=== PATIENT | male | born 1945 | race Caucasian/White ===

== ENCOUNTER → 2017-01-09 | Outpatient (CLI) | payer MEDICARE, BC | LOC: MW.CHFP 08:52 | PROVIDERS: ATTEND Emergency Medicine | DX: J44.9 Chronic obstructive pulmonary disease, unspecified (principal); I10 Essential (primary) hypertension; E83.42 Hypomagnesemia; N18.3 Chronic kidney disease, stage 3 (moderate); E11.9 Type 2 diabetes mellitus without complications; Z79.4 Long term (current) use of insulin | CPT/HCPCS: 36415; 80048; 82310; 83036; 83735; 83970; 85027; G0463 ==

== ENCOUNTER → 2017-01-26 | Outpatient (CLI) | payer MEDICARE, BC | LOC: MW.CHFP 08:00 | PROVIDERS: ATTEND Student in an Organized Health Care Education/Training Program | DX: Z51.81 Encounter for therapeutic drug level monitoring (principal); Z79.01 Long term (current) use of anticoagulants; I82.409 Acute embolism and thrombosis of unspecified deep veins of unspecified lower extremity | CPT/HCPCS: 85610; 99211 ==

== ENCOUNTER → 2017-02-26 | Outpatient (CLI) | payer MEDICARE, BC | LOC: MW.CHFP 08:00 | PROVIDERS: ATTEND Student in an Organized Health Care Education/Training Program | DX: Z51.81 Encounter for therapeutic drug level monitoring (principal); Z79.01 Long term (current) use of anticoagulants; I82.409 Acute embolism and thrombosis of unspecified deep veins of unspecified lower extremity | CPT/HCPCS: 85610; 99211 ==

== ENCOUNTER → 2017-03-30 | Outpatient (CLI) | payer MEDICARE, BC | LOC: MW.CHFP 08:00 | PROVIDERS: ATTEND Student in an Organized Health Care Education/Training Program | DX: Z51.81 Encounter for therapeutic drug level monitoring (principal); Z79.01 Long term (current) use of anticoagulants; I82.409 Acute embolism and thrombosis of unspecified deep veins of unspecified lower extremity | CPT/HCPCS: 85610; 99211 ==

== ENCOUNTER 2017-09-07 08:01 | Inpatient (IN) | payer MEDICARE, BC, OTHER ==
[2017-09-07] MEDS ORDERED: Sodium Chloride 0.9% 10 ML Syringe FLUSH PRN (08:15)
[2017-09-07] MEDS ORDERED: Sodium Chloride 0.9% 2.5 ML Syringe FLUSH PRN (08:15)
--- NOTE | 2017-09-07 08:15 | EDM.PDOC ---
ED HPI GENERAL MEDICAL PROBLEM - General Chief Complaint: Abdominal Pain Stated Complaint: LOWER LEFT BACK PAIN Time Seen by Provider: 09/07/17 08:02 - History of Present Illness INITIAL COMMENTS - FREE TEXT/NARRATIVE: HISTORY AND PHYSICAL: History of present illness: Patient is 72-year-old white male with multiple medical problems including diabetes renal insufficiency and hypertension presents with a concern of acute left flank pain it started last night states he has had cloudy urine for the last several days and decreased urine output denies fever chills nausea vomiting or other complaints no chest pain or shortness of breath Review of systems: As per history of present illness and below otherwise all systems reviewed and negative. Past medical history: As per history of present illness and as reviewed below otherwise noncontributory. Surgical history: As per history of present illness and as reviewed below otherwise noncontributory. Social history: No reported history of drug or alcohol abuse. Family history: As per history of present illness and as reviewed below otherwise noncontributory. Physical exam: HEENT: Atraumatic, normocephalic, pupils reactive, negative for conjunctival pallor or scleral icterus, mucous membranes moist, throat clear, neck supple, nontender, trachea midline. Lungs: Clear to auscultation, breath sounds equal bilaterally, chest nontender. Heart: S1S2, regular, negative for clicks, rubs, or JVD. Abdomen: Soft, nondistended, nontender. Negative for masses or hepatosplenomegaly. Left-sided costovertebral tenderness. Pelvis: Stable nontender. Genitourinary: Deferred. Rectal: Deferred. Extremities: Atraumatic, negative for cords or calf pain. Neurovascular unremarkable. Neuro: Awake, alert, oriented. Cranial nerves II through XII unremarkable. Cerebellum unremarkable. Motor and sensory unremarkable throughout. Exam nonfocal. Diagnostics: CBC CMP EKG chest x-ray CT abdomen and pelvis UA urine culture Therapeutics: IV O2 monitor Impression: #1 acute left flank pain #2 history of hypertension #3 history renal insufficiency #4 history diabetes Definitive disposition and diagnosis as appropriate pending reevaluation and review of above. Left Flank Pain Score (Numeric/FACES): 8 - Related Data Allergies Allergy/AdvReac Type Severity Reaction Status Date / Time metformin Allergy Body Aches Verified 10/13/16 11:08 simvastatin [From Zocor] Allergy Body Aches Verified 10/13/16 11:08 anesthesia Allergy Vomiting Uncoded 10/13/16 11:08 Home Meds: Home Meds Acetaminophen [Tylenol] 2 tab PO Q6H PRN 02/08/16 [History] Zolpidem Tartrate 5 mg PO BEDTIME PRN 02/08/16 [History] amLODIPine [Norvasc] 5 mg PO BEDTIME 02/08/16 [History] Albuterol [Proventil HFA] 6.7 gm INH Q6H PRN 10/13/16 [History] Doxazosin Mesylate [Cardura] 8 mg PO BEDTIME 10/13/16 [History] Ferrous Sulfate [Ferosul] 325 mg PO DAILY 10/13/16 [History] Finasteride 5 mg PO DAILY 10/13/16 [History] Fluticasone Propionate [Flonase] 1 spray NASBOTH BID 10/13/16 [History] Gabapentin [Neurontin] 100 mg PO BEDTIME 10/13/16 [History] Ipratropium [Atrovent] 0.5 mg NEB Q6HRRT 10/13/16 [History] Montelukast [Singulair] 10 mg PO DAILY 10/13/16 [History] Omeprazole 20 mg PO ASDIRECTED 10/13/16 [History] Rosuvastatin [Crestor] 10 mg PO BEDTIME 10/13/16 [History] Sertraline HCl 50 mg PO DAILY 10/13/16 [History] Tamsulosin [Flomax] 0.4 mg PO QPM 10/13/16 [History] Tiotropium [Spiriva HandiHaler] 18 mcg INH DAILY 10/13/16 [History] buPROPion HCl [Wellbutrin SR] 150 mg PO BEDTIME 10/13/16 [History] buPROPion HCl [Wellbutrin SR] 300 mg PO DAILY 10/13/16 [History] rOPINIRole HCl [Requip] 1 mg PO TID PRN 10/13/16 [History] Budesonide/Formoterol Fumarate [Symbicort 80-4.5 Mcg Inhaler] 2 inh IH BID 10/14 [History] Insulin NPH Human Isophane [Humulin N] 1 units SUBCUT BID 10/14/16 [History] Metoprolol Succinate [Toprol XL] 200 mg PO DAILY 10/14/16 [History] Past Medical History HEENT History: Reports: Cataract, Hard of Hearing Other HEENT History: has top denture, [place] hearing aids Cardiovascular History: Reports: Aneurysm, CAD, Heart Failure, Hypertension Respiratory History: Reports: COPD Gastrointestinal History: Reports: GERD Genitourinary History: Reports: BPH Musculoskeletal History: Reports: Arthritis, Fracture Psychiatric History: Reports: Anxiety, Depression Endocrine/Metabolic History: Reports: Diabetes, Type II, Obesity/BMI 30+ Hematologic History: Reports: B12 Deficiency, Blood Transfusion(s) Immunologic History: Reports: None Oncologic (Cancer) History: Reports: None Dermatologic History: Reports: None - Past Surgical History Cardiovascular Surgical History: Reports: AAA Repair Social & Family History - Family History Family Medical History: Noncontributory - Tobacco Use Smoking Status *Q: Former Smoker Years of Tobacco use: 40 Used Tobacco, but Quit: Yes Month Tobacco Last Used: 2001 - Caffeine Use Caffeine Use: Reports: Coffee - Alcohol Use Days Per Week of Alcohol Use: 0 - Recreational Drug Use Recreational Drug Use: No ED ROS GENERAL - Review of Systems Review Of Systems: ROS reveals no pertinent complaints other than HPI. ED EXAM, GENERAL - Physical Exam Exam: See Below Course - Vital Signs Last Recorded V/S: Last Vital Signs Temp 37.4 C 09/08/17 04:00 Pulse 80 09/07/17 20:45 Resp 15 09/08/17 06:00 BP 115/44 L 09/08/17 06:00 Pulse Ox 94 L 09/08/17 06:00 - Orders/Labs/Meds Orders: Active Orders 24 hr Category Date Time Status Patient Status [ADT] Stat ADT 09/07/17 10:15 Active Cardiac Monitoring [RC] Q8H Care 09/07/17 08:15 Active EKG 12 Lead [EKG Documentation Completion] [RC] STAT Care 09/07/17 09:04 Inactive Pulse Oximetry [RC] ASDIRECTED Care 09/07/17 08:15 Active CULTURE BLOOD [BC] Stat Lab 09/07/17 08:50 Results CULTURE BLOOD [BC] Stat Lab 09/07/17 09:00 Results CULTURE URINE [RM] Stat Lab 09/07/17 08:45 Received Sodium Chloride 0.9% [Saline Flush] Med 09/07/17 08:15 Active 10 ml FLUSH ASDIRECTED PRN Sodium Chloride 0.9% [Saline Flush] Med 09/07/17 08:15 Active 2.5 ml FLUSH ASDIRECTED PRN Blood Culture x2 Reflex Set [OM.PC] Stat Oth 09/07/17 08:15 Ordered Saline Lock Insert [OM.PC] Stat Oth 09/07/17 08:15 Ordered Medication Orders Albuterol/Ipratropium (Duoneb 3.0-0.5 Mg/3 Ml) 3 ml NEB Q4HRRT PRN PRN Reason: Wheezing Last Admin: 09/08/17 02:44 Dose: 3 ml Admin: 09/07/17 22:01 Dose: 3 ml Heparin Sodium (Porcine) (Heparin Sodium) 5,000 units SUBCUT Q8H SAUNDRA Last Admin: 09/08/17 05:56 Dose: 5,000 units Admin: 09/07/17 23:25 Dose: 5,000 units Hydromorphone HCl (Dilaudid) 1 mg IVPUSH Q4H PRN PRN Reason: Pain (severe 7-10) Last Admin: 09/08/17 04:43 Dose: 1 mg Admin: 09/07/17 21:37 Dose: 1 mg Sodium Chloride (Normal Saline) 500 mls @ 999 mls/hr IV STAT SAUNDRA Cefepime HCl 2 gm/ Premix 50 mls @ 100 mls/hr IV Q12HR SAUNDRA Last Admin: 09/07/17 20:09 Dose: 100 mls/hr Norepinephrine Bitartrate (Norepinephr-0.9% Nacl 4 Mg/250) 250 mls @ 7.5 mls/ hr IV TITRATE SAUNDRA; 2 MCG/MIN PRN Reason: Protocol Last Titration: 09/08/17 00:26 Dose: 10 mcg/min, 37.5 mls/hr Titration: 09/07/17 23:41 Dose: 8 mcg/min, 30 mls/hr Titration: 09/07/17 23:05 Dose: 10 mcg/min, 37.5 mls/hr Titration: 09/07/17 23:00 Dose: 9 mcg/min, 33.75 mls/hr Titration: 09/07/17 22:56 Dose: 8 mcg/min, 30 mls/hr Titration: 09/07/17 22:51 Dose: 7 mcg/min, 26.25 mls/hr Titration: 09/07/17 22:51 Dose: 6 mcg/min, 22.5 mls/hr Titration: 09/07/17 22:40 Dose: 5 mcg/min, 18.75 mls/hr Titration: 09/07/17 22:35 Dose: 4 mcg/min, 15 mls/hr Admin: 09/07/17 22:28 Dose: 2 mcg/min, 7.5 mls/hr Pantoprazole Sodium 40 mg/ (Sodium Chloride) 10 mls @ 300 mls/hr IVPUSH DAILY SAUNDRA Sodium Chloride (Sodium Chloride 0.45%) 1,000 mls @ 125 mls/hr IV ASDIRECTED SAUNDRA Last Admin: 09/07/17 23:26 Dose: 125 mls/hr Sodium Chloride (Normal Saline) 250 mls @ 500 mls/hr IV ASDIRECTED SAUNDRA Last Admin: 09/08/17 01:50 Dose: 500 mls/hr Tobramycin 120 mg/ Sodium (Chloride) 103 mls @ 103 mls/hr IV Q24H SAUNDRA Insulin Aspart (Novolog) 0 unit SUBCUT Q4H SAUNDRA PRN Reason: Protocol Last Admin: 09/08/17 05:55 Dose: Not Given Admin: 09/08/17 02:47 Dose: 2 units Ondansetron HCl (Zofran) 4 mg IVPUSH Q3H PRN PRN Reason: Nausea Last Admin: 09/07/17 13:34 Dose: 4 mg Sodium Chloride (Saline Flush) 10 ml FLUSH ASDIRECTED PRN PRN Reason: Keep Vein Open Sodium Chloride (Saline Flush) 2.5 ml FLUSH ASDIRECTED PRN PRN Reason: Keep Vein Open Labs: Laboratory Tests 09/07/17 09/07/17 09/07/17 Range/Units 08:34 08:34 08:34 WBC 16.43 H (4.0-11.0) K/uL RBC 4.04 L (4.50-5.90) M/uL Hgb 12.3 L (13.0-17.0) g/dL Hct 37.8 L (38.0-50.0) % MCV 93.6 (80.0-98.0) fL MCH 30.4 (27.0-32.0) pg MCHC 32.5 (31.0-37.0) g/dL RDW Std Deviation 47.5 (28.0-62.0) fl RDW Coeff of Jaleesa 14 (11.0-15.0) % Plt Count 301 (150-400) K/uL MPV 9.80 (7.40-12.00) fL Neut % (Auto) 83.4 H (48.0-80.0) % Lymph % (Auto) 8.1 L (16.0-40.0) % Isabella % (Auto) 7.3 (0.0-15.0) % Eos % (Auto) 1.1 (0.0-7.0) % Baso % (Auto) 0.1 (0.0-1.5) % Neut # (Auto) 13.7 H (1.4-5.7) K/uL Lymph # (Auto) 1.3 (0.6-2.4) K/uL Isabella # (Auto) 1.2 H (0.0-0.8) K/uL Eos # (Auto) 0.2 (0.0-0.7) K/uL Baso # (Auto) 0.0 (0.0-0.1) K/uL Nucleated RBC % 0.0 /100WBC Nucleated RBCs # 0 K/uL INR 0.98 (0.86-1.11) Lactate 1.6 (0.20-2.00) mmol/L Sodium (136-146) mmol/L Potassium (3.5-5.1) mmol/L Chloride (98-110) mmol/L Carbon Dioxide (21-31) mmol/L BUN (6.0-23.0) mg/dL Creatinine (0.6-1.5) mg/dL Est Cr Clr Drug Dosing Estimated GFR (MDRD) ml/min Glucose (60-110) mg/dL Calcium (8.8-10.8) mg/dL Total Bilirubin (0.1-1.5) mg/dL AST (5-40) IU/L ALT (8-54) IU/L Alkaline Phosphatase (40-150) Total Protein (6.0-8.0) g/dL Albumin (3.4-4.8) g/dL Globulin (2.0-3.5) g/dL Albumin/Globulin Ratio (1.3-2.8) Urine Color Urine Appearance Urine pH (5.0-8.0) Ur Specific [place] (1.001-1.035) Urine Protein (NEGATIVE) mg/dL Urine Glucose (UA) (NEGATIVE) mg/dL Urine Ketones (NEGATIVE) mg/dL Urine Occult Blood (NEGATIVE) Urine Nitrite (NEGATIVE) Urine Bilirubin (NEGATIVE) Urine Urobilinogen (<2.0) EU/dL Ur Leukocyte Esterase (NEGATIVE) Urine RBC (0-2/HPF) Urine WBC (0-5/HPF) Ur Epithelial Cells (NONE-FEW) Urine Bacteria (NEGATIVE) 09/07/17 09/07/17 Range/Units 08:34 08:45 WBC (4.0-11.0) K/uL RBC (4.50-5.90) M/uL Hgb (13.0-17.0) g/dL Hct (38.0-50.0) % MCV (80.0-98.0) fL MCH (27.0-32.0) pg MCHC (31.0-37.0) g/dL RDW Std Deviation (28.0-62.0) fl RDW Coeff of Jaleesa (11.0-15.0) % Plt Count (150-400) K/uL MPV (7.40-12.00) fL Neut % (Auto) (48.0-80.0) % Lymph % (Auto) (16.0-40.0) % Isabella % (Auto) (0.0-15.0) % Eos % (Auto) (0.0-7.0) % Baso % (Auto) (0.0-1.5) % Neut # (Auto) (1.4-5.7) K/uL Lymph # (Auto) (0.6-2.4) K/uL Isabella # (Auto) (0.0-0.8) K/uL Eos # (Auto) (0.0-0.7) K/uL Baso # (Auto) (0.0-0.1) K/uL Nucleated RBC % /100WBC Nucleated RBCs # K/uL INR (0.86-1.11) Lactate (0.20-2.00) mmol/L Sodium 139 (136-146) mmol/L Potassium 5.1 (3.5-5.1) mmol/L Chloride 113 H (98-110) mmol/L Carbon Dioxide 17 L (21-31) mmol/L BUN 35 H (6.0-23.0) mg/dL Creatinine 1.9 H (0.6-1.5) mg/dL Est Cr Clr Drug Dosing TNP Estimated GFR (MDRD) 35.1 ml/min Glucose 202 H (60-110) mg/dL Calcium 9.1 (8.8-10.8) mg/dL Total Bilirubin 0.7 (0.1-1.5) mg/dL AST 17 (5-40) IU/L ALT 22 (8-54) IU/L Alkaline Phosphatase 76 (40-150) Total Protein 7.1 (6.0-8.0) g/dL Albumin 3.8 (3.4-4.8) g/dL Globulin 3.3 (2.0-3.5) g/dL Albumin/Globulin Ratio 1.2 L (1.3-2.8) Urine Color YELLOW Urine Appearance CLOUDY Urine pH 5.5 (5.0-8.0) Ur Specific [place] >= 1.030 (1.001-1.035) Urine Protein 100 (NEGATIVE) mg/dL Urine Glucose (UA) NEGATIVE (NEGATIVE) mg/dL Urine Ketones NEGATIVE (NEGATIVE) mg/dL Urine Occult Blood LARGE H (NEGATIVE) Urine Nitrite POSITIVE H (NEGATIVE) Urine Bilirubin NEGATIVE (NEGATIVE) Urine Urobilinogen 0.2 (<2.0) EU/dL Ur Leukocyte Esterase SMALL (NEGATIVE) Urine RBC 75-80 (0-2/HPF) Urine WBC TO NUMEROUS TO COUNT H (0-5/HPF) Ur Epithelial Cells RARE (NONE-FEW) Urine Bacteria 2+ H (NEGATIVE) Meds: Medications Generic Name Dose Route Start Last Admin Trade Name Freq PRN Reason Stop Dose Admin Albuterol/Ipratropium 3 ml 09/07/17 20:43 09/08/17 02:44 Duoneb 3.0-0.5 Mg/3 Ml NEB 3 ml Q4HRRT PRN Administration Wheezing Heparin Sodium (Porcine) 5,000 units 09/07/17 22:45 09/08/17 05:56 Heparin Sodium SUBCUT 5,000 units Q8H SAUNDRA Administration Hydromorphone HCl 1 mg 09/07/17 21:27 09/08/17 04:43 Dilaudid IVPUSH 1 mg Q4H PRN Administration Pain (severe 7-10) Sodium Chloride 500 mls @ 999 mls/hr 09/07/17 16:19 Normal Saline IV STAT SAUNDRA Cefepime HCl 2 gm/ Premix 50 mls @ 100 mls/hr 09/07/17 21:00 09/07/17 20:09 IV 100 mls/hr Q12HR SAUNDRA Administration Norepinephrine Bitartrate 250 mls @ 7.5 mls/hr 09/07/17 22:13 09/08/17 00:26 Norepinephr-0.9% Nacl 4 Mg/250 IV 10 mcg/min TITRATE SAUNDRA 37.5 mls/hr Protocol Titration 2 MCG/MIN Pantoprazole Sodium 40 mg/ 10 mls @ 300 mls/hr 09/08/17 09:00 Sodium Chloride IVPUSH DAILY SAUNDRA Sodium Chloride 1,000 mls @ 125 mls/hr 09/07/17 23:00 09/07/17 23:26 Sodium Chloride 0.45% IV 125 mls/hr ASDIRECTED SAUNDRA Administration Sodium Chloride 250 mls @ 500 mls/hr 09/08/17 01:45 09/08/17 01:50 Normal Saline IV 500 mls/hr ASDIRECTED SAUNDRA Administration Tobramycin 120 mg/ Sodium 103 mls @ 103 mls/hr 09/08/17 18:00 Chloride IV Q24H [facility] Insulin Aspart 0 unit 09/08/17 02:00 09/08/17 05:55 Novolog SUBCUT Not Given Q4H [facility] Protocol Ondansetron HCl 4 mg 09/07/17 13:14 09/07/17 13:34 Zofran IVPUSH 4 mg Q3H PRN Administration Nausea Sodium Chloride 10 ml 09/07/17 08:15 Saline Flush FLUSH ASDIRECTED PRN Keep Vein Open Sodium Chloride 2.5 ml 09/07/17 08:15 Saline Flush FLUSH ASDIRECTED PRN Keep Vein Open Discontinued Medications Generic Name Dose Route Start Last Admin Trade Name Freq PRN Reason Stop Dose Admin Dopamine HCl 400 mg 09/07/17 16:40 Dopamine .ROUTE 09/07/17 16:41 .STK-MED ONE Ephedrine Sulfate Confirm 09/07/17 16:39 Ephedrine Sulfate Administered 09/07/17 16:40 Dose 50 mg .ROUTE .STK-MED ONE Ephedrine Sulfate Confirm 09/07/17 17:12 Ephedrine Sulfate Administered 09/07/17 17:13 Dose 50 mg .ROUTE .STK-MED ONE Etomidate Confirm 09/07/17 16:37 Amidate Administered 09/07/17 16:38 Dose 40 mg IVPUSH .STK-MED ONE Fentanyl Confirm 09/07/17 17:25 Sublimaze Administered 09/07/17 17:26 Dose 100 mcg .ROUTE .STK-MED ONE Hydromorphone HCl 2 mg 09/07/17 13:12 09/07/17 13:35 Dilaudid IVPUSH 2 mg Q4H PRN Administration Pain Ceftriaxone Sodium/Dextrose 1 50 mls @ 100 mls/hr 09/07/17 09:19 09/07/17 09: 25 gm/ Premix IV 09/07/17 09:48 100 mls/hr ONETIME ONE Administration Sodium Chloride 1,000 mls @ 125 mls/hr 09/07/17 10:15 09/07/17 11:40 Normal Saline IV 125 mls/hr STAT SAUNDRA Administration Ciprofloxacin/Dextrose 400 mg/ 200 mls @ 200 mls/hr 09/07/17 13:30 09/07/17 13:34 Premix IV 200 mls/hr Q12H SAUNDRA Administration Sodium Chloride Confirm 09/07/17 16:39 Normal Saline Administered 09/07/17 16:40 Dose 20 mls @ as directed .ROUTE .STK-MED ONE Tobramycin 120 mg/ Sodium 103 mls @ 206 mls/hr 09/07/17 17:30 09/07/17 17:30 Chloride IV 09/07/17 17:59 206 mls/hr ONETIME ONE Administration Ampicillin Sodium 2 gm/ Sodium 100 mls @ 200 mls/hr 09/07/17 19:00 09/07/17 20:14 Chloride IV Not Given Q6H SAUNDRA Lactated Ringer's 1,000 mls @ 200 mls/hr 09/07/17 18:30 09/07/17 20:00 Ringers, Lactated IV 200 mls/hr ASDIRECTED SAUNDRA Administration Tobramycin 120 mg/ Sodium 103 mls @ 103 mls/hr 09/08/17 06:00 Chloride IV Q12H SAUNDRA Norepinephrine Bitartrate 4 mg 250 mls @ 7.5 mls/hr 09/07/17 21:30 / Dextrose/Water IV TITRATE SAUNDRA Protocol 2 MCG/MIN Lactated Ringer's 1,000 mls @ 100 mls/hr 09/07/17 21:30 09/07/17 22:31 Ringers, Lactated IV 100 mls/hr ASDIRECTED SAUNDRA Administration Insulin Aspart 0 unit 09/07/17 20:00 09/07/17 21:53 Novolog SUBCUT 2 units Q6H SAUNDRA Administration Protocol Insulin Aspart 2 unit 09/07/17 23:00 09/07/17 23:18 Novolog SUBCUT 09/07/17 23:01 2 units ONETIME ONE Administration Iopamidol Confirm 09/07/17 15:02 Isovue-200 (41%) Administered 09/07/17 15:03 Dose 50 ml .ROUTE .STK-MED ONE Lidocaine Confirm 09/07/17 16:37 Xylocaine-Mpf 2% Administered 09/07/17 16:38 Dose 5 ml .ROUTE .STK-MED ONE Midazolam HCl Confirm 09/07/17 16:38 Versed 1 Mg/Ml Administered 09/07/17 16:39 Dose 2 mg .ROUTE .STK-MED ONE Norepinephrine Bitartrate 4 mg 09/07/17 16:40 Levophed .ROUTE 09/07/17 16:41 .STK-MED ONE Phenylephrine HCl Confirm 09/07/17 16:37 Phenylephrine In Ns 100 Mcg/Ml Administered 09/07/17 16:38 Dose 1 mg .ROUTE .STK-MED ONE Phenylephrine HCl Confirm 09/07/17 17:12 Phenylephrine In Ns 100 Mcg/Ml Administered 09/07/17 17:13 Dose 1 mg .ROUTE .STK-MED ONE Sodium Bicarbonate 50 meq 09/07/17 22:55 09/07/17 23:25 Sodium Bicarbonate 8.4% IVPUSH 09/07/17 22:56 50 meq ONETIME ONE Administration Departure - Departure Time of Disposition: 09:00 Disposition: Admitted As Inpatient 67 Condition: Good Clinical Impression: Obstructive uropathy, UTI (urinary tract infection) - Discharge Information - My Orders Last 24 Hours: My Active Orders 09/07/17 08:15 Cardiac Monitoring [RC] Q8H Pulse Oximetry [RC] ASDIRECTED Sodium Chloride 0.9% [Saline Flush] 10 ml FLUSH ASDIRECTED PRN Sodium Chloride 0.9% [Saline Flush] 2.5 ml FLUSH ASDIRECTED PRN Blood Culture x2 Reflex Set [OM.PC] Stat Saline Lock Insert [OM.PC] Stat 09/07/17 08:45 CULTURE URINE [RM] Stat 09/07/17 08:50 CULTURE BLOOD [BC] Stat 09/07/17 09:00 CULTURE BLOOD [BC] Stat 09/07/17 09:04 EKG 12 Lead [EKG Documentation Completion] [RC] STAT 09/07/17 10:15 Patient Status [ADT] Stat - Assessment/Plan Last 24 Hours: My Active Orders 09/07/17 08:15 Cardiac Monitoring [RC] Q8H Pulse Oximetry [RC] ASDIRECTED Sodium Chloride 0.9% [Saline Flush] 10 ml FLUSH ASDIRECTED PRN Sodium Chloride 0.9% [Saline Flush] 2.5 ml FLUSH ASDIRECTED PRN Blood Culture x2 Reflex Set [OM.PC] Stat Saline Lock Insert [OM.PC] Stat 09/07/17 08:45 CULTURE URINE [RM] Stat 09/07/17 08:50 CULTURE BLOOD [BC] Stat 09/07/17 09:00 CULTURE BLOOD [BC] Stat 09/07/17 09:04 EKG 12 Lead [EKG Documentation Completion] [RC] STAT 09/07/17 10:15 Patient Status [ADT] Stat
[2017-09-07 09:11] LABS: CHLORIDE,CL 113 mmol/L (98-110); SODIUM,NA 139 mmol/L (136-146)
[2017-09-07] MEDS ORDERED: cefTRIAXone 1,000 MG in Sodium Chloride 0.9% 50 ML IV ONE (09:15)
[2017-09-07] MEDS ORDERED: cefTRIAXone 1 GM in Premix Bag 1 BAG IV ONE (09:19)
--- NOTE | 2017-09-07 09:35 | CT ---
CT of the abdomen and pelvis without contrast. HISTORY: Pain TECHNIQUE: Axial CT images were obtained of the abdomen and pelvis without contrast. Coronal and sagi ttal reconstructions obtained. FINDINGS: The lung bases are clear, no pleural effusion. There is a small hiatal hernia with postsurgical stephens es noted near the gastroesophageal junction. The liver, spleen, adrenal glands, and pancreas appear unremarkable for noncontrast examination. Chol ecystectomy. There is no bulky retroperitoneal lymphadenopathy. No abdominal ascites. There is a 5 mm obstructing stone within the proximal left ureter with moderate proximal hydronephros is and perinephric stranding. Nonobstructing nephrolithiasis also noted bilaterally. Small renal rina ical cysts noted. The large and small bowel are normal in caliber without evidence of obstruction. Appendectomy. There is no bulky pelvic lymphadenopathy. No free fluid. No free air. There is a right inguinal hernia cont aining a small portion of bladder. There is a bifurcating aortico biiliac stent. The visualized osseous structures appear normal. IMPRESSION: 1. There is a 5 mm obstructing stone within the proximal left ureter with proximal hydronephrosis. 2. Nonobstructing nephrolithiasis bilaterally. 3. Small right inguinal hernia containing a portion of the bladder.
--- NOTE | 2017-09-07 09:36 | CR ---
EXAMINATION: Two-view chest (PA and Lateral views). HISTORY: Shortness of breath. FINDINGS: The trachea is midline. The cardiomediastinal silhouette is within normal limits. No pulmonary infilt rates, effusions or pneumothorax. Osseous structures appear unremarkable. Postsurgical changes noted within the right shoulder. IMPRESSION: No acute cardiopulmonary process.
[2017-09-07] MEDS ORDERED: Sodium Chloride 0.9% 1,000 ML IV SCH (10:15)
[2017-09-07] MEDS ORDERED: HYDROmorphone 2 MG/ML Syringe IVPUSH PRN (13:12)
[2017-09-07] MEDS ORDERED: Ciprofloxacin in D5W 400 MG in Premix Bag 1 BAG IV SCH ×2 (13:30)
[2017-09-07] MEDS: Ondansetron 4 MG/2 ML SDV IVPUSH PRN (13:34)
--- NOTE | 2017-09-07 13:49 | PCM.PREANE ---
Preanesthetic Assessment - Anesthesia/Transfusion/Family Hx Anesthesia History: Prior Anesthesia Reaction Type of Anesthesia Reaction: Excessive Nausea/Vomiting Family History of Anesthesia Reaction: No Transfusion History: Prior Transfusion Without Reaction - Review of Systems General: Weakness, Fatigue Cardiovascular: Dyspnea on Exertion Gastrointestinal: Abdominal Pain Other: Reports: Easy Bleeding - Physical Assessment NPO Status Date: 09/06/17 (npo mn for solids, clear liqs till 1300) O2 Sat by Pulse Oximetry: 96 Respiratory Rate: 18 Vital Signs: Last Vital Signs Temp 37.6 C 09/07/17 11:18 Pulse 82 09/07/17 11:18 Resp 18 09/07/17 11:18 BP 170/90 H 09/07/17 11:18 Pulse Ox 96 09/07/17 11:18 Height: 1.7 m Weight: 103.2 kg ASA Class: 3E Mental Status: Alert & Oriented x3 Airway Class: Mallampati = 2 Dentition: Reports: Dentures (upper plate) ROM/Head Extension: Full Lungs: Clear to Auscultation, Normal Respiratory Effort Cardiovascular: Regular Rate - Lab Values: Laboratory Last Values WBC 16.43 K/uL (4.0-11.0) H 09/07/17 08:34 RBC 4.04 M/uL (4.50-5.90) L 09/07/17 08:34 Hgb 12.3 g/dL (13.0-17.0) L 09/07/17 08:34 Hct 37.8 % (38.0-50.0) L 09/07/17 08:34 MCV 93.6 fL (80.0-98.0) 09/07/17 08:34 MCH 30.4 pg (27.0-32.0) 09/07/17 08:34 MCHC 32.5 g/dL (31.0-37.0) 09/07/17 08:34 RDW Std Deviation 47.5 fl (28.0-62.0) 09/07/17 08:34 RDW Coeff of Jaleesa 14 % (11.0-15.0) 09/07/17 08:34 Plt Count 301 K/uL (150-400) 09/07/17 08:34 MPV 9.80 fL (7.40-12.00) 09/07/17 08:34 Neut % (Auto) 83.4 % (48.0-80.0) H 09/07/17 08:34 Lymph % (Auto) 8.1 % (16.0-40.0) L 09/07/17 08:34 Fisher % (Auto) 7.3 % (0.0-15.0) 09/07/17 08:34 Eos % (Auto) 1.1 % (0.0-7.0) 09/07/17 08:34 Baso % (Auto) 0.1 % (0.0-1.5) 09/07/17 08:34 Neut # (Auto) 13.7 K/uL (1.4-5.7) H 09/07/17 08:34 Lymph # (Auto) 1.3 K/uL (0.6-2.4) 09/07/17 08:34 Fisher # (Auto) 1.2 K/uL (0.0-0.8) H 09/07/17 08:34 Eos # (Auto) 0.2 K/uL (0.0-0.7) 09/07/17 08:34 Baso # (Auto) 0.0 K/uL (0.0-0.1) 09/07/17 08:34 Nucleated RBC % 0.0 /100WBC 09/07/17 08:34 Nucleated RBCs # 0 K/uL 09/07/17 08:34 INR 0.98 (0.86-1.11) 09/07/17 08:34 Lactate 1.6 mmol/L (0.20-2.00) 09/07/17 08:34 Sodium 139 mmol/L (136-146) 09/07/17 08:34 Potassium 5.1 mmol/L (3.5-5.1) 09/07/17 08:34 Chloride 113 mmol/L (98-110) H 09/07/17 08:34 Carbon Dioxide 17 mmol/L (21-31) L 09/07/17 08:34 BUN 35 mg/dL (6.0-23.0) H 09/07/17 08:34 Creatinine 1.9 mg/dL (0.6-1.5) H 09/07/17 08:34 Est Cr Clr Drug Dosing TNP 09/07/17 08:34 Estimated GFR (MDRD) 35.1 ml/min 09/07/17 08:34 Glucose 202 mg/dL (60-110) H 09/07/17 08:34 Calcium 9.1 mg/dL (8.8-10.8) 09/07/17 08:34 Total Bilirubin 0.7 mg/dL (0.1-1.5) 09/07/17 08:34 AST 17 IU/L (5-40) 09/07/17 08:34 ALT 22 IU/L (8-54) 09/07/17 08:34 Alkaline Phosphatase 76 (40-150) 09/07/17 08:34 Total Protein 7.1 g/dL (6.0-8.0) 09/07/17 08:34 Albumin 3.8 g/dL (3.4-4.8) 09/07/17 08:34 Globulin 3.3 g/dL (2.0-3.5) 09/07/17 08:34 Albumin/Globulin Ratio 1.2 (1.3-2.8) L 09/07/17 08:34 Urine Color YELLOW 09/07/17 08:45 Urine Appearance CLOUDY 09/07/17 08:45 Urine pH 5.5 (5.0-8.0) 09/07/17 08:45 Ur Specific [place] >= 1.030 (1.001-1.035) 09/07/17 08:45 Urine Protein 100 mg/dL (NEGATIVE) 09/07/17 08:45 Urine Glucose (UA) NEGATIVE mg/dL (NEGATIVE) 09/07/17 08:45 Urine Ketones NEGATIVE mg/dL (NEGATIVE) 09/07/17 08:45 Urine Occult Blood LARGE (NEGATIVE) H 09/07/17 08:45 Urine Nitrite POSITIVE (NEGATIVE) H 09/07/17 08:45 Urine Bilirubin NEGATIVE (NEGATIVE) 09/07/17 08:45 Urine Urobilinogen 0.2 EU/dL (<2.0) 09/07/17 08:45 Ur Leukocyte Esterase SMALL (NEGATIVE) 09/07/17 08:45 Urine RBC 75-80 (0-2/HPF) 09/07/17 08:45 Urine WBC TO NUMEROUS TO COUNT (0-5/HPF) H 09/07/17 08:45 Ur Epithelial Cells RARE (NONE-FEW) 09/07/17 08:45 Urine Bacteria 2+ (NEGATIVE) H 09/07/17 08:45 - Allergies Allergies/Adverse Reactions: Allergies Allergy/AdvReac Type Severity Reaction Status Date / Time metformin Allergy Body Aches Verified 10/13/16 11:08 simvastatin [From Zocor] Allergy Body Aches Verified 10/13/16 11:08 anesthesia Allergy Vomiting Uncoded 10/13/16 11:08 - Anesthesia Plan Beta Valente: Metoprolol - Acknowledgements Anesthesia Type Planned: General Anesthesia Pt an Appropriate Candidate for the Planned Anesthesia: Yes Alternatives and Risks of Anesthesia Discussed w Pt/Guardian: Yes Pt/Guardian Understands and Agrees with Anesthesia Plan: Yes Additional Comments: Chief complaint: obstructive uropathy secondary to renal stone Scheduled procedure: stent placement PMH: NOATAK, HTN, HLD, CKD3 (Cr=1.9 today, K=5.1), hx of acute renal failure (ATN of unknown cause) in 2016 - on dialysis for a short time (intubated for transfer to [place] for the ATN in 2016 but it appears that the intubation was for transport, not for acute respiratory failure), COPD (unknown severity and reserve), BPH, GERD, CHF (by history but no description of severity and no Echo in chart, no failure on CXR today), "atherosclerotic heart disease" in history with s/p AAA repair, (but no description of CAD, and no cath report), Hx of DVT in 2016 (hx of coumadin use, but INR=.98 today), VANI (hx of CPAP use), DM2 on insulin. Allergies: metformin and Zocor Plan: continue NPO status until time of surgery at 6 pm tonight. IV narcotics for pain management before surgery. Check blood sugar before surgery tonight ( glucose was 202 at -830 today), Anticipate GET with LMA, avoid unnecessary fluid administration because status of cardiac contractility and diastolic function/dysfunction are unknown. Will need aggressive post-op management of blood sugars, COPD, VANI, fluid management, and renal function. Consideration should be given to possible ICU placement and co-management with hospitalist. PreAnesthesia Questionnaire HEENT History: Reports: Cataract, Hard of Hearing Other HEENT History: has top denture, al[employer] ro[employer] hearing aids Cardiovascular History: Reports: Aneurysm, Blood Clots/VTE/DVT, CAD, Heart Failure, Hypertension Respiratory History: Reports: Asthma, COPD Gastrointestinal History: Reports: GERD Genitourinary History: Reports: Acute Renal Failure, BPH Other Genitourinary History: ARF X 1 year ago Musculoskeletal History: Reports: Arthritis, Fracture Psychiatric History: Reports: Anxiety, Depression Endocrine/Metabolic History: Reports: Diabetes, Type II, Obesity/BMI 30+ Hematologic History: Reports: B12 Deficiency, Blood Transfusion(s) Immunologic History: Reports: None Oncologic (Cancer) History: Reports: None Dermatologic History: Reports: None - Past Surgical History Cardiovascular Surgical History: Reports: AAA Repair Other Cardiovascular Surgeries/Procedures: Stent placed GI Surgical History: Reports: Other (See Below) Other GI Surgeries/Procedures: Gastric bypass X 10 years ago Neurological Surgical History: Reports: Lumbar Spine Other Neurological Surgeries/Procedures: 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 - SUBSTANCE USE Smoking Status *Q: Former Smoker Tobacco Use Within Last Twelve Months: No Days Per Week of Alcohol Use: 0 Recreational Drug Use History: No - HOME MEDS Home Medications: Home Meds Acetaminophen [Tylenol] 2 tab PO Q6H PRN 02/08/16 [History] Zolpidem Tartrate 5 mg PO BEDTIME PRN 02/08/16 [History] amLODIPine [Norvasc] 5 mg PO BEDTIME 02/08/16 [History] Albuterol [Proventil HFA] 6.7 gm INH Q6H PRN 10/13/16 [History] Doxazosin Mesylate [Cardura] 8 mg PO BEDTIME 10/13/16 [History] Ferrous Sulfate [Ferosul] 325 mg PO DAILY 10/13/16 [History] Finasteride 5 mg PO DAILY 10/13/16 [History] Fluticasone Propionate [Flonase] 1 spray NASBOTH BID 10/13/16 [History] Gabapentin [Neurontin] 100 mg PO BEDTIME 10/13/16 [History] Ipratropium [Atrovent] 0.5 mg NEB Q6HRRT 10/13/16 [History] Montelukast [Singulair] 10 mg PO DAILY 10/13/16 [History] Omeprazole 20 mg PO ASDIRECTED 10/13/16 [History] Rosuvastatin [Crestor] 10 mg PO BEDTIME 10/13/16 [History] Sertraline HCl 50 mg PO DAILY 10/13/16 [History] Tamsulosin [Flomax] 0.4 mg PO QPM 10/13/16 [History] Tiotropium [Spiriva HandiHaler] 18 mcg INH DAILY 10/13/16 [History] buPROPion HCl [Wellbutrin SR] 150 mg PO BEDTIME 10/13/16 [History] buPROPion HCl [Wellbutrin SR] 300 mg PO DAILY 10/13/16 [History] rOPINIRole HCl [Requip] 1 mg PO TID PRN 10/13/16 [History] Budesonide/Formoterol Fumarate [Symbicort 80-4.5 Mcg Inhaler] 2 inh IH BID 10/14 [History] Insulin NPH Human Isophane [Humulin N] 1 units SUBCUT BID 10/14/16 [History] Metoprolol Succinate [Toprol XL] 200 mg PO DAILY 10/14/16 [History] - CURRENT (IN HOUSE) MEDS Current Meds: Current Medications Hydromorphone HCl (Dilaudid) 2 mg IVPUSH Q4H PRN PRN Reason: Pain Last Admin: 09/07/17 13:35 Dose: 2 mg Sodium Chloride (Normal Saline) 1,000 mls @ 125 mls/hr IV STAT SAUNDRA Last Admin: 09/07/17 11:40 Dose: 125 mls/hr Ciprofloxacin/Dextrose 400 mg/ (Premix) 200 mls @ 200 mls/hr IV Q12H SAUNDRA Last Admin: 09/07/17 13:34 Dose: 200 mls/hr Ondansetron HCl (Zofran) 4 mg IVPUSH Q3H PRN PRN Reason: Nausea Last Admin: 09/07/17 13:34 Dose: 4 mg Sodium Chloride (Saline Flush) 10 ml FLUSH ASDIRECTED PRN PRN Reason: Keep Vein Open Sodium Chloride (Saline Flush) 2.5 ml FLUSH ASDIRECTED PRN PRN Reason: Keep Vein Open Discontinued Medications Ceftriaxone Sodium/Dextrose 1 (gm/ Premix) 50 mls @ 100 mls/hr IV ONETIME ONE Stop: 09/07/17 09:48 Last Admin: 09/07/17 09:25 Dose: 100 mls/hr
[2017-09-07] MEDS ORDERED: Iopamidol 408 MG/ML 50 ML SDV ONE (15:02)
[2017-09-07] MEDS ORDERED: Sodium Chloride 0.9% 500 ML IV SCH (16:19)
[2017-09-07] MEDS ORDERED: Phenylephrine/Normal Saline 100 MCG/ML 10 ML Syringe ONE ×2 (16:37→17:12)
[2017-09-07] MEDS ORDERED: Etomidate 2 MG/ML 20 ML SDV IVPUSH ONE (16:37)
[2017-09-07] MEDS ORDERED: Lidocaine 2% 5 ML SDV ONE (16:37)
[2017-09-07] MEDS ORDERED: Midazolam 1 MG/ML 2 ML SDV ONE (16:38)
[2017-09-07] MEDS ORDERED: ePHEDrine 50 MG/ML SDV ONE ×2 (16:39→17:12)
[2017-09-07] MEDS ORDERED: Sodium Chloride 0.9% 20 ML ONE (16:39)
[2017-09-07] MEDS ORDERED: Norepinephrine 4 MG/4 ML SDV ONE (16:40)
[2017-09-07] MEDS ORDERED: DOPAMINE 400 MG/10 ML ONE (16:40)
[2017-09-07] MEDS ORDERED: fentaNYL 100 MCG/2 ML SDV ONE (17:25)
--- NOTE | 2017-09-07 17:25 | PCM.SN ---
- Free Text/Narrative Note: Called at 1630 for pt being hypotensive on the floor, still prior to scheduled surgery at 1800. Presumed sepsis/septicemia. BP 75 systolic. Pt alert and cooperative. A second IV line had been started prior to my arrival in the patients room. Both IV bags put to pressure bag infusors. Neosynephrine bolus of 200 mcg given iv. BP raised to 95 systolic. Levophed drip started. Total pre-op fluid bolus was approx 1000 ml. Pt stabelized after fluid bolus and pressor infusions. Transported to OR #4. Smooth iv induction without complication. See anesthesia record for intraoperative management.
[2017-09-07] MEDS ORDERED: Lactated Ringers 1,000 ML IV SCH ×2 (18:30→21:30)
[2017-09-07 18:39] LABS: CHLORIDE,CL 117 mmol/L (98-110); SODIUM,NA 140 mmol/L (136-146)
[2017-09-07] MEDS ORDERED: Ampicillin 2 GM in Sodium Chloride 0.9% 100 ML IV SCH (19:00)
--- NOTE | 2017-09-07 19:59 | PCM.HP ---
H&P History of Present Illness - History of Present Illness Initial Comments - Free Text/Narative: 72 yo male with pmh of chronic kidney disease, COPD, VANI, DM on insulin, who presented with two day history of back pain. He was discovered to have 5mm obstructing stone in the proximal left ureter with proximal left hydronephrosis. He was admitted by Dr. Ramires for stent placement and treatment of pyelonephritis. Patient did become hypotensive and was placed on dopamine drip. He was given one liter of fluid preop and one liter of fluid in the OR. He had [address]. He was given Rocephin, tobramycin and ciprofloxacin. Left Flank Pain Score (Numeric/FACES): 8 - Related Data Allergies/Adverse Reactions: Allergies Allergy/AdvReac Type Severity Reaction Status Date / Time metformin Allergy Body Aches Verified 10/13/16 11:08 simvastatin [From Zocor] Allergy Body Aches Verified 10/13/16 11:08 anesthesia Allergy Vomiting Uncoded 10/13/16 11:08 Home Medications: Home Meds Acetaminophen [Tylenol] 2 tab PO Q6H PRN 02/08/16 [History] Zolpidem Tartrate 5 mg PO BEDTIME PRN 02/08/16 [History] amLODIPine [Norvasc] 5 mg PO BEDTIME 02/08/16 [History] Albuterol [Proventil HFA] 6.7 gm INH Q6H PRN 10/13/16 [History] Doxazosin Mesylate [Cardura] 8 mg PO BEDTIME 10/13/16 [History] Ferrous Sulfate [Ferosul] 325 mg PO DAILY 10/13/16 [History] Finasteride 5 mg PO DAILY 10/13/16 [History] Fluticasone Propionate [Flonase] 1 spray NASBOTH BID 10/13/16 [History] Gabapentin [Neurontin] 100 mg PO BEDTIME 10/13/16 [History] Ipratropium [Atrovent] 0.5 mg NEB Q6HRRT 10/13/16 [History] Montelukast [Singulair] 10 mg PO DAILY 10/13/16 [History] Omeprazole 20 mg PO ASDIRECTED 10/13/16 [History] Rosuvastatin [Crestor] 10 mg PO BEDTIME 10/13/16 [History] Sertraline HCl 50 mg PO DAILY 10/13/16 [History] Tamsulosin [Flomax] 0.4 mg PO QPM 10/13/16 [History] Tiotropium [Spiriva HandiHaler] 18 mcg INH DAILY 10/13/16 [History] buPROPion HCl [Wellbutrin SR] 150 mg PO BEDTIME 10/13/16 [History] buPROPion HCl [Wellbutrin SR] 300 mg PO DAILY 10/13/16 [History] rOPINIRole HCl [Requip] 1 mg PO TID PRN 10/13/16 [History] Budesonide/Formoterol Fumarate [Symbicort 80-4.5 Mcg Inhaler] 2 inh IH BID 10/14 [History] Insulin NPH Human Isophane [Humulin N] 1 units SUBCUT BID 10/14/16 [History] Metoprolol Succinate [Toprol XL] 200 mg PO DAILY 10/14/16 [History] Past Medical History HEENT History: Reports: Cataract, Hard of Hearing Other HEENT History: has top denture, [employer] hearing aids Cardiovascular History: Reports: Aneurysm, Blood Clots/VTE/DVT, CAD, Heart Failure, Hypertension Respiratory History: Reports: Asthma, COPD Gastrointestinal History: Reports: GERD Genitourinary History: Reports: Acute Renal Failure, BPH Other Genitourinary History: ARF X 1 year ago Musculoskeletal History: Reports: Arthritis, Fracture Psychiatric History: Reports: Anxiety, Depression Endocrine/Metabolic History: Reports: Diabetes, Type II, Obesity/BMI 30+ Hematologic History: Reports: B12 Deficiency, Blood Transfusion(s) Immunologic History: Reports: None Oncologic (Cancer) History: Reports: None Dermatologic History: Reports: None - Past Surgical History Cardiovascular Surgical History: Reports: AAA Repair Other Cardiovascular Surgeries/Procedures: Stent placed GI Surgical History: Reports: Other (See Below) Other GI Surgeries/Procedures: Gastric bypass X 10 years ago Neurological Surgical History: Reports: Lumbar Spine Other Neurological Surgeries/Procedures: 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 Social & Family History - Family History Family Medical History: Noncontributory - Tobacco Use Smoking Status *Q: Former Smoker Years of Tobacco use: 40 Used Tobacco, but Quit: Yes Month Tobacco Last Used: 1997 - Caffeine Use Caffeine Use: Reports: Coffee, Soda, Tea - Alcohol Use Days Per Week of Alcohol Use: 0 - Recreational Drug Use Recreational Drug Use: No Exam - Vital Signs Vital Signs: Last Vital Signs Temp 38.6 C H 09/07/17 18:20 Pulse 74 09/07/17 19:30 Resp 18 09/07/17 19:30 BP 112/49 L 09/07/17 19:30 Pulse Ox 95 09/07/17 19:30 Weight: 103.2 kg - Patient Data Lab Results Last 24 hrs: Laboratory Results - last 24 hr 09/07/17 09/07/17 09/07/17 Range/Units 12:04 16:41 18:00 WBC (4.0-11.0) K/uL RBC (4.50-5.90) M/uL Hgb (13.0-17.0) g/dL Hct (38.0-50.0) % MCV (80.0-98.0) fL MCH (27.0-32.0) pg MCHC (31.0-37.0) g/dL RDW Std Deviation (28.0-62.0) fl RDW Coeff of Jaleesa (11.0-15.0) % Plt Count (150-400) K/uL MPV (7.40-12.00) fL Add Manual Diff Neutrophils % (Manual) (48.0-80.0) % Band Neutrophils % % Lymphocytes % (Manual) (16.0-40.0) % Monocytes % (Manual) (0.0-15.0) % Basophils % (Manual) (0.0-1.5) % Nucleated RBC % /100WBC Absolute Seg Neuts (1.4-5.7) Band Neutrophils # Lymphocytes # (Manual) (0.6-2.4) Monocytes # (Manual) (0.0-0.8) Basophils # (Manual) (0.0-0.1) Nucleated RBCs # K/uL Reactive Lymphocytes Lactate (0.20-2.00) mmol/L Sodium 140 (136-146) mmol/L Potassium 5.9 H (3.5-5.1) mmol/L Chloride 117 H (98-110) mmol/L Carbon Dioxide 15 L (21-31) mmol/L BUN 38 H (6.0-23.0) mg/dL Creatinine 2.5 H (0.6-1.5) mg/dL Est Cr Clr Drug Dosing 25.34 mL/min Estimated GFR (MDRD) 25.6 ml/min Glucose 187 H (60-110) mg/dL POC Glucose 142 H 145 H (60-110) mg/dL Calcium 7.6 L (8.8-10.8) mg/dL Troponin I < 0.10 (0.0-0.29) NG/ML 09/07/17 09/07/17 09/07/17 Range/Units 18:00 18:00 18:33 WBC 28.68 H (4.0-11.0) K/uL RBC 3.66 L (4.50-5.90) M/uL Hgb 11.2 L (13.0-17.0) g/dL Hct 34.7 L (38.0-50.0) % MCV 94.8 (80.0-98.0) fL MCH 30.6 (27.0-32.0) pg MCHC 32.3 (31.0-37.0) g/dL RDW Std Deviation 48.6 (28.0-62.0) fl RDW Coeff of Jaleesa 14 (11.0-15.0) % Plt Count 274 (150-400) K/uL MPV 9.40 (7.40-12.00) fL Add Manual Diff YES Neutrophils % (Manual) 76 (48.0-80.0) % Band Neutrophils % 13 % Lymphocytes % (Manual) 7 L (16.0-40.0) % Monocytes % (Manual) 3 (0.0-15.0) % Basophils % (Manual) 1 (0.0-1.5) % Nucleated RBC % 0.0 /100WBC Absolute Seg Neuts 21.8 H (1.4-5.7) Band Neutrophils # 3.7 Lymphocytes # (Manual) 2.0 (0.6-2.4) Monocytes # (Manual) 0.9 H (0.0-0.8) Basophils # (Manual) 0.3 H (0.0-0.1) Nucleated RBCs # 0 K/uL Reactive Lymphocytes FEW Lactate 1.1 (0.20-2.00) mmol/L Sodium (136-146) mmol/L Potassium (3.5-5.1) mmol/L Chloride (98-110) mmol/L Carbon Dioxide (21-31) mmol/L BUN (6.0-23.0) mg/dL Creatinine (0.6-1.5) mg/dL Est Cr Clr Drug Dosing mL/min Estimated GFR (MDRD) ml/min Glucose (60-110) mg/dL POC Glucose 169 H (60-110) mg/dL Calcium (8.8-10.8) mg/dL Troponin I (0.0-0.29) NG/ML Result Diagrams: 09/07/17 18:00 09/07/17 18:00 *Q Meaningful Use (ADM) - VTE *Q VTE Criteria *Q: - Stroke *Q Stroke Criteria *Q: - AMI *Q AMI Criteria *Q: Orders Last 24hrs: Active Orders 24 hr Category Date Time Status Antiembolic Devices [RC] PER UNIT ROUTINE Care 09/07/17 18:28 Active Blood Glucose Check, Bedside [RC] ONETIME Care 09/07/17 18:26 Active Insert Astudillo Catheter [Insert Urinary Catheter] [OM.PC] Care 09/07/17 18:45 Ordered Q24H POC Glucose [Blood Glucose Check, Bedside] [RC] Care 09/07/17 13:16 Active QIDACANDBED RT Incentive Spirometry [RC] Q2HWA Care 09/07/17 18:27 Active Up ad Kath [RC] ASDIRECTED Care 09/07/17 18:21 Active Urinary Catheter Assessment [RC] ASDIRECTED Care 09/07/17 18:46 Active NPO Now [Nothing per Oral Now Diet] [DIET] Diet 09/07/17 Lunch Active Fluoro Up To 1Hr [CR] Routine Exams 09/07/17 17:58 Ordered BLOOD GAS ARTERIAL [BG] Stat Lab 09/07/17 17:21 Ordered Cefepime [Maxipime in D5W 2 GM/50 ML] 2 gm Med 09/07/17 21:00 Ordered Premix Bag 1 bag IV Q12HR Ciprofloxacin in D5W [Cipro in D5W 400 MG/200 ML] 400 Med 09/07/17 13:30 Active mg Premix Bag 1 bag IV Q12H HYDROmorphone [Dilaudid] Med 09/07/17 13:12 Active 2 mg IVPUSH Q4H PRN Lactated Ringers [Ringers, Lactated] 1,000 ml Med 09/07/17 18:30 Active IV ASDIRECTED Ondansetron [Zofran] Med 09/07/17 13:14 Active 4 mg IVPUSH Q3H PRN Sodium Chloride 0.9% [Normal Saline] 500 ml Med 09/07/17 16:19 Active IV STAT Tobramycin [Nebcin] 120 mg Med 09/07/17 18:30 Pending Sodium Chloride 0.9% [Normal Saline] 100 ml IV Q12H Sequential Compression Device [OM.PC] Routine Oth 09/07/17 18:27 Ordered Resuscitation Status Routine Resus Stat 09/07/17 18:21 Ordered Medication Orders Hydromorphone HCl (Dilaudid) 2 mg IVPUSH Q4H PRN PRN Reason: Pain Last Admin: 09/07/17 13:35 Dose: 2 mg Ciprofloxacin/Dextrose 400 mg/ (Premix) 200 mls @ 200 mls/hr IV Q12H SAUNDRA Last Admin: 09/07/17 13:34 Dose: 200 mls/hr Sodium Chloride (Normal Saline) 500 mls @ 999 mls/hr IV STAT SAUNDRA Lactated Ringer's (Ringers, Lactated) 1,000 mls @ 200 mls/hr IV ASDIRECTED SAUNDRA Tobramycin 120 mg/ Sodium (Chloride) 103 mls @ 103 mls/hr IV Q12H SAUNDRA Cefepime HCl 2 gm/ Premix 50 mls @ 100 mls/hr IV Q12HR SAUNDRA Ondansetron HCl (Zofran) 4 mg IVPUSH Q3H PRN PRN Reason: Nausea Last Admin: 09/07/17 13:34 Dose: 4 mg Sodium Chloride (Saline Flush) 10 ml FLUSH ASDIRECTED PRN PRN Reason: Keep Vein Open Sodium Chloride (Saline Flush) 2.5 ml FLUSH ASDIRECTED PRN PRN Reason: Keep Vein Open
[2017-09-07] MEDS ORDERED: Insulin Aspart 100 Units/ML 3 ML Pen SUBCUT SCH (20:00)
--- NOTE | 2017-09-07 20:17 | PCM.CONS ---
H&P History of Present Illness - History of Present Illness Initial Comments - Free Text/Narative: 72 yo male with pmh of chronic kidney disease, COPD, VANI, DM on insulin, who presented with two day history of back pain. He was discovered to have 5mm obstructing stone in the proximal left ureter with proximal left hydronephrosis. He was admitted by Dr. Ramires for stent placement and treatment of pyelonephritis. Patient did become hypotensive and was placed on dopamine drip. He was given one liter of fluid preop and one liter of fluid in the OR. He had [address] J-[address]. He was given Rocephin, tobramycin and ciprofloxacin. Left Flank Pain Score (Numeric/FACES): 8 Lower Back Pain Score (Numeric/FACES): 3 - Related Data Allergies/Adverse Reactions: Allergies Allergy/AdvReac Type Severity Reaction Status Date / Time metformin Allergy Body Aches Verified 10/13/16 11:08 simvastatin [From Zocor] Allergy Body Aches Verified 10/13/16 11:08 anesthesia Allergy Vomiting Uncoded 10/13/16 11:08 Home Medications: Home Meds Acetaminophen [Tylenol] 2 tab PO Q4H PRN 02/08/16 [History] Zolpidem Tartrate 5 mg PO BEDTIME PRN 02/08/16 [History] amLODIPine [Norvasc] 5 mg PO DAILY 02/08/16 [History] Albuterol [Proventil HFA] 6.7 gm INH TID PRN 10/13/16 [History] Doxazosin Mesylate [Cardura] 8 mg PO BEDTIME 10/13/16 [History] Ferrous Sulfate [Ferosul] 325 mg PO DAILY 10/13/16 [History] Finasteride 5 mg PO DAILY 10/13/16 [History] Fluticasone Propionate [Flonase] 1 spray NASBOTH BID 10/13/16 [History] Gabapentin [Neurontin] 100 mg PO BEDTIME 10/13/16 [History] Ipratropium [Atrovent] 0.5 mg NEB Q6HRRT 10/13/16 [History] Montelukast [Singulair] 10 mg PO BEDTIME 10/13/16 [History] Omeprazole 20 mg PO DAILY 10/13/16 [History] Sertraline HCl 50 mg PO DAILY 10/13/16 [History] Tiotropium [Spiriva HandiHaler] 18 mcg INH DAILY 10/13/16 [History] buPROPion HCl [Wellbutrin SR] 150 mg PO BEDTIME 10/13/16 [History] buPROPion HCl [Wellbutrin SR] 300 mg PO DAILY 10/13/16 [History] rOPINIRole HCl [Requip] 1 mg PO TID PRN 10/13/16 [History] Metoprolol Succinate [Toprol XL] 200 mg PO DAILY 10/14/16 [History] Bisacodyl [Dulcolax] 10 mg PO BEDTIME 09/08/17 [History] Budesonide/Formoterol Fumarate [Symbicort 160-4.5 Mcg Inhaler] 2 puff INH BID [History] Calcium Carbonate [Calcium Antacid] 860 mg PO BID 09/08/17 [History] Cetirizine [ZyrTEC] 10 mg PO DAILY 09/08/17 [History] Cholecalciferol (Vitamin D3) [Vitamin D3] 1,000 unit PO DAILY 09/08/17 [History] Cyanocobalamin (Vitamin B-12) [Vitamin B-12] 1 ml IM Q30D 09/08/17 [History] Folic Acid 0.5 mg PO QAM 09/08/17 [History] Furosemide 20 mg PO DAILY 09/08/17 [History] Insulin Isophane NPH, Human [NovoLIN N] 6 - 8 units SUBCUT QPM 09/08/17 [History ] Insulin Isophane NPH, Human [NovoLIN N] 10 - 14 units SUBCUT QAM 09/08/17 [ History] Magnesium Oxide 400 mg PO BID 09/08/17 [History] [place]-3/DHA/Epa/Fish Oil [Fish Oil 500 MG Softgel] 500 mg PO DAILY 09/08/17 [ History] Sodium Bicarbonate 1,300 mg PO BID 09/08/17 [History] Past Medical History HEENT History: Reports: Cataract, Hard of Hearing Other HEENT History: has top denture, [employer] hearing aids Cardiovascular History: Reports: Aneurysm, Blood Clots/VTE/DVT, CAD, Heart Failure, Hypertension Respiratory History: Reports: Asthma, COPD Gastrointestinal History: Reports: GERD Genitourinary History: Reports: Acute Renal Failure, BPH Other Genitourinary History: ARF X 1 year ago Musculoskeletal History: Reports: Arthritis, Fracture Psychiatric History: Reports: Anxiety, Depression Endocrine/Metabolic History: Reports: Diabetes, Type II, Obesity/BMI 30+ Hematologic History: Reports: B12 Deficiency, Blood Transfusion(s) Immunologic History: Reports: None Oncologic (Cancer) History: Reports: None Dermatologic History: Reports: None - Past Surgical History Cardiovascular Surgical History: Reports: AAA Repair Other Cardiovascular Surgeries/Procedures: Stent placed GI Surgical History: Reports: Other (See Below) Other GI Surgeries/Procedures: Gastric bypass X 10 years ago Neurological Surgical History: Reports: Lumbar Spine Other Neurological Surgeries/Procedures: 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 Social & Family History - Family History Family Medical History: Noncontributory - Tobacco Use Smoking Status *Q: Former Smoker Years of Tobacco use: 40 Used Tobacco, but Quit: Yes Month Tobacco Last Used: 1997 - Caffeine Use Caffeine Use: Reports: Coffee, Soda, Tea - Alcohol Use Days Per Week of Alcohol Use: 0 - Recreational Drug Use Recreational Drug Use: No H&P Review of Systems - Review of Systems: Review Of Systems: ROS reveals no pertinent complaints other than HPI. Exam - Exam Exam: See Below - Vital Signs Vital Signs: Last Vital Signs Temp 38.6 C H 09/07/17 18:20 Pulse 74 09/07/17 19:30 Resp 18 09/07/17 19:30 BP 112/49 L 09/07/17 19:30 Pulse Ox 95 09/07/17 19:30 Weight: 103.2 kg - Exam General: Alert, Oriented HEENT: Mucosa Moist & [place], Abnormal Pupils Lungs: Clear to Auscultation, Normal Respiratory Effort Cardiovascular: Regular Rate, Regular Rhythm GI/Abdominal Exam: Soft, Non-Tender, No Distention Extremities: Normal Inspection Skin: Warm, Dry, Intact - Patient Data Lab Results Last 24 hrs: Laboratory Results - last 24 hr 09/07/17 09/07/17 09/07/17 Range/Units 12:04 16:41 18:00 WBC (4.0-11.0) K/uL RBC (4.50-5.90) M/uL Hgb (13.0-17.0) g/dL Hct (38.0-50.0) % MCV (80.0-98.0) fL MCH (27.0-32.0) pg MCHC (31.0-37.0) g/dL RDW Std Deviation (28.0-62.0) fl RDW Coeff of Jaleesa (11.0-15.0) % Plt Count (150-400) K/uL MPV (7.40-12.00) fL Add Manual Diff Neutrophils % (Manual) (48.0-80.0) % Band Neutrophils % % Lymphocytes % (Manual) (16.0-40.0) % Monocytes % (Manual) (0.0-15.0) % Basophils % (Manual) (0.0-1.5) % Nucleated RBC % /100WBC Absolute Seg Neuts (1.4-5.7) Band Neutrophils # Lymphocytes # (Manual) (0.6-2.4) Monocytes # (Manual) (0.0-0.8) Basophils # (Manual) (0.0-0.1) Nucleated RBCs # K/uL Reactive Lymphocytes Lactate (0.20-2.00) mmol/L Sodium 140 (136-146) mmol/L Potassium 5.9 H (3.5-5.1) mmol/L Chloride 117 H (98-110) mmol/L Carbon Dioxide 15 L (21-31) mmol/L BUN 38 H (6.0-23.0) mg/dL Creatinine 2.5 H (0.6-1.5) mg/dL Est Cr Clr Drug Dosing 25.34 mL/min Estimated GFR (MDRD) 25.6 ml/min Glucose 187 H (60-110) mg/dL POC Glucose 142 H 145 H (60-110) mg/dL Calcium 7.6 L (8.8-10.8) mg/dL Troponin I < 0.10 (0.0-0.29) NG/ML 09/07/17 09/07/17 09/07/17 Range/Units 18:00 18:00 18:33 WBC 28.68 H (4.0-11.0) K/uL RBC 3.66 L (4.50-5.90) M/uL Hgb 11.2 L (13.0-17.0) g/dL Hct 34.7 L (38.0-50.0) % MCV 94.8 (80.0-98.0) fL MCH 30.6 (27.0-32.0) pg MCHC 32.3 (31.0-37.0) g/dL RDW Std Deviation 48.6 (28.0-62.0) fl RDW Coeff of Jaleesa 14 (11.0-15.0) % Plt Count 274 (150-400) K/uL MPV 9.40 (7.40-12.00) fL Add Manual Diff YES Neutrophils % (Manual) 76 (48.0-80.0) % Band Neutrophils % 13 % Lymphocytes % (Manual) 7 L (16.0-40.0) % Monocytes % (Manual) 3 (0.0-15.0) % Basophils % (Manual) 1 (0.0-1.5) % Nucleated RBC % 0.0 /100WBC Absolute Seg Neuts 21.8 H (1.4-5.7) Band Neutrophils # 3.7 Lymphocytes # (Manual) 2.0 (0.6-2.4) Monocytes # (Manual) 0.9 H (0.0-0.8) Basophils # (Manual) 0.3 H (0.0-0.1) Nucleated RBCs # 0 K/uL Reactive Lymphocytes FEW Lactate 1.1 (0.20-2.00) mmol/L Sodium (136-146) mmol/L Potassium (3.5-5.1) mmol/L Chloride (98-110) mmol/L Carbon Dioxide (21-31) mmol/L BUN (6.0-23.0) mg/dL Creatinine (0.6-1.5) mg/dL Est Cr Clr Drug Dosing mL/min Estimated GFR (MDRD) ml/min Glucose (60-110) mg/dL POC Glucose 169 H (60-110) mg/dL Calcium (8.8-10.8) mg/dL Troponin I (0.0-0.29) NG/ML Result Diagrams: 09/08/17 03:51 09/08/17 17:16 Consult PN Assessment/Plan Procedures: Procedures AIRWAY INHALATION TREATMENT (10/13/16) ALANINE AMINO (ALT) (SGPT) (12/12/14) ANTINUCLEAR ANTIBODIES (12/25/16) ASSAY NEPHELOMETRY NOT SPEC (12/25/16) ASSAY OF BLOOD/URIC ACID (12/25/16) ASSAY OF CALCIUM (07/30/17) ASSAY OF CREATININE (03/04/16) ASSAY OF FERRITIN (12/25/16) ASSAY OF MAGNESIUM (01/09/17) ASSAY OF PARATHORMONE (07/30/17) ASSAY OF PROTEIN URINE (12/25/16) ASSAY OF PSA TOTAL (06/20/15) ASSAY OF TROPONIN QUANT (10/13/16) ASSAY OF URINE CREATININE (12/25/16) CHEST X-RAY 1 VIEW FRONTAL (10/13/16) COMPLEMENT ANTIGEN (12/25/16) COMPLETE CBC AUTOMATED (07/30/17) COMPLETE CBC W/AUTO DIFF WBC (12/25/16) COMPREHEN METABOLIC PANEL (10/13/16) CRITICAL CARE ADDL 30 MIN (09/28/16) CRITICAL CARE FIRST HOUR (09/28/16) ELECTROCARDIOGRAM TRACING (10/13/16) EMERGENCY DEPT VISIT (10/13/16) EMERGENCY DEPT VISIT (05/02/14) EVALUATE PT USE OF INHALER (10/13/16) EXTREMITY STUDY (10/13/16) FLUORESCENT ANTIBODY TITER (12/25/16) GLYCOSYLATED HEMOGLOBIN TEST (06/17/17) HELICOBACTER PYLORI ANTIBODY (04/16/15) HEMATOCRIT (10/13/16) HEMOGLOBIN (10/13/16) HYDRATE IV INFUSION ADD-ON (10/13/16) IMMUNFIX E-PHORSIS/URINE/CSF (12/25/16) IMMUNOASSAY NONANTIBODY (12/25/16) IMMUNOFIX E-PHORESIS SERUM (12/25/16) INSERT EMERGENCY AIRWAY (09/28/16) IRON BINDING TEST (12/25/16) LIPID PANEL (06/13/16) MEDICAL NUTRITION INDIV IN (10/13/16) METABOLIC PANEL TOTAL CA (06/17/17) MICROALBUMIN SEMIQUANT (06/17/17) OFFICE/OUTPATIENT VISIT EST (04/13/17) OFFICE/OUTPATIENT VISIT EST (02/13/16) OFFICE/OUTPATIENT VISIT EST (12/12/14) PPSV23 VACC 2 YRS+ SUBQ/IM (12/12/14) PROTEIN E-PHORESIS SERUM (12/25/16) PROTHROMBIN TIME (11/18/16) PT EVALUATION (10/13/16) RBC SED RATE AUTOMATED (09/21/15) RENAL FUNCTION PANEL (07/30/17) ROUTINE VENIPUNCTURE (07/30/17) THER/PROPH/DIAG INJ IV PUSH (10/13/16) THER/PROPH/DIAG IV INF INIT (09/28/16) THROMBOPLASTIN TIME PARTIAL (10/13/16) TX/PRO/DX INJ NEW DRUG ADDON (09/28/16) URINALYSIS AUTO W/SCOPE (06/17/17) US EXAM ABDO BACK WALL COMP (12/10/16) VASCULAR STUDY (12/10/16) VIT D 1 25-DIHYDROXY (07/30/17) VITAMIN D 25 HYDROXY (12/25/16) X-RAY EXAM OF ELBOW (05/02/14) X-RAY EXAM OF SHOULDER (05/02/14) Problem List Initiated/Reviewed/Updated: Yes My Orders Last 24 Hours: My Active Orders 09/07/17 21:00 Cefepime [Maxipime in D5W 2 GM/50 ML] 2 gm Premix Bag 1 bag IV Q12HR Plan: 72 yo male with septic shock, pyelonephritis with obstructive stone, and gram negative brittany bacteremia. Septic shock: on dopamine drip, Patient has history of CHF so will monitor for pulmonary edema while resuscitating. I spoke with Dr. Ramires regarding my recommendation for a-line and central line due to the use of vassopressors. Pyelonphritis/bacteremia: treating with broad spectrum antibiotics DM: on sliding scale insulin
--- NOTE | 2017-09-07 20:45 | PCM.POSTAN ---
POST ANESTHESIA ASSESSMENT - MENTAL STATUS Mental Status: Alert, Oriented - VITAL SIGNS Pulse Rate: 80 SaO2: 98 Resp Rate: 22 Blood Pressure: 94/56 (dopamine 10mcg/kg/min) - RESPIRATORY Respiratory Status: Respiratory Rate WNL, Airway Patent, O2 Saturation Stable - CARDIOVASCULAR CV Status: Pulse Rate WNL, Blood Pressure Stable - GASTROINTESTINAL GI Status: No Symptoms - POST OP HYDRATION Hydration Status: Adequate & Stable
[2017-09-07] MEDS ORDERED: Cefepime 2 GM in Premix Bag 1 BAG IV SCH (21:00)
[2017-09-07] MEDS ORDERED: Norepinephrine 4 MG in Dextrose 5% in Water 246 ML IV SCH ×2 (21:30)
[2017-09-07] MEDS: HYDROmorphone 1 MG/ML Syringe IVPUSH PRN (21:37)
[2017-09-07] MEDS: Albuterol/Ipratropium 3.0-0.5 MG/3 ML Neb Soln NEB PRN (22:01)
--- NOTE | 2017-09-07 22:18 | PCM.SN ---
- Free Text/Narrative Note: Procedure Note I was asked by Dr Pham for arterial line placement. Pt is immediately post-op from ureteroscopy and stent placement for suspected urosepsis. The patient is currently requiring vasoactive support. Pt is alert and oriented. Procedure was explained as well as the risks and benefits of arterial line placement. At this time the patient consents and wishes to proceed. Rt radial artery was palpated. Wrist was positioned using an arm board. Rt wrist was prepped with betadine and draped in sterile fashion. 1% Lidocaine was the infiltrated for analgesia. 20g Arrow catheter was then introduced into the Rt Radial artery, guide wire advanced without difficulty and catheter slide into place without difficulty as well. Catheter was then transduced and shows good arterial waveform. Catheter was secured with tegaderm and tape. Arterial line and NIBP are correlating well at time of placement. Pt tolerated procedure well. 5mL of arterial blood was also obtained for scheduled lab studies at time of placement.
--- NOTE | 2017-09-07 22:40 | HP ---
DATE OF : 1945 PRIMARY CARE PHYSICIAN: Juan Daniel Christianson M.D. HISTORY OF PRESENT ILLNESS: He was seen in the emergency room this morning at about 10:00 a.m. with sudden onset of left flank pain. He had a UA that was strongly suggestive of UTI. He had a CT scan that showed a 5 mm left mid ureteral stone with perinephric stranding. He was seen after he was admitted. PHYSICAL EXAMINATION: GENERAL: He is alert and oriented. VITAL SIGNS: Normal. HEART: Shows normal sinus rhythm. LUNGS: Clear with reduced breath sounds. Medical history is quite significant for having had urinary sepsis in September of last year. He was sent to [facility] with a creatinine of 13 and a potassium of 8. He recovered from that. Upon arrival today, his serum creatinine is 1.9 and his white blood count of 16,000. He was given 1 g of Rocephin in the ER, and I gave him 400 mg of Cipro IV. He is diabetic, hypertensive, and insulin dependent. PLAN: Cystoscopy, double-J stent placement, and treat the stone later. BRANDON / TOPHER /[id number]
--- NOTE | 2017-09-07 22:47 | OR ---
SURGEON: Nadja Ramires M.D. DATE OF PROCEDURE: 09/07/2017 PREOPERATIVE DIAGNOSES: 1. Urinary sepsis. 2. Left obstructed kidney. 3. Left mid ureteral stone. POSTOPERATIVE DIAGNOSES: 1. Urinary sepsis. 2. Left obstructed kidney. 3. Left mid ureteral stone. PROCEDURE: 1. Cystoscopy. 2. Double-J stent placement. Note, the patient ended up with two double-J stents on the left side, explanation down below. PROCEDURE IN DETAIL: The patient was given adequate sedation. He was placed in dorsal lithotomy position, prepped and draped with sterile drapes. Cystourethroscopy was done that was unremarkable. The left ureter was cannulated with a laser guide with the angle. Because of continued motion of the patient, it was not possible to get a glidewire in. Once the laser guide was in, a 6-Scottish 26 cm double-J stent was placed over that. The very lower end of the stent, however, even though it was released in the bladder, had retracted and was now in the left ureter. To ensure proper drainage, various attempts at gaining access into the lower ureter failed even after the lower ureter was dilated using the UroMax balloon dilator. I decided to put another laser guide over which another 6- [place] 26 cm double-J stent was placed, so he now has 2 stents, the first one is close from the renal pelvis down to the lower ureter and the second one goes from left UPJ with a big coil in the bladder. He should have more than adequate drainage with that. The plan now is to treat his urinary sepsis. BRANDON / TOPHER /[id number]
[2017-09-07] MEDS ORDERED: Sodium Bicarbonate 8.4% 50 MEQ/50 ML Syringe IVPUSH ONE (22:55)
[2017-09-07] MEDS: Heparin Sodium 5,000 Units/ML Vial SUBCUT SCH (23:25)
[2017-09-07] MEDS: Sodium Chloride 0.45% 1,000 ML IV SCH (23:26)
--- NOTE | 2017-09-08 00:39 | PCM.SN ---
- Free Text/Narrative Note: I was notified by nursing at 1628 of patients sudden deterioration. I was unable to promptly assist with immediate care as I was still in the OR with another case. I did notify Dr Fay who arrived and assisted with urgent care ( See Dr Fays note). When I did arrive to room 204 on med-surg, I found Dr Fay administering fluid boluses and giving phenylphrine doses IV push. I was able to obtain dopamine readily and promptly started it at 5mcg/kg/min, the patient did stabilize long enough for Dr Fay and myself to take the patient back to the OR for further intervention and induction. Please see anesthesia record for all further documentation regarding this case.
--- NOTE | 2017-09-08 00:53 | OR ---
SURGEON: WALDO GOMES MD DATE OF PROCEDURE: 09/07/2017 PREOPERATIVE DIAGNOSIS: Urosepsis. POSTOPERATIVE DIAGNOSIS: Urosepsis. PROCEDURE PERFORMED: Right internal jugular central line placement. ANESTHESIA: Local. ESTIMATED BLOOD LOSS: 10 mL. COMPLICATIONS: None. INDICATIONS: The patient is a 72-year-old male in the ICU with urosepsis. I was consulted by the hospitalist for central line placement. The patient's platelet count and INR are within normal limits. He has a history of a subclavian temporary dialysis catheter on the right side. The patient and I discussed the procedure as well as expected perioperative course. We discussed the risks, including bleeding, infection, or damage to surrounding structures, including hemothorax or pneumothorax. The patient verbalized understanding and wishes to proceed. PROCEDURE IN DETAIL: The patient was met in his ICU bed. A time-out was completed verifying his name, age, date of , allergies, and procedure to be performed. The bed was placed in a Trendelenburg position. An ultrasound was used to identify the right internal jugular vein and right carotid artery. The patient was then prepped and draped in usual sterile fashion. A sterile ultrasound was then brought into the field to reidentify the vascular anatomy of the right lower neck. A 4 mL of 1% lidocaine plain was then injected under the skin overlying these vessels to provide anesthesia. We placed a guide needle into the right internal jugular vein under direct ultrasound guidance. A brisk return of venous blood was obtained. A guidewire was placed down the needle into the vein. I was unable to pass the guidewire without resistance. The guidewire was then pulled out and a second puncture was attempted. This was met with resistance again. I decided to use the straight end of the guidewire for a third and final attempt. Using ultrasound guidance, I regained access into the right internal jugular vein and using the straight end instead of the J-wire end, I was able to finally pass the wire with no resistance. An 11 blade was used to make an incision in the skin overlying the guidewire. A dilator was used to dilate the venous tract, a 7-Ivorian three lumen 20 cm catheter over the guidewire. The guidewire was removed and venous blood was aspirated from all three ports. The catheter was secured at 17 cm at the skin. The catheter was secured to the skin with interrupted 3-0 Vicryl sutures. Sterile dressings were applied. Post placement CXR showed good positioning of the catheter and no complications. The patient tolerated the procedure well with no acute complications. CLARK OBANDO /[id number] MTDD
[2017-09-08] MEDS ORDERED: Sodium Chloride 0.9% 250 ML IV SCH (01:45)
[2017-09-08] MEDS: Albuterol/Ipratropium 3.0-0.5 MG/3 ML Neb Soln NEB PRN ×2 (02:44→12:43)
[2017-09-08] MEDS: Insulin Aspart 100 Units/ML 3 ML Pen SUBCUT SCH ×6 (02:47→22:01)
[2017-09-08] MEDS: HYDROmorphone 1 MG/ML Syringe IVPUSH PRN ×5 (04:43→23:16)
[2017-09-08] MEDS: Heparin Sodium 5,000 Units/ML Vial SUBCUT SCH ×3 (05:56→21:59)
[2017-09-08] MEDS: Sodium Chloride 0.45% 1,000 ML IV SCH ×2 (08:54→17:00)
--- NOTE | 2017-09-08 09:06 | PCM48HPAN ---
Post Anesthesia Note - EVALUATION WITHIN 48HRS OF ANESTHETIC Vital Signs in Normal Range: Yes (On Levophed drip. Currently decreased.) Patient Participated in Evaluation: Yes Respiratory Function Stable: Yes (NC 4L ) Airway Patent: Yes Cardiovascular Function Stable: Yes Hydration Status Stable: Yes (NPO but asking for fluids) Pain Control Satisfactory: Yes (States better than yesterday) Nausea and Vomiting Control Satisfactory: Yes Mental Status Recovered: Yes (Alert, oriented. Wants to get up and walk)
[2017-09-08] MEDS: Pantoprazole 40 MG in Sodium Chloride 0.9% 10 ML IVPUSH SCH (09:09)
--- NOTE | 2017-09-08 10:54 | PCM.PN ---
- General Info Date of Service: 09/08/17 Subjective Update: 72M with history of CKD, currently in the ICU secondary to UTI sepsis secondary to nephrolithiasis s/p stent placement. Patient is currently on levophed drip, tobramycin/cefepime for antibiotic coverage. He had an episode of hyperkalemia last night requiring bicarbonate. Potassium level normal this morning. Patient complains of persistent back pain but has no new issues. Denies fevers/chills/ nausea/vomiting/pain elsewhere. - Review of Systems General: Reports: Other (see HPI) - Patient Data Vitals - Most Recent: Last Vital Signs Temp 37.7 C 09/08/17 08:00 Pulse 80 09/07/17 20:45 Resp 22 H 09/08/17 08:00 BP 119/50 L 09/08/17 08:00 Pulse Ox 93 L 09/08/17 08:00 Weight - Most Recent: 110.5 kg I&O - Last 24 Hours: Intake & Output 09/07/17 09/08/17 09/08/17 22:59 06:59 14:59 Intake Total 1150 337 Output Total 0 200 Balance 1150 137 Lab Results Last 24 Hours: Laboratory Results - last 24 hr 09/07/17 09/07/17 09/07/17 Range/Units 12:04 16:41 18:00 WBC (4.0-11.0) K/uL RBC (4.50-5.90) M/uL Hgb (13.0-17.0) g/dL Hct (38.0-50.0) % MCV (80.0-98.0) fL MCH (27.0-32.0) pg MCHC (31.0-37.0) g/dL RDW Std Deviation (28.0-62.0) fl RDW Coeff of Jaleesa (11.0-15.0) % Plt Count (150-400) K/uL MPV (7.40-12.00) fL Add Manual Diff Neutrophils % (Manual) (48.0-80.0) % Band Neutrophils % % Lymphocytes % (Manual) (16.0-40.0) % Monocytes % (Manual) (0.0-15.0) % Basophils % (Manual) (0.0-1.5) % Nucleated RBC % /100WBC Absolute Seg Neuts (1.4-5.7) Band Neutrophils # Lymphocytes # (Manual) (0.6-2.4) Monocytes # (Manual) (0.0-0.8) Basophils # (Manual) (0.0-0.1) Nucleated RBCs # K/uL Reactive Lymphocytes Lactate (0.20-2.00) mmol/L Sodium 140 (136-146) mmol/L Potassium 5.9 H (3.5-5.1) mmol/L Chloride 117 H (98-110) mmol/L Carbon Dioxide 15 L (21-31) mmol/L BUN 38 H (6.0-23.0) mg/dL Creatinine 2.5 H (0.6-1.5) mg/dL Est Cr Clr Drug Dosing 25.34 mL/min Estimated GFR (MDRD) 25.6 ml/min Glucose 187 H (60-110) mg/dL POC Glucose 142 H 145 H (60-110) mg/dL Calcium 7.6 L (8.8-10.8) mg/dL Troponin I < 0.10 (0.0-0.29) NG/ML 09/07/17 09/07/17 09/07/17 Range/Units 18:00 18:00 18:33 WBC 28.68 H (4.0-11.0) K/uL RBC 3.66 L (4.50-5.90) M/uL Hgb 11.2 L (13.0-17.0) g/dL Hct 34.7 L (38.0-50.0) % MCV 94.8 (80.0-98.0) fL MCH 30.6 (27.0-32.0) pg MCHC 32.3 (31.0-37.0) g/dL RDW Std Deviation 48.6 (28.0-62.0) fl RDW Coeff of Jaleesa 14 (11.0-15.0) % Plt Count 274 (150-400) K/uL MPV 9.40 (7.40-12.00) fL Add Manual Diff YES Neutrophils % (Manual) 76 (48.0-80.0) % Band Neutrophils % 13 % Lymphocytes % (Manual) 7 L (16.0-40.0) % Monocytes % (Manual) 3 (0.0-15.0) % Basophils % (Manual) 1 (0.0-1.5) % Nucleated RBC % 0.0 /100WBC Absolute Seg Neuts 21.8 H (1.4-5.7) Band Neutrophils # 3.7 Lymphocytes # (Manual) 2.0 (0.6-2.4) Monocytes # (Manual) 0.9 H (0.0-0.8) Basophils # (Manual) 0.3 H (0.0-0.1) Nucleated RBCs # 0 K/uL Reactive Lymphocytes FEW Lactate 1.1 (0.20-2.00) mmol/L Sodium (136-146) mmol/L Potassium (3.5-5.1) mmol/L Chloride (98-110) mmol/L Carbon Dioxide (21-31) mmol/L BUN (6.0-23.0) mg/dL Creatinine (0.6-1.5) mg/dL Est Cr Clr Drug Dosing mL/min Estimated GFR (MDRD) ml/min Glucose (60-110) mg/dL POC Glucose 169 H (60-110) mg/dL Calcium (8.8-10.8) mg/dL Troponin I (0.0-0.29) NG/ML 09/07/17 09/07/17 09/08/17 Range/Units 21:00 21:58 02:43 WBC (4.0-11.0) K/uL RBC (4.50-5.90) M/uL Hgb (13.0-17.0) g/dL Hct (38.0-50.0) % MCV (80.0-98.0) fL MCH (27.0-32.0) pg MCHC (31.0-37.0) g/dL RDW Std Deviation (28.0-62.0) fl RDW Coeff of Jaleesa (11.0-15.0) % Plt Count (150-400) K/uL MPV (7.40-12.00) fL Add Manual Diff Neutrophils % (Manual) (48.0-80.0) % Band Neutrophils % % Lymphocytes % (Manual) (16.0-40.0) % Monocytes % (Manual) (0.0-15.0) % Basophils % (Manual) (0.0-1.5) % Nucleated RBC % /100WBC Absolute Seg Neuts (1.4-5.7) Band Neutrophils # Lymphocytes # (Manual) (0.6-2.4) Monocytes # (Manual) (0.0-0.8) Basophils # (Manual) (0.0-0.1) Nucleated RBCs # K/uL Reactive Lymphocytes Lactate (0.20-2.00) mmol/L Sodium 138 (136-146) mmol/L Potassium 6.1 H (3.5-5.1) mmol/L Chloride 116 H (98-110) mmol/L Carbon Dioxide 14 L (21-31) mmol/L BUN 42 H (6.0-23.0) mg/dL Creatinine 3.0 H (0.6-1.5) mg/dL Est Cr Clr Drug Dosing 21.12 mL/min Estimated GFR (MDRD) 20.7 ml/min Glucose 248 H (60-110) mg/dL POC Glucose 217 H 162 H (60-110) mg/dL Calcium 7.9 L (8.8-10.8) mg/dL Troponin I (0.0-0.29) NG/ML 09/08/17 09/08/17 09/08/17 Range/Units 03:51 03:51 05:54 WBC 21.63 H (4.0-11.0) K/uL RBC 3.33 L (4.50-5.90) M/uL Hgb 10.0 L (13.0-17.0) g/dL Hct 31.5 L (38.0-50.0) % MCV 94.6 (80.0-98.0) fL MCH 30.0 (27.0-32.0) pg MCHC 31.7 (31.0-37.0) g/dL RDW Std Deviation 48.4 (28.0-62.0) fl RDW Coeff of Jaleesa 14 (11.0-15.0) % Plt Count 251 (150-400) K/uL MPV 9.20 (7.40-12.00) fL Add Manual Diff Neutrophils % (Manual) (48.0-80.0) % Band Neutrophils % % Lymphocytes % (Manual) (16.0-40.0) % Monocytes % (Manual) (0.0-15.0) % Basophils % (Manual) (0.0-1.5) % Nucleated RBC % 0.0 /100WBC Absolute Seg Neuts (1.4-5.7) Band Neutrophils # Lymphocytes # (Manual) (0.6-2.4) Monocytes # (Manual) (0.0-0.8) Basophils # (Manual) (0.0-0.1) Nucleated RBCs # 0 K/uL Reactive Lymphocytes Lactate (0.20-2.00) mmol/L Sodium 139 (136-146) mmol/L Potassium 4.9 (3.5-5.1) mmol/L Chloride 117 H (98-110) mmol/L Carbon Dioxide 14 L (21-31) mmol/L BUN 44 H (6.0-23.0) mg/dL Creatinine 3.1 H (0.6-1.5) mg/dL Est Cr Clr Drug Dosing 20.43 mL/min Estimated GFR (MDRD) 20.0 ml/min Glucose 179 H (60-110) mg/dL POC Glucose 146 H (60-110) mg/dL Calcium 7.5 L (8.8-10.8) mg/dL Troponin I (0.0-0.29) NG/ML 09/08/17 Range/Units 10:38 WBC (4.0-11.0) K/uL RBC (4.50-5.90) M/uL Hgb (13.0-17.0) g/dL Hct (38.0-50.0) % MCV (80.0-98.0) fL MCH (27.0-32.0) pg MCHC (31.0-37.0) g/dL RDW Std Deviation (28.0-62.0) fl RDW Coeff of Jaleesa (11.0-15.0) % Plt Count (150-400) K/uL MPV (7.40-12.00) fL Add Manual Diff Neutrophils % (Manual) (48.0-80.0) % Band Neutrophils % % Lymphocytes % (Manual) (16.0-40.0) % Monocytes % (Manual) (0.0-15.0) % Basophils % (Manual) (0.0-1.5) % Nucleated RBC % /100WBC Absolute Seg Neuts (1.4-5.7) Band Neutrophils # Lymphocytes # (Manual) (0.6-2.4) Monocytes # (Manual) (0.0-0.8) Basophils # (Manual) (0.0-0.1) Nucleated RBCs # K/uL Reactive Lymphocytes Lactate (0.20-2.00) mmol/L Sodium (136-146) mmol/L Potassium (3.5-5.1) mmol/L Chloride (98-110) mmol/L Carbon Dioxide (21-31) mmol/L BUN (6.0-23.0) mg/dL Creatinine (0.6-1.5) mg/dL Est Cr Clr Drug Dosing mL/min Estimated GFR (MDRD) ml/min Glucose (60-110) mg/dL POC Glucose 145 H (60-110) mg/dL Calcium (8.8-10.8) mg/dL Troponin I (0.0-0.29) NG/ML Med Orders - Current: Current Medications Albuterol/Ipratropium (Duoneb 3.0-0.5 Mg/3 Ml) 3 ml NEB Q4HRRT PRN PRN Reason: Wheezing Last Admin: 09/08/17 02:44 Dose: 3 ml Heparin Sodium (Porcine) (Heparin Sodium) 5,000 units SUBCUT Q8H SAUNDRA Last Admin: 09/08/17 05:56 Dose: 5,000 units Hydromorphone HCl (Dilaudid) 1 mg IVPUSH Q4H PRN PRN Reason: Pain (severe 7-10) Last Admin: 09/08/17 09:04 Dose: 1 mg Sodium Chloride (Normal Saline) 500 mls @ 999 mls/hr IV STAT SAUNDRA Norepinephrine Bitartrate (Norepinephr-0.9% Nacl 4 Mg/250) 250 mls @ 7.5 mls/ hr IV TITRATE SAUNDRA; 2 MCG/MIN PRN Reason: Protocol Last Titration: 09/08/17 09:04 Dose: 8 mcg/min, 30 mls/hr Pantoprazole Sodium 40 mg/ (Sodium Chloride) 10 mls @ 300 mls/hr IVPUSH DAILY SAUNDRA Last Admin: 09/08/17 09:09 Dose: 300 mls/hr Sodium Chloride (Sodium Chloride 0.45%) 1,000 mls @ 125 mls/hr IV ASDIRECTED SAUNDRA Last Admin: 09/08/17 08:54 Dose: 125 mls/hr Sodium Chloride (Normal Saline) 250 mls @ 500 mls/hr IV ASDIRECTED SAUNDRA Last Admin: 09/08/17 01:50 Dose: 500 mls/hr Tobramycin 120 mg/ Sodium (Chloride) 103 mls @ 103 mls/hr IV Q24H SAUNDRA Cefepime HCl 2 gm/ Premix 50 mls @ 100 mls/hr IV Q24H SAUNDRA Insulin Aspart (Novolog) 0 unit SUBCUT Q4H SAUNDRA PRN Reason: Protocol Last Admin: 09/08/17 05:55 Dose: Not Given Ondansetron HCl (Zofran) 4 mg IVPUSH Q3H PRN PRN Reason: Nausea Last Admin: 09/07/17 13:34 Dose: 4 mg Sodium Chloride (Saline Flush) 10 ml FLUSH ASDIRECTED PRN PRN Reason: Keep Vein Open Sodium Chloride (Saline Flush) 2.5 ml FLUSH ASDIRECTED PRN PRN Reason: Keep Vein Open Discontinued Medications Dopamine HCl (Dopamine) 400 mg .ROUTE .STK-MED ONE Stop: 09/07/17 16:41 Ephedrine Sulfate (Ephedrine Sulfate) Confirm Administered Dose 50 mg .ROUTE .STK-MED ONE Stop: 09/07/17 16:40 Ephedrine Sulfate (Ephedrine Sulfate) Confirm Administered Dose 50 mg .ROUTE .STK-MED ONE Stop: 09/07/17 17:13 Etomidate (Amidate) Confirm Administered Dose 40 mg IVPUSH .STK-MED ONE Stop: 09/07/17 16:38 Fentanyl (Sublimaze) Confirm Administered Dose 100 mcg .ROUTE .STK-MED ONE Stop: 09/07/17 17:26 Hydromorphone HCl (Dilaudid) 2 mg IVPUSH Q4H PRN PRN Reason: Pain Last Admin: 09/07/17 13:35 Dose: 2 mg Ceftriaxone Sodium/Dextrose 1 (gm/ Premix) 50 mls @ 100 mls/hr IV ONETIME ONE Stop: 09/07/17 09:48 Last Admin: 09/07/17 09:25 Dose: 100 mls/hr Sodium Chloride (Normal Saline) 1,000 mls @ 125 mls/hr IV STAT SAUNDRA Last Admin: 09/07/17 11:40 Dose: 125 mls/hr Ciprofloxacin/Dextrose 400 mg/ (Premix) 200 mls @ 200 mls/hr IV Q12H [facility] Last Admin: 09/07/17 13:34 Dose: 200 mls/hr Sodium Chloride (Normal Saline) Confirm Administered Dose 20 mls @ as directed .ROUTE .STK-MED ONE Stop: 09/07/17 16:40 Tobramycin 120 mg/ Sodium (Chloride) 103 mls @ 206 mls/hr IV ONETIME ONE Stop: 09/07/17 17:59 Last Admin: 09/07/17 17:30 Dose: 206 mls/hr Ampicillin Sodium 2 gm/ Sodium (Chloride) 100 mls @ 200 mls/hr IV Q6H [facility] Last Admin: 09/07/17 20:14 Dose: Not Given Lactated Ringer's (Ringers, Lactated) 1,000 mls @ 200 mls/hr IV ASDIRECTED [facility] Last Admin: 09/07/17 20:00 Dose: 200 mls/hr Tobramycin 120 mg/ Sodium (Chloride) 103 mls @ 103 mls/hr IV Q12H SAUNDRA Cefepime HCl 2 gm/ Premix 50 mls @ 100 mls/hr IV Q12HR [facility] Last Admin: 09/07/17 20:09 Dose: 100 mls/hr Norepinephrine Bitartrate 4 mg (/ Dextrose/Water) 250 mls @ 7.5 mls/hr IV TITRATE SAUNDRA; 2 MCG/MIN PRN Reason: Protocol Lactated Ringer's (Ringers, Lactated) 1,000 mls @ 100 mls/hr IV ASDIRECTED [facility] Last Admin: 09/07/17 22:31 Dose: 100 mls/hr Insulin Aspart (Novolog) 0 unit SUBCUT Q6H [facility] PRN Reason: Protocol Last Admin: 09/07/17 21:53 Dose: 2 units Insulin Aspart (Novolog) 2 unit SUBCUT ONETIME ONE Stop: 09/07/17 23:01 Last Admin: 09/07/17 23:18 Dose: 2 units Iopamidol (Isovue-200 (41%)) Confirm Administered Dose 50 ml .ROUTE .STK-MED ONE Stop: 09/07/17 15:03 Lidocaine (Xylocaine-Mpf 2%) Confirm Administered Dose 5 ml .ROUTE .STK-MED ONE Stop: 09/07/17 16:38 Midazolam HCl (Versed 1 Mg/Ml) Confirm Administered Dose 2 mg .ROUTE .STK-MED ONE Stop: 09/07/17 16:39 Norepinephrine Bitartrate (Levophed) 4 mg .ROUTE .STK-MED ONE Stop: 09/07/17 16:41 Phenylephrine HCl (Phenylephrine In Ns 100 Mcg/Ml) Confirm Administered Dose 1 mg .ROUTE .STK-MED ONE Stop: 09/07/17 16:38 Phenylephrine HCl (Phenylephrine In Ns 100 Mcg/Ml) Confirm Administered Dose 1 mg .ROUTE .STK-MED ONE Stop: 09/07/17 17:13 Sodium Bicarbonate (Sodium Bicarbonate 8.4%) 50 meq IVPUSH ONETIME ONE Stop: 09/07/17 22:56 Last Admin: 09/07/17 23:25 Dose: 50 meq - Exam Quality Assessment: Supplemental Oxygen, Central Line/PICC, Urine Catheter, DVT Prophylaxis General: Alert, Oriented, Cooperative HEENT: Pupils Equal, Pupils Reactive Neck: Supple, No JVD Lungs: Clear to Auscultation, Normal Respiratory Effort Cardiovascular: Regular Rate, Regular Rhythm GI/Abdominal Exam: Normal Bowel Sounds, Soft, Non-Tender, No Organomegaly, No Distention Extremities: Normal Inspection, Normal Range of Motion, Non-Tender, No Pedal Edema, Normal Capillary Refill Wound/Incisions: Dressing Dry and Intact, No Drainage - Problem List Review Problem List Initiated/Reviewed/Updated: Yes - Assessment Assessment:: 1. UTI Sepsis s/p stent placement 2. Acute on chronic kidney injury. Pyelonephritis secondary to nephrolithiasis 3. Insulin dependent diabetes mellitus 4. Gram negative rods septicemia 5. Elevated creatinine 6. Hyperkalemia - improved 7. Leukocytosis 8. Hypoxia - Plan Plan:: 1. Antibiotic coverage with tobramycin, cefepime 2. Continue levophed drip 3. IV 1/2 NS at 125ml/hr 4. Heparin for DVT prophylaxis 5. Echocardiogram ordered 6. AM labs ordered 7. Currently NPO, will let urology decide on this if a change needs to be made.
--- NOTE | 2017-09-08 10:56 | CR ---
EXAMINATION: Ureteroscopy HISTORY: Surgery COMPARISON: CT dated 09/07/2017 TECHNIQUE: 3 fluoroscopic images provided FINDINGS/IMPRESSION: Operative control films demonstrate selection of the left ureter with placement of a nephroureteral stent.
--- NOTE | 2017-09-08 11:56 | CR ---
EXAM DATE: 09/07/17 PATIENT'S AGE: 72 Patient: CELSO ARCINIEGA Facility: [place], [place] Site . Site : 1945 Study: XRay Chest [id number] 9:50:58 PM Ordering Physician: Ike Saez Final Report: INDICATION: Check central line placement. TECHNIQUE: Chest radiograph 1 view COMPARISON: 09/07/2017. FINDINGS: Lung volumes are diminished. Right IJ central venous catheter, tip at the cavoatrial junction. No pleural effusion or pneumothorax. Moderate enlarged cardiac silhouette. Suture anchors project to the right humeral head, unchanged. IMPRESSION: 1. New cardiomegaly with right IJ central venous catheter, tip at the cavoatrial junction. Dictated by Kennedy Payne MD @ 09/07/2017 9:53:49 PM Dictated by: Kennedy Payne MD @ 09/07/2017 21:54:00 (Electronic Signature) Report Signed by Proxy. DARNELL
[2017-09-08] MEDS: Cefepime 2 GM in Premix Bag 1 BAG IV SCH (20:15)
[2017-09-09] MEDS: Sodium Chloride 0.45% 1,000 ML IV SCH ×2 (01:55→18:31)
[2017-09-09] MEDS: Insulin Aspart 100 Units/ML 3 ML Pen SUBCUT SCH ×6 (02:47→21:48)
[2017-09-09] MEDS: HYDROmorphone 1 MG/ML Syringe IVPUSH PRN ×2 (03:26→21:53)
[2017-09-09] MEDS: Heparin Sodium 5,000 Units/ML Vial SUBCUT SCH ×3 (06:10→21:56)
[2017-09-09] MEDS: Acetaminophen 325 MG Tab PO PRN (06:11)
[2017-09-09] MEDS ORDERED: Polyethylene Glycol 3350 Powder 17 GM Packet PO PRN (09:09)
[2017-09-09] MEDS: Pantoprazole 40 MG in Sodium Chloride 0.9% 10 ML IVPUSH SCH (09:50)
--- NOTE | 2017-09-09 12:24 | PCM.CONSN ---
- General Info Date of Service: 09/09/17 Subjective Update: 72-year-old male admitted for a gram-negative brittany urosepsis currently in ICU. Patient was weaned off of the levoped drip yesterday evening. Toxin patient this morning, he complains of left hip pain which is worsened by movement along with right toe/foot pain. He does tell me that he history has a history of gout. Denies any fevers, chills nausea or vomiting. He denies pain elsewhere. Denies any constipation or diarrhea. He has been able to output urine. - Review of Systems General: Reports: Other (See history of present illness) - Patient Data Vitals - Most Recent: Last Vital Signs Temp 37.8 C 09/09/17 04:00 Pulse 89 09/09/17 06:00 Resp 17 09/09/17 06:00 BP 118/53 L 09/09/17 06:00 Pulse Ox 98 09/09/17 06:27 Weight - Most Recent: 105.2 kg I&O - Last 24 Hours: Intake & Output 09/08/17 09/09/17 09/09/17 22:59 06:59 14:59 Intake Total 2019 999 Balance 2019 999 Lab Results Last 24 Hours: Laboratory Results - last 24 hr 09/08/17 09/08/17 09/08/17 Range/Units 14:16 17:16 17:17 WBC (4.0-11.0) K/uL RBC (4.50-5.90) M/uL Hgb (13.0-17.0) g/dL Hct (38.0-50.0) % MCV (80.0-98.0) fL MCH (27.0-32.0) pg MCHC (31.0-37.0) g/dL RDW Std Deviation (28.0-62.0) fl RDW Coeff of Jaleesa (11.0-15.0) % Plt Count (150-400) K/uL MPV (7.40-12.00) fL Neut % (Auto) (48.0-80.0) % Lymph % (Auto) (16.0-40.0) % [place] % (Auto) (0.0-15.0) % Eos % (Auto) (0.0-7.0) % Baso % (Auto) (0.0-1.5) % Neut # (Auto) (1.4-5.7) K/uL Lymph # (Auto) (0.6-2.4) K/uL [place] # (Auto) (0.0-0.8) K/uL Eos # (Auto) (0.0-0.7) K/uL Baso # (Auto) (0.0-0.1) K/uL Nucleated RBC % /100WBC Nucleated RBCs # K/uL Sodium 138 (136-146) mmol/L Potassium 4.8 (3.5-5.1) mmol/L Chloride 116 H (98-110) mmol/L Carbon Dioxide 15 L (21-31) mmol/L BUN 42 H (6.0-23.0) mg/dL Creatinine 2.9 H (0.6-1.5) mg/dL Est Cr Clr Drug Dosing 21.79 mL/min Estimated GFR (MDRD) 21.6 ml/min Glucose 137 H (60-110) mg/dL POC Glucose 153 H 112 H (60-110) mg/dL Uric Acid (2.1-7.4) mg/dL Calcium 7.2 L (8.8-10.8) mg/dL 09/08/17 09/09/17 09/09/17 Range/Units 21:45 02:44 05:54 WBC 13.79 H (4.0-11.0) K/uL RBC 3.06 L (4.50-5.90) M/uL Hgb 9.2 L (13.0-17.0) g/dL Hct 29.1 L (38.0-50.0) % MCV 95.1 (80.0-98.0) fL MCH 30.1 (27.0-32.0) pg MCHC 31.6 (31.0-37.0) g/dL RDW Std Deviation 49.2 (28.0-62.0) fl RDW Coeff of Jaleesa 14 (11.0-15.0) % Plt Count 222 (150-400) K/uL MPV 9.40 (7.40-12.00) fL Neut % (Auto) 77.2 (48.0-80.0) % Lymph % (Auto) 10.3 L (16.0-40.0) % [place] % (Auto) 11.2 (0.0-15.0) % Eos % (Auto) 1.2 (0.0-7.0) % Baso % (Auto) 0.1 (0.0-1.5) % Neut # (Auto) 10.6 H (1.4-5.7) K/uL Lymph # (Auto) 1.4 (0.6-2.4) K/uL [place] # (Auto) 1.5 H (0.0-0.8) K/uL Eos # (Auto) 0.2 (0.0-0.7) K/uL Baso # (Auto) 0.0 (0.0-0.1) K/uL Nucleated RBC % 0.0 /100WBC Nucleated RBCs # 0 K/uL Sodium (136-146) mmol/L Potassium (3.5-5.1) mmol/L Chloride (98-110) mmol/L Carbon Dioxide (21-31) mmol/L BUN (6.0-23.0) mg/dL Creatinine (0.6-1.5) mg/dL Est Cr Clr Drug Dosing mL/min Estimated GFR (MDRD) ml/min Glucose (60-110) mg/dL POC Glucose 182 H 109 (60-110) mg/dL Uric Acid (2.1-7.4) mg/dL Calcium (8.8-10.8) mg/dL 09/09/17 09/09/17 09/09/17 Range/Units 05:54 05:54 06:13 WBC (4.0-11.0) K/uL RBC (4.50-5.90) M/uL Hgb (13.0-17.0) g/dL Hct (38.0-50.0) % MCV (80.0-98.0) fL MCH (27.0-32.0) pg MCHC (31.0-37.0) g/dL RDW Std Deviation (28.0-62.0) fl RDW Coeff of Jaleesa (11.0-15.0) % Plt Count (150-400) K/uL MPV (7.40-12.00) fL Neut % (Auto) (48.0-80.0) % Lymph % (Auto) (16.0-40.0) % [place] % (Auto) (0.0-15.0) % Eos % (Auto) (0.0-7.0) % Baso % (Auto) (0.0-1.5) % Neut # (Auto) (1.4-5.7) K/uL Lymph # (Auto) (0.6-2.4) K/uL [place] # (Auto) (0.0-0.8) K/uL Eos # (Auto) (0.0-0.7) K/uL Baso # (Auto) (0.0-0.1) K/uL Nucleated RBC % /100WBC Nucleated RBCs # K/uL Sodium 136 (136-146) mmol/L Potassium 4.7 (3.5-5.1) mmol/L Chloride 114 H (98-110) mmol/L Carbon Dioxide 14 L (21-31) mmol/L BUN 43 H (6.0-23.0) mg/dL Creatinine 2.8 H (0.6-1.5) mg/dL Est Cr Clr Drug Dosing 22.57 mL/min Estimated GFR (MDRD) 22.5 ml/min Glucose 152 H (60-110) mg/dL POC Glucose 126 H (60-110) mg/dL Uric Acid 7.7 H (2.1-7.4) mg/dL Calcium 7.0 L (8.8-10.8) mg/dL Med Orders - Current: Current Medications Acetaminophen (Tylenol) 650 mg PO Q4H PRN PRN Reason: Pain/Fever Last Admin: 09/09/17 06:11 Dose: 650 mg Albuterol/Ipratropium (Duoneb 3.0-0.5 Mg/3 Ml) 3 ml NEB Q4HRRT PRN PRN Reason: Wheezing Last Admin: 09/08/17 12:43 Dose: 3 ml Heparin Sodium (Porcine) (Heparin Sodium) 5,000 units SUBCUT Q8H SAUNDRA Last Admin: 09/09/17 06:10 Dose: 5,000 units Hydromorphone HCl (Dilaudid) 1 mg IVPUSH Q4H PRN PRN Reason: Pain (severe 7-10) Last Admin: 09/09/17 03:26 Dose: 1 mg Sodium Chloride (Normal Saline) 500 mls @ 999 mls/hr IV STAT SAUNDRA Norepinephrine Bitartrate (Norepinephr-0.9% Nacl 4 Mg/250) 250 mls @ 7.5 mls/ hr IV TITRATE SAUNDRA; 2 MCG/MIN PRN Reason: Protocol Last Titration: 09/08/17 17:18 Dose: 0 mcg/min, 0 mls/hr Pantoprazole Sodium 40 mg/ (Sodium Chloride) 10 mls @ 300 mls/hr IVPUSH DAILY [facility] Last Admin: 09/09/17 09:50 Dose: Not Given Sodium Chloride (Sodium Chloride 0.45%) 1,000 mls @ 125 mls/hr IV ASDIRECTED [facility] Last Admin: 09/09/17 01:55 Dose: 125 mls/hr Sodium Chloride (Normal Saline) 250 mls @ 500 mls/hr IV ASDIRECTED [facility] [place] Last Admin: 09/08/17 01:50 Dose: 500 mls/hr Tobramycin 120 mg/ Sodium (Chloride) 103 mls @ 103 mls/hr IV Q24H [facility] [place] Last Admin: 09/08/17 18:38 Dose: 103 mls/hr Cefepime HCl 2 gm/ Premix 50 mls @ 100 mls/hr IV Q24H [facility] [place] Last Admin: 09/08/17 20:15 Dose: 100 mls/hr Insulin Aspart (Novolog) 0 unit SUBCUT Q4H SAUNDRA PRN Reason: Protocol Last Admin: 09/09/17 10:26 Dose: Not Given Ondansetron HCl (Zofran) 4 mg IVPUSH Q3H PRN PRN Reason: Nausea Last Admin: 09/07/17 13:34 Dose: 4 mg Polyethylene Glycol (Miralax) 17 gm PO DAILY PRN PRN Reason: Constipation Sodium Chloride (Saline Flush) 10 ml FLUSH ASDIRECTED PRN PRN Reason: Keep Vein Open Sodium Chloride (Saline Flush) 2.5 ml FLUSH ASDIRECTED PRN PRN Reason: Keep Vein Open Discontinued Medications Dopamine HCl (Dopamine) 400 mg .ROUTE .STK-MED ONE Stop: 09/07/17 16:41 Ephedrine Sulfate (Ephedrine Sulfate) Confirm Administered Dose 50 mg .ROUTE .STK-MED ONE Stop: 09/07/17 16:40 Ephedrine Sulfate (Ephedrine Sulfate) Confirm Administered Dose 50 mg .ROUTE .STK-MED ONE Stop: 09/07/17 17:13 Etomidate (Amidate) Confirm Administered Dose 40 mg IVPUSH .STK-MED ONE Stop: 09/07/17 16:38 Fentanyl (Sublimaze) Confirm Administered Dose 100 mcg .ROUTE .STK-MED ONE Stop: 09/07/17 17:26 Hydromorphone HCl (Dilaudid) 2 mg IVPUSH Q4H PRN PRN Reason: Pain Last Admin: 09/07/17 13:35 Dose: 2 mg Ceftriaxone Sodium/Dextrose 1 (gm/ Premix) 50 mls @ 100 mls/hr IV ONETIME ONE Stop: 09/07/17 09:48 Last Admin: 09/07/17 09:25 Dose: 100 mls/hr Sodium Chloride (Normal Saline) 1,000 mls @ 125 mls/hr IV STAT SAUNDRA Last Admin: 09/07/17 11:40 Dose: 125 mls/hr Ciprofloxacin/Dextrose 400 mg/ (Premix) 200 mls @ 200 mls/hr IV Q12H [facility] [place] Last Admin: 09/07/17 13:34 Dose: 200 mls/hr Sodium Chloride (Normal Saline) Confirm Administered Dose 20 mls @ as directed .ROUTE .STK-MED ONE Stop: 09/07/17 16:40 Tobramycin 120 mg/ Sodium (Chloride) 103 mls @ 206 mls/hr IV ONETIME ONE Stop: 09/07/17 17:59 Last Admin: 09/07/17 17:30 Dose: 206 mls/hr Ampicillin Sodium 2 gm/ Sodium (Chloride) 100 mls @ 200 mls/hr IV Q6H [facility] [place] Last Admin: 09/07/17 20:14 Dose: Not Given Lactated Ringer's (Ringers, Lactated) 1,000 mls @ 200 mls/hr IV ASDIRECTED [facility] [place] Last Admin: 09/07/17 20:00 Dose: 200 mls/hr Tobramycin 120 mg/ Sodium (Chloride) 103 mls @ 103 mls/hr IV Q12H SAUNDRA Cefepime HCl 2 gm/ Premix 50 mls @ 100 mls/hr IV Q12HR [facility] [place] Last Admin: 09/07/17 20:09 Dose: 100 mls/hr Norepinephrine Bitartrate 4 mg (/ Dextrose/Water) 250 mls @ 7.5 mls/hr IV TITRATE SAUNDRA; 2 MCG/MIN PRN Reason: Protocol Lactated Ringer's (Ringers, Lactated) 1,000 mls @ 100 mls/hr IV ASDIRECTED SAUNDRA Last Admin: 09/07/17 22:31 Dose: 100 mls/hr Insulin Aspart (Novolog) 0 unit SUBCUT Q6H SAUNDRA PRN Reason: Protocol Last Admin: 09/07/17 21:53 Dose: 2 units Insulin Aspart (Novolog) 2 unit SUBCUT ONETIME ONE Stop: 09/07/17 23:01 Last Admin: 09/07/17 23:18 Dose: 2 units Iopamidol (Isovue-200 (41%)) Confirm Administered Dose 50 ml .ROUTE .STK-MED ONE Stop: 09/07/17 15:03 Lidocaine (Xylocaine-Mpf 2%) Confirm Administered Dose 5 ml .ROUTE .STK-MED ONE Stop: 09/07/17 16:38 Midazolam HCl (Versed 1 Mg/Ml) Confirm Administered Dose 2 mg .ROUTE .STK-MED ONE Stop: 09/07/17 16:39 Norepinephrine Bitartrate (Levophed) 4 mg .ROUTE .STK-MED ONE Stop: 09/07/17 16:41 Phenylephrine HCl (Phenylephrine In Ns 100 Mcg/Ml) Confirm Administered Dose 1 mg .ROUTE .STK-MED ONE Stop: 09/07/17 16:38 Phenylephrine HCl (Phenylephrine In Ns 100 Mcg/Ml) Confirm Administered Dose 1 mg .ROUTE .STK-MED ONE Stop: 09/07/17 17:13 Sodium Bicarbonate (Sodium Bicarbonate 8.4%) 50 meq IVPUSH ONETIME ONE Stop: 09/07/17 22:56 Last Admin: 09/07/17 23:25 Dose: 50 meq - Exam Quality Assessment: Supplemental Oxygen General: Alert, Oriented, Cooperative HEENT: Pupils Equal, Pupils Reactive Neck: Supple, Trachea Midline, No JVD. No: Lymphadenopathy Lungs: Clear to Auscultation, Normal Respiratory Effort Cardiovascular: Regular Rate, Regular Rhythm GI/Abdominal Exam: Normal Bowel Sounds, Soft, No Organomegaly Extremities: Other (No reproducible pain with palpation over the left lateral hip. He does complain of hip pain when flexing. This could be referred pain from the kidney stone. Patient also complains of pain upon palpation of the right toe and palpation over the dorsal aspect of the foot. Limited dorsiflexion /plantar flexion at the ankle. Secondary to pain no erythema, induration, changes in temperature. Extremities appear to be warm and well-perfused.) Consult PN Assessment/Plan Procedures: Procedures AIRWAY INHALATION TREATMENT (10/13/16) ALANINE AMINO (ALT) (SGPT) (12/12/14) ANTINUCLEAR ANTIBODIES (12/25/16) ASSAY NEPHELOMETRY NOT SPEC (12/25/16) ASSAY OF BLOOD/URIC ACID (12/25/16) ASSAY OF CALCIUM (07/30/17) ASSAY OF CREATININE (03/04/16) ASSAY OF FERRITIN (12/25/16) ASSAY OF MAGNESIUM (01/09/17) ASSAY OF PARATHORMONE (07/30/17) ASSAY OF PROTEIN URINE (12/25/16) ASSAY OF PSA TOTAL (06/20/15) ASSAY OF TROPONIN QUANT (10/13/16) ASSAY OF URINE CREATININE (12/25/16) CHEST X-RAY 1 VIEW FRONTAL (10/13/16) COMPLEMENT ANTIGEN (12/25/16) COMPLETE CBC AUTOMATED (07/30/17) COMPLETE CBC W/AUTO DIFF WBC (12/25/16) COMPREHEN METABOLIC PANEL (10/13/16) CRITICAL CARE ADDL 30 MIN (09/28/16) CRITICAL CARE FIRST HOUR (09/28/16) ELECTROCARDIOGRAM TRACING (10/13/16) EMERGENCY DEPT VISIT (10/13/16) EMERGENCY DEPT VISIT (05/02/14) EVALUATE PT USE OF INHALER (10/13/16) EXTREMITY STUDY (10/13/16) FLUORESCENT ANTIBODY TITER (12/25/16) GLYCOSYLATED HEMOGLOBIN TEST (06/17/17) HELICOBACTER PYLORI ANTIBODY (04/16/15) HEMATOCRIT (10/13/16) HEMOGLOBIN (10/13/16) HYDRATE IV INFUSION ADD-ON (10/13/16) IMMUNFIX E-PHORSIS/URINE/CSF (12/25/16) IMMUNOASSAY NONANTIBODY (12/25/16) IMMUNOFIX E-PHORESIS SERUM (12/25/16) INSERT EMERGENCY AIRWAY (09/28/16) IRON BINDING TEST (12/25/16) LIPID PANEL (06/13/16) MEDICAL NUTRITION INDIV IN (10/13/16) METABOLIC PANEL TOTAL CA (06/17/17) MICROALBUMIN SEMIQUANT (06/17/17) OFFICE/OUTPATIENT VISIT EST (04/13/17) OFFICE/OUTPATIENT VISIT EST (02/13/16) OFFICE/OUTPATIENT VISIT EST (12/12/14) PPSV23 VACC 2 YRS+ SUBQ/IM (12/12/14) PROTEIN E-PHORESIS SERUM (12/25/16) PROTHROMBIN TIME (11/18/16) PT EVALUATION (10/13/16) RBC SED RATE AUTOMATED (09/21/15) RENAL FUNCTION PANEL (07/30/17) ROUTINE VENIPUNCTURE (07/30/17) THER/PROPH/DIAG INJ IV PUSH (10/13/16) THER/PROPH/DIAG IV INF INIT (09/28/16) THROMBOPLASTIN TIME PARTIAL (10/13/16) TX/PRO/DX INJ NEW DRUG ADDON (09/28/16) URINALYSIS AUTO W/SCOPE (06/17/17) US EXAM ABDO BACK WALL COMP (12/10/16) VASCULAR STUDY (12/10/16) VIT D 1 25-DIHYDROXY (07/30/17) VITAMIN D 25 HYDROXY (12/25/16) X-RAY EXAM OF ELBOW (05/02/14) X-RAY EXAM OF SHOULDER (05/02/14) Problem List Initiated/Reviewed/Updated: Yes My Orders Last 24 Hours: My Active Orders 09/09/17 09:07 Venous Doppler Lwr Ext Lt [US] Urgent 09/09/17 09:09 Polyethylene Glycol 3350 [MiraLAX] 17 gm PO DAILY PRN Assessment #1. Gram-negative brittany urosepsis #2. Septic shock that is resolved and no longer on the levophed drip #3. Left hip pain #4. Right foot pain #5. Leukocytosis that has improved #6. Hypoxia #7. Elevated uric acid Plan #1. Continue cefepime, tobramycin for antibiotic coverage. As per urology, will use this regimen for another day before de-escalating to possibly Rocephin #2. In regards to his left hip pain, we'll get an ultrasound of the leg to rule out DVT. He is on heparin for DVT prophylaxis #3. In regards to his elevated uric acid level, his pain can be secondary to gout although treatment at this time is limited secondary to his more acute issues. We'll hold off on using any sort of NSAIDs #4. Labs ordered for tomorrow morning
[2017-09-09] MEDS ORDERED: Albuterol 6.7 GM Inhaler INH PRN (15:08)
[2017-09-09] MEDS: Albuterol/Ipratropium 3.0-0.5 MG/3 ML Neb Soln NEB PRN (15:55)
[2017-09-09] MEDS ORDERED: Morphine 2 MG/ML Syringe IVPUSH ONE (19:15)
[2017-09-09] MEDS: Ipratropium 0.02% 0.5 MG/2.5 ML Neb Soln NEB SCH (19:23)
[2017-09-09] MEDS: rOPINIRole 1 MG Tab PO PRN (19:37)
[2017-09-09] MEDS ORDERED: Carboxymethylcellulose Sodium 0.5% Ophth Soln 0.4 ML UD Box of 30 EYEBOTH PRN (20:00)
[2017-09-09] MEDS: Cefepime 2 GM in Premix Bag 1 BAG IV SCH (20:11)
[2017-09-09] MEDS: Magnesium Oxide 400 MG Tab PO SCH (20:15)
[2017-09-09] MEDS: Montelukast 10 MG Tab PO SCH (20:15)
[2017-09-09] MEDS: buPROPion 150 MG Tab.SR PO SCH (20:15)
[2017-09-09] MEDS: Fluticasone Propionate Nasal Spray 16 GM Bottle NASBOTH SCH (20:16)
[2017-09-09] MEDS: Bisacodyl 5 MG Tab PO SCH (20:16)
[2017-09-09] MEDS ORDERED: Gabapentin 100 MG Cap PO SCH (21:00)
[2017-09-09] MEDS: Ondansetron 4 MG/2 ML SDV IVPUSH PRN (21:50)
[2017-09-09] MEDS: BUDESONIDE INH SCH (22:11)
[2017-09-09] MEDS: FORMOTEROL INH SCH (22:11)
[2017-09-10] MEDS: Ipratropium 0.02% 0.5 MG/2.5 ML Neb Soln NEB SCH ×5 (00:22→23:27)
[2017-09-10] MEDS: Insulin Aspart 100 Units/ML 3 ML Pen SUBCUT SCH ×6 (01:55→21:12)
[2017-09-10] MEDS: Sodium Chloride 0.45% 1,000 ML IV SCH (03:26)
[2017-09-10] MEDS: HYDROmorphone 1 MG/ML Syringe IVPUSH PRN (03:27)
[2017-09-10] MEDS: Heparin Sodium 5,000 Units/ML Vial SUBCUT SCH ×3 (07:30→23:26)
[2017-09-10] MEDS: rOPINIRole 1 MG Tab PO PRN ×2 (07:31→17:00)
[2017-09-10] MEDS: Albuterol/Ipratropium 3.0-0.5 MG/3 ML Neb Soln NEB PRN (07:48)
[2017-09-10] MEDS ORDERED: Insulin Aspart 100 Units/ML 3 ML Pen SUBCUT SCH (08:00)
--- NOTE | 2017-09-10 08:27 | US ---
ULTRASOUND EXAMINATION OF the left lower extremity WITH DOPPLER HISTORY: Pain FINDINGS: Examination of the left leg was performed from the groin to the calf region. All visualized segments including common femoral, proximal greater saphenous, superficial femoral, popliteal and calf veins appear patent with good compressibility and augmentation. There is no evidence of deep vein thrombos is. IMPRESSION: No evidence of a DVT.
[2017-09-10] MEDS: Cetirizine 10 MG Tab PO SCH (08:35)
[2017-09-10] MEDS: Folic Acid 1 MG Tab PO SCH (08:35)
[2017-09-10] MEDS: Finasteride 5 MG Tab PO SCH (08:35)
[2017-09-10] MEDS: Ferrous Sulfate 325 MG Tab PO SCH (08:35)
[2017-09-10] MEDS: Magnesium Oxide 400 MG Tab PO SCH ×2 (08:35→21:03)
[2017-09-10] MEDS: Sertraline 50 MG Tab PO SCH (08:35)
[2017-09-10] MEDS: Fluticasone Propionate Nasal Spray 16 GM Bottle NASBOTH SCH ×2 (08:36→21:05)
[2017-09-10] MEDS: Pantoprazole 40 MG in Sodium Chloride 0.9% 10 ML IVPUSH SCH (08:42)
[2017-09-10] MEDS ORDERED: Cyanocobalamin (Vitamin B12) 1,000 MCG/ML SDV IM SCH (09:00)
[2017-09-10] MEDS ORDERED: Omeprazole 20 MG Cap.CR PO SCH (09:00)
[2017-09-10] MEDS: BUDESONIDE INH SCH ×2 (09:34→22:35)
[2017-09-10] MEDS: FORMOTEROL INH SCH ×2 (09:34→22:35)
[2017-09-10] MEDS: Gabapentin 100 MG Cap PO SCH ×2 (09:57→21:02)
[2017-09-10] MEDS: Tiotropium Inhaler 18 MCG Inhalation Powder Cap Kit of 5 INH SCH ×2 (10:27→10:37)
[2017-09-10] MEDS: Acetaminophen 325 MG Tab PO PRN (14:55)
--- NOTE | 2017-09-10 15:56 | CR ---
EXAM DATE: 09/07/17 PATIENT'S AGE: 72 Patient: CELSO ARCINIEGA Facility: [place], [place] Site . Site : [id number] Study: XRay Chest [id number] 7:33:35 PM Ordering Physician: Ike Saez Final Report: INDICATION: Chest pain. TECHNIQUE: Chest radiograph 1 view COMPARISON: 09/07/2017. FINDINGS: Cardiac silhouette remains enlarged. Right IJ central venous catheter, tip position stable in the lower SVC. Lung markings are unchanged. No pneumothorax or definite blunting of costophrenic sulci. IMPRESSION: 1. Mild cardiomegaly with mild diminished lung volumes, no acute interval change from 09/07/2017. Dictated by Kennedy Payne MD @ 09/09/2017 7:43:00 PM Dictated by: Kennedy Payne MD @ 09/09/2017 19:43:04 (Electronic Signature) Report Signed by Proxy. DARNELL
--- NOTE | 2017-09-10 16:53 | PCM.CONSN ---
- General Info Date of Service: 09/10/17 Subjective Update: 72-year-old male admitted for a gram-negative brittany urosepsis currently in ICU. The hip pain that the patient was complaining of was ruled out for DVT. However , the patient had an episode of chest pain reported to the hospitalist last night which resolved after receiving morphine. Troponins and EKG were negative. The patient's morning, he denied having any chest pain episode after that or currently. Talking to the patient this morning, the pain is no longer there. However, his right foot pain appears to be still present and he says it's exacerbated by placing any weight onto his foot resulting in him being stationary. He denies any fevers, chills nausea or vomiting. Denies any chest pain. Denies any flank pain. He has been able to urinate.. - Review of Systems General: Reports: Other (See history of present illness) - Patient Data Vitals - Most Recent: Last Vital Signs Temp 37 C 09/10/17 12:00 Pulse 89 09/09/17 06:00 Resp 20 09/10/17 12:00 BP 143/59 H 09/10/17 12:00 Pulse Ox 95 09/10/17 12:00 Weight - Most Recent: 115.6 kg I&O - Last 24 Hours: Intake & Output 09/10/17 09/10/17 09/10/17 06:59 14:59 22:59 Intake Total 1786 410 100 Output Total 1125 Balance 661 410 100 Lab Results Last 24 Hours: Laboratory Results - last 24 hr 09/09/17 09/09/17 09/09/17 Range/Units 09:59 14:39 14:56 WBC (4.0-11.0) K/uL RBC (4.50-5.90) M/uL Hgb (13.0-17.0) g/dL Hct (38.0-50.0) % MCV (80.0-98.0) fL MCH (27.0-32.0) pg MCHC (31.0-37.0) g/dL RDW Std Deviation (28.0-62.0) fl RDW Coeff of Jaleesa (11.0-15.0) % Plt Count (150-400) K/uL MPV (7.40-12.00) fL Neut % (Auto) (48.0-80.0) % Lymph % (Auto) (16.0-40.0) % Andrew % (Auto) (0.0-15.0) % Eos % (Auto) (0.0-7.0) % Baso % (Auto) (0.0-1.5) % Neut # (Auto) (1.4-5.7) K/uL Lymph # (Auto) (0.6-2.4) K/uL Andrew # (Auto) (0.0-0.8) K/uL Eos # (Auto) (0.0-0.7) K/uL Baso # (Auto) (0.0-0.1) K/uL Nucleated RBC % /100WBC Nucleated RBCs # K/uL Sodium (136-146) mmol/L Potassium (3.5-5.1) mmol/L Chloride (98-110) mmol/L Carbon Dioxide (21-31) mmol/L BUN (6.0-23.0) mg/dL Creatinine (0.6-1.5) mg/dL Est Cr Clr Drug Dosing mL/min Estimated GFR (MDRD) ml/min Glucose (60-110) mg/dL POC Glucose 138 H 165 H 171 H (60-110) mg/dL Calcium (8.8-10.8) mg/dL Troponin I (0.0-0.29) NG/ML Random Tobramycin (2-10) ug/mL Tobramycin Peak (5-10) ug/mL 09/09/17 09/09/17 09/09/17 Range/Units 18:19 19:06 19:49 WBC (4.0-11.0) K/uL RBC (4.50-5.90) M/uL Hgb (13.0-17.0) g/dL Hct (38.0-50.0) % MCV (80.0-98.0) fL MCH (27.0-32.0) pg MCHC (31.0-37.0) g/dL RDW Std Deviation (28.0-62.0) fl RDW Coeff of Jaleesa (11.0-15.0) % Plt Count (150-400) K/uL MPV (7.40-12.00) fL Neut % (Auto) (48.0-80.0) % Lymph % (Auto) (16.0-40.0) % Andrew % (Auto) (0.0-15.0) % Eos % (Auto) (0.0-7.0) % Baso % (Auto) (0.0-1.5) % Neut # (Auto) (1.4-5.7) K/uL Lymph # (Auto) (0.6-2.4) K/uL Andrew # (Auto) (0.0-0.8) K/uL Eos # (Auto) (0.0-0.7) K/uL Baso # (Auto) (0.0-0.1) K/uL Nucleated RBC % /100WBC Nucleated RBCs # K/uL Sodium (136-146) mmol/L Potassium (3.5-5.1) mmol/L Chloride (98-110) mmol/L Carbon Dioxide (21-31) mmol/L BUN (6.0-23.0) mg/dL Creatinine (0.6-1.5) mg/dL Est Cr Clr Drug Dosing mL/min Estimated GFR (MDRD) ml/min Glucose (60-110) mg/dL POC Glucose 245 H (60-110) mg/dL Calcium (8.8-10.8) mg/dL Troponin I < 0.10 (0.0-0.29) NG/ML Random Tobramycin (2-10) ug/mL Tobramycin Peak 5.7 (5-10) ug/mL 09/09/17 09/10/17 09/10/17 Range/Units 21:47 00:46 01:50 WBC (4.0-11.0) K/uL RBC (4.50-5.90) M/uL Hgb (13.0-17.0) g/dL Hct (38.0-50.0) % MCV (80.0-98.0) fL MCH (27.0-32.0) pg MCHC (31.0-37.0) g/dL RDW Std Deviation (28.0-62.0) fl RDW Coeff of Jaleesa (11.0-15.0) % Plt Count (150-400) K/uL MPV (7.40-12.00) fL Neut % (Auto) (48.0-80.0) % Lymph % (Auto) (16.0-40.0) % Andrew % (Auto) (0.0-15.0) % Eos % (Auto) (0.0-7.0) % Baso % (Auto) (0.0-1.5) % Neut # (Auto) (1.4-5.7) K/uL Lymph # (Auto) (0.6-2.4) K/uL Andrew # (Auto) (0.0-0.8) K/uL Eos # (Auto) (0.0-0.7) K/uL Baso # (Auto) (0.0-0.1) K/uL Nucleated RBC % /100WBC Nucleated RBCs # K/uL Sodium (136-146) mmol/L Potassium (3.5-5.1) mmol/L Chloride (98-110) mmol/L Carbon Dioxide (21-31) mmol/L BUN (6.0-23.0) mg/dL Creatinine (0.6-1.5) mg/dL Est Cr Clr Drug Dosing mL/min Estimated GFR (MDRD) ml/min Glucose (60-110) mg/dL POC Glucose 184 H 160 H (60-110) mg/dL Calcium (8.8-10.8) mg/dL Troponin I < 0.10 (0.0-0.29) NG/ML Random Tobramycin (2-10) ug/mL Tobramycin Peak (5-10) ug/mL 09/10/17 09/10/17 09/10/17 Range/Units 06:12 06:47 06:47 WBC 9.01 (4.0-11.0) K/uL RBC 3.01 L (4.50-5.90) M/uL Hgb 9.1 L (13.0-17.0) g/dL Hct 28.2 L (38.0-50.0) % MCV 93.7 (80.0-98.0) fL MCH 30.2 (27.0-32.0) pg MCHC 32.3 (31.0-37.0) g/dL RDW Std Deviation 47.9 (28.0-62.0) fl RDW Coeff of Jaleesa 14 (11.0-15.0) % Plt Count 266 (150-400) K/uL MPV 9.50 (7.40-12.00) fL Neut % (Auto) 74.5 (48.0-80.0) % Lymph % (Auto) 11.2 L (16.0-40.0) % Andrew % (Auto) 11.8 (0.0-15.0) % Eos % (Auto) 2.4 (0.0-7.0) % Baso % (Auto) 0.1 (0.0-1.5) % Neut # (Auto) 6.7 H (1.4-5.7) K/uL Lymph # (Auto) 1.0 (0.6-2.4) K/uL Andrew # (Auto) 1.1 H (0.0-0.8) K/uL Eos # (Auto) 0.2 (0.0-0.7) K/uL Baso # (Auto) 0.0 (0.0-0.1) K/uL Nucleated RBC % 0.0 /100WBC Nucleated RBCs # 0 K/uL Sodium 135 L (136-146) mmol/L Potassium 4.5 (3.5-5.1) mmol/L Chloride 112 H (98-110) mmol/L Carbon Dioxide 14 L (21-31) mmol/L BUN 37 H (6.0-23.0) mg/dL Creatinine 2.4 H (0.6-1.5) mg/dL Est Cr Clr Drug Dosing 26.33 mL/min Estimated GFR (MDRD) 26.8 ml/min Glucose 141 H (60-110) mg/dL POC Glucose 131 H (60-110) mg/dL Calcium 8.0 L (8.8-10.8) mg/dL Troponin I (0.0-0.29) NG/ML Random Tobramycin (2-10) ug/mL Tobramycin Peak (5-10) ug/mL 09/10/17 09/10/17 09/10/17 Range/Units 06:47 06:47 11:44 WBC (4.0-11.0) K/uL RBC (4.50-5.90) M/uL Hgb (13.0-17.0) g/dL Hct (38.0-50.0) % MCV (80.0-98.0) fL MCH (27.0-32.0) pg MCHC (31.0-37.0) g/dL RDW Std Deviation (28.0-62.0) fl RDW Coeff of Jaleesa (11.0-15.0) % Plt Count (150-400) K/uL MPV (7.40-12.00) fL Neut % (Auto) (48.0-80.0) % Lymph % (Auto) (16.0-40.0) % Andrew % (Auto) (0.0-15.0) % Eos % (Auto) (0.0-7.0) % Baso % (Auto) (0.0-1.5) % Neut # (Auto) (1.4-5.7) K/uL Lymph # (Auto) (0.6-2.4) K/uL Andrew # (Auto) (0.0-0.8) K/uL Eos # (Auto) (0.0-0.7) K/uL Baso # (Auto) (0.0-0.1) K/uL Nucleated RBC % /100WBC Nucleated RBCs # K/uL Sodium (136-146) mmol/L Potassium (3.5-5.1) mmol/L Chloride (98-110) mmol/L Carbon Dioxide (21-31) mmol/L BUN (6.0-23.0) mg/dL Creatinine (0.6-1.5) mg/dL Est Cr Clr Drug Dosing mL/min Estimated GFR (MDRD) ml/min Glucose (60-110) mg/dL POC Glucose 219 H (60-110) mg/dL Calcium (8.8-10.8) mg/dL Troponin I < 0.10 (0.0-0.29) NG/ML Random Tobramycin 3.4 (2-10) ug/mL Tobramycin Peak (5-10) ug/mL Med Orders - Current: Current Medications Acetaminophen (Tylenol) 650 mg PO Q4H PRN PRN Reason: Pain/Fever Last Admin: 09/10/17 14:55 Dose: 650 mg Albuterol (Proventil Hfa) 6.7 gm INH TID PRN PRN Reason: Shortness of Breath Albuterol/Ipratropium (Duoneb 3.0-0.5 Mg/3 Ml) 3 ml NEB Q4HRRT PRN PRN Reason: Wheezing Last Admin: 09/10/17 07:48 Dose: 3 ml Artificial Tears (Refresh Plus 0.5%) 0 each EYEBOTH ASDIRECTED PRN PRN Reason: Dry Eyes Bisacodyl (Dulcolax) 10 mg PO BEDTIME [facility] Last Admin: 09/09/17 20:16 Dose: 10 mg Bupropion HCl (Wellbutrin Sr) 150 mg PO BEDTIME [facility] Last Admin: 09/09/17 20:15 Dose: 150 mg Cetirizine HCl (Zyrtec) 10 mg PO DAILY [facility] Last Admin: 09/10/17 08:35 Dose: 10 mg Cyanocobalamin (Vitamin B12) 1,000 mcg IM Q30D [facility] Last Admin: 09/10/17 09:54 Dose: 1,000 mcg Ferrous Sulfate (Ferrous Sulfate) 325 mg PO DAILY [facility] Last Admin: 09/10/17 08:35 Dose: 325 mg Finasteride (Proscar) 5 mg PO DAILY [facility] Last Admin: 09/10/17 08:35 Dose: 5 mg Fluticasone Propionate (Flonase) 0 gm NASBOTH BID [facility] Last Admin: 09/10/17 08:36 Dose: 1 applic Folic Acid (Folic Acid) 0.5 mg PO QAM [facility] Last Admin: 09/10/17 08:35 Dose: 0.5 mg Gabapentin (Neurontin) 100 mg PO BID [facility] Last Admin: 09/10/17 09:57 Dose: 100 mg Heparin Sodium (Porcine) (Heparin Sodium) 5,000 units SUBCUT Q8H [facility] Last Admin: 09/10/17 14:50 Dose: 5,000 units Hydromorphone HCl (Dilaudid) 1 mg IVPUSH Q4H PRN PRN Reason: Pain (severe 7-10) Last Admin: 09/10/17 03:27 Dose: 1 mg Sodium Chloride (Normal Saline) 500 mls @ 999 mls/hr IV STAT [facility] Norepinephrine Bitartrate (Norepinephr-0.9% Nacl 4 Mg/250) 250 mls @ 7.5 mls/ hr IV TITRATE SAUNDRA; 2 MCG/MIN PRN Reason: Protocol Last Titration: 09/08/17 17:18 Dose: 0 mcg/min, 0 mls/hr Pantoprazole Sodium 40 mg/ (Sodium Chloride) 10 mls @ 300 mls/hr IVPUSH DAILY [facility] Last Admin: 09/10/17 08:42 Dose: 300 mls/hr Cefotaxime Sodium 2 gm/ Sodium (Chloride) 100 mls @ 200 mls/hr IV Q8H [facility] Last Admin: 09/10/17 15:04 Dose: 200 mls/hr Insulin Aspart (Novolog) 0 unit SUBCUT WITHMEALSANDBED [facility] PRN Reason: Protocol Last Admin: 09/10/17 12:13 Dose: Not Given Ipratropium [place] (Atrovent) 0.5 mg NEB Q6HRRT [facility] Last Admin: 09/10/17 12:27 Dose: 0.5 mg Magnesium Oxide (Magnesium Oxide) 400 mg PO BID [facility] Last Admin: 09/10/17 08:35 Dose: 400 mg Montelukast Sodium (Singulair) 10 mg PO BEDTIME [facility] Last Admin: 09/09/17 20:15 Dose: 10 mg Ondansetron HCl (Zofran) 4 mg IVPUSH Q3H PRN PRN Reason: Nausea Last Admin: 09/09/17 21:50 Dose: 4 mg Budesonide/Formoterol ( Symbicort 160/4.5) 0 each INH BID [facility] Last Admin: 09/10/17 09:34 Dose: Not Given Polyethylene Glycol (Miralax) 17 gm PO DAILY PRN PRN Reason: Constipation Last Admin: 09/09/17 16:16 Dose: 17 gm Ropinirole HCl (Requip) 1 mg PO TID PRN PRN Reason: Pain Last Admin: 09/10/17 07:31 Dose: 1 mg Senna/Docusate Sodium (Senna Plus) 2 tab PO DAILY PRN PRN Reason: Constipation Last Admin: 09/10/17 08:35 Dose: 2 tab Sertraline HCl (Zoloft) 50 mg PO DAILY [facility] Last Admin: 09/10/17 08:35 Dose: 50 mg Sodium Chloride (Saline Flush) 10 ml FLUSH ASDIRECTED PRN PRN Reason: Keep Vein Open Sodium Chloride (Saline Flush) 2.5 ml FLUSH ASDIRECTED PRN PRN Reason: Keep Vein Open Tiotropium [place] (Spiriva Handihaler) 18 mcg INH DAILY [facility] Last Admin: 09/10/17 10:37 Dose: 1 puff Zaleplon (Sonata) 5 mg PO BEDTIME PRN PRN Reason: Insomnia Discontinued Medications Dopamine HCl (Dopamine) 400 mg .ROUTE .STK-MED ONE Stop: 09/07/17 16:41 Ephedrine Sulfate (Ephedrine Sulfate) Confirm Administered Dose 50 mg .ROUTE .STK-MED ONE Stop: 09/07/17 16:40 Ephedrine Sulfate (Ephedrine Sulfate) Confirm Administered Dose 50 mg .ROUTE .STK-MED ONE Stop: 09/07/17 17:13 Etomidate (Amidate) Confirm Administered Dose 40 mg IVPUSH .STK-MED ONE Stop: 09/07/17 16:38 Fentanyl (Sublimaze) Confirm Administered Dose 100 mcg .ROUTE .STK-MED ONE Stop: 09/07/17 17:26 Fluticasone Propionate (Flonase) 16 gm .ROUTE .STK-MED ONE Stop: 09/10/17 22:01 Gabapentin (Neurontin) 100 mg PO BEDTIME [facility] Last Admin: 09/09/17 20:15 Dose: 100 mg Hydromorphone HCl (Dilaudid) 2 mg IVPUSH Q4H PRN PRN Reason: Pain Last Admin: 09/07/17 13:35 Dose: 2 mg Ceftriaxone Sodium/Dextrose 1 (gm/ Premix) 50 mls @ 100 mls/hr IV ONETIME ONE Stop: 09/07/17 09:48 Last Admin: 09/07/17 09:25 Dose: 100 mls/hr Sodium Chloride (Normal Saline) 1,000 mls @ 125 mls/hr IV STAT [facility] Last Admin: 09/07/17 11:40 Dose: 125 mls/hr Ciprofloxacin/Dextrose 400 mg/ (Premix) 200 mls @ 200 mls/hr IV Q12H [facility] Last Admin: 09/07/17 13:34 Dose: 200 mls/hr Sodium Chloride (Normal Saline) Confirm Administered Dose 20 mls @ as directed .ROUTE .STK-MED ONE Stop: 09/07/17 16:40 Tobramycin 120 mg/ Sodium (Chloride) 103 mls @ 206 mls/hr IV ONETIME ONE Stop: 09/07/17 17:59 Last Admin: 09/07/17 17:30 Dose: 206 mls/hr Ampicillin Sodium 2 gm/ Sodium (Chloride) 100 mls @ 200 mls/hr IV Q6H [facility] Last Admin: 09/07/17 20:14 Dose: Not Given Lactated Ringer's (Ringers, Lactated) 1,000 mls @ 200 mls/hr IV ASDIRECTED [facility] Last Admin: 09/07/17 20:00 Dose: 200 mls/hr Tobramycin 120 mg/ Sodium (Chloride) 103 mls @ 103 mls/hr IV Q12H [facility] Cefepime HCl 2 gm/ Premix 50 mls @ 100 mls/hr IV Q12HR [facility] Last Admin: 09/07/17 20:09 Dose: 100 mls/hr Norepinephrine Bitartrate 4 mg (/ Dextrose/Water) 250 mls @ 7.5 mls/hr IV TITRATE SAUNDRA; 2 MCG/MIN PRN Reason: Protocol Lactated Ringer's (Ringers, Lactated) 1,000 mls @ 100 mls/hr IV ASDIRECTED [facility] Last Admin: 09/07/17 22:31 Dose: 100 mls/hr Sodium Chloride (Sodium Chloride 0.45%) 1,000 mls @ 125 mls/hr IV ASDIRECTED [facility] Last Admin: 09/10/17 03:26 Dose: 125 mls/hr Sodium Chloride (Normal Saline) 250 mls @ 500 mls/hr IV ASDIRECTED [facility] Last Admin: 09/08/17 01:50 Dose: 500 mls/hr Tobramycin 120 mg/ Sodium (Chloride) 103 mls @ 103 mls/hr IV Q24H [facility] Last Admin: 09/09/17 18:15 Dose: 103 mls/hr Cefepime HCl 2 gm/ Premix 50 mls @ 100 mls/hr IV Q24H [facility] Last Admin: 09/09/17 20:11 Dose: 100 mls/hr Cefotaxime Sodium 2 gm/ Sodium (Chloride) 100 mls @ 200 mls/hr IV Q8HR [facility] Cefotaxime Sodium 2 gm/ Sodium (Chloride) 100 mls @ 200 mls/hr IV Q8HR [facility] Last Admin: 09/10/17 14:42 Dose: Not Given Insulin Aspart (Novolog) 0 unit SUBCUT Q6H [facility] PRN Reason: Protocol Last Admin: 09/07/17 21:53 Dose: 2 units Insulin Aspart (Novolog) 2 unit SUBCUT ONETIME ONE Stop: 09/07/17 23:01 Last Admin: 09/07/17 23:18 Dose: 2 units Insulin Aspart (Novolog) 0 unit SUBCUT Q4H [facility] PRN Reason: Protocol Last Admin: 09/10/17 06:40 Dose: Not Given Insulin Aspart (Novolog) 0 unit SUBCUT ACBREAKFASTANDBED [facility] PRN Reason: Protocol Iopamidol (Isovue-200 (41%)) Confirm Administered Dose 50 ml .ROUTE .STK-MED ONE Stop: 09/07/17 15:03 Lidocaine (Xylocaine-Mpf 2%) Confirm Administered Dose 5 ml .ROUTE .STK-MED ONE Stop: 09/07/17 16:38 Midazolam HCl (Versed 1 Mg/Ml) Confirm Administered Dose 2 mg .ROUTE .STK-MED ONE Stop: 09/07/17 16:39 Morphine Sulfate (Morphine) 2 mg IVPUSH ONETIME ONE Stop: 09/09/17 19:16 Last Admin: 09/09/17 19:20 Dose: 2 mg Norepinephrine Bitartrate (Levophed) 4 mg .ROUTE .STK-MED ONE Stop: 09/07/17 16:41 Omeprazole (Omeprazole) 20 mg PO DAILY [facility] Last Admin: 09/10/17 08:35 Dose: 20 mg Phenylephrine HCl (Phenylephrine In Ns 100 Mcg/Ml) Confirm Administered Dose 1 mg .ROUTE .STK-MED ONE Stop: 09/07/17 16:38 Phenylephrine HCl (Phenylephrine In Ns 100 Mcg/Ml) Confirm Administered Dose 1 mg .ROUTE .STK-MED ONE Stop: 09/07/17 17:13 Sodium Bicarbonate (Sodium Bicarbonate 8.4%) 50 meq IVPUSH ONETIME ONE Stop: 09/07/17 22:56 Last Admin: 09/07/17 23:25 Dose: 50 meq - Exam Quality Assessment: Supplemental Oxygen General: Alert, Oriented HEENT: Pupils Equal, Pupils Reactive Neck: Supple Lungs: Clear to Auscultation, Normal Respiratory Effort Cardiovascular: Regular Rate, Regular Rhythm GI/Abdominal Exam: Normal Bowel Sounds, Soft, Non-Tender Extremities: Other (Tenderness to palpation over the dorsal aspect of the right foot. This is not appear to be indurated or erythematous. Sensation is intact) Skin: Warm, Intact Consult PN Assessment/Plan Procedures: Procedures AIRWAY INHALATION TREATMENT (10/13/16) ALANINE AMINO (ALT) (SGPT) (12/12/14) ANTINUCLEAR ANTIBODIES (12/25/16) ASSAY NEPHELOMETRY NOT SPEC (12/25/16) ASSAY OF BLOOD/URIC ACID (12/25/16) ASSAY OF CALCIUM (07/30/17) ASSAY OF CREATININE (03/04/16) ASSAY OF FERRITIN (12/25/16) ASSAY OF MAGNESIUM (01/09/17) ASSAY OF PARATHORMONE (07/30/17) ASSAY OF PROTEIN URINE (12/25/16) ASSAY OF PSA TOTAL (06/20/15) ASSAY OF TROPONIN QUANT (10/13/16) ASSAY OF URINE CREATININE (12/25/16) CHEST X-RAY 1 VIEW FRONTAL (10/13/16) COMPLEMENT ANTIGEN (12/25/16) COMPLETE CBC AUTOMATED (07/30/17) COMPLETE CBC W/AUTO DIFF WBC (12/25/16) COMPREHEN METABOLIC PANEL (10/13/16) CRITICAL CARE ADDL 30 MIN (09/28/16) CRITICAL CARE FIRST HOUR (09/28/16) ELECTROCARDIOGRAM TRACING (10/13/16) EMERGENCY DEPT VISIT (10/13/16) EMERGENCY DEPT VISIT (05/02/14) EVALUATE PT USE OF INHALER (10/13/16) EXTREMITY STUDY (10/13/16) FLUORESCENT ANTIBODY TITER (12/25/16) GLYCOSYLATED HEMOGLOBIN TEST (06/17/17) HELICOBACTER PYLORI ANTIBODY (04/16/15) HEMATOCRIT (10/13/16) HEMOGLOBIN (10/13/16) HYDRATE IV INFUSION ADD-ON (10/13/16) IMMUNFIX E-PHORSIS/URINE/CSF (12/25/16) IMMUNOASSAY NONANTIBODY (12/25/16) IMMUNOFIX E-PHORESIS SERUM (12/25/16) INSERT EMERGENCY AIRWAY (09/28/16) IRON BINDING TEST (12/25/16) LIPID PANEL (06/13/16) MEDICAL NUTRITION INDIV IN (10/13/16) METABOLIC PANEL TOTAL CA (06/17/17) MICROALBUMIN SEMIQUANT (06/17/17) OFFICE/OUTPATIENT VISIT EST (04/13/17) OFFICE/OUTPATIENT VISIT EST (02/13/16) OFFICE/OUTPATIENT VISIT EST (12/12/14) PPSV23 VACC 2 YRS+ SUBQ/IM (12/12/14) PROTEIN E-PHORESIS SERUM (12/25/16) PROTHROMBIN TIME (11/18/16) PT EVALUATION (10/13/16) RBC SED RATE AUTOMATED (09/21/15) RENAL FUNCTION PANEL (07/30/17) ROUTINE VENIPUNCTURE (07/30/17) THER/PROPH/DIAG INJ IV PUSH (10/13/16) THER/PROPH/DIAG IV INF INIT (09/28/16) THROMBOPLASTIN TIME PARTIAL (10/13/16) TX/PRO/DX INJ NEW DRUG ADDON (09/28/16) URINALYSIS AUTO W/SCOPE (06/17/17) US EXAM ABDO BACK WALL COMP (12/10/16) VASCULAR STUDY (12/10/16) VIT D 1 25-DIHYDROXY (07/30/17) VITAMIN D 25 HYDROXY (12/25/16) X-RAY EXAM OF ELBOW (05/02/14) X-RAY EXAM OF SHOULDER (05/02/14) Problem List Initiated/Reviewed/Updated: Yes My Orders Last 24 Hours: My Active Orders 09/09/17 18:00 Ipratropium [Atrovent] 0.5 mg NEB Q6HRRT 09/09/17 21:00 Bisacodyl [Dulcolax] 10 mg PO BEDTIME Fluticasone Propionate [Flonase] 0 gm NASBOTH BID Magnesium Oxide 400 mg PO BID Montelukast [Singulair] 10 mg PO BEDTIME Patient's Own Medication [Ptom] 0 each INH BID buPROPion [Wellbutrin SR] 150 mg PO BEDTIME 09/10/17 09:00 Cetirizine [ZyrTEC] 10 mg PO DAILY Cyanocobalamin (Vitamin B12) [Vitamin B12] 1,000 mcg IM Q30D Ferrous Sulfate 325 mg PO DAILY Finasteride [Proscar] 5 mg PO DAILY Folic Acid 0.5 mg PO QAM Sertraline [Zoloft] 50 mg PO DAILY Tiotropium [Spiriva HandiHaler] 18 mcg INH DAILY 09/10/17 10:49 Transfer Patient (Change bed) [ADT] Routine 09/10/17 11:07 Transfer Patient (Change bed) [ADT] Routine Plan: Assessment 1. Gram-negative brittany sepsis - resolved #2. Leukocytosis that has resolved #3. Right foot pain #4. Elevated BUN/creatinine #5. ACS ruled out with negative troponin 3 Plan #1. Transfer patient to regular floor #2. Change antibiotics to cefotaxime 2 g IV every 8 hours #3. Increase gabapentin 100 mg by mouth twice a day #4. Patient told me that he's had this similar pain the last time he had surgery. We will retrieve records from [place] where he had a surgery a few years ago.
[2017-09-10] MEDS: Montelukast 10 MG Tab PO SCH (21:02)
[2017-09-10] MEDS: Bisacodyl 5 MG Tab PO SCH (21:03)
[2017-09-10] MEDS: buPROPion 150 MG Tab.SR PO SCH (21:03)
[2017-09-10] MEDS ORDERED: Fluticasone Propionate Nasal Spray 16 GM Bottle ONE (22:00)
[2017-09-11] MEDS: HYDROmorphone 1 MG/ML Syringe IVPUSH PRN ×4 (00:41→22:55)
[2017-09-11] MEDS: Heparin Sodium 5,000 Units/ML Vial SUBCUT SCH ×3 (06:34→22:49)
[2017-09-11] MEDS: Ipratropium 0.02% 0.5 MG/2.5 ML Neb Soln NEB SCH ×4 (06:58→23:00)
[2017-09-11] MEDS: Finasteride 5 MG Tab PO SCH (08:12)
[2017-09-11] MEDS: Cetirizine 10 MG Tab PO SCH (08:12)
[2017-09-11] MEDS: Sertraline 50 MG Tab PO SCH (08:12)
[2017-09-11] MEDS: Folic Acid 1 MG Tab PO SCH (08:12)
[2017-09-11] MEDS: Magnesium Oxide 400 MG Tab PO SCH ×2 (08:12→20:30)
[2017-09-11] MEDS: Ferrous Sulfate 325 MG Tab PO SCH (08:13)
[2017-09-11] MEDS: Insulin Aspart 100 Units/ML 3 ML Pen SUBCUT SCH ×4 (08:13→20:40)
[2017-09-11] MEDS: Gabapentin 100 MG Cap PO SCH (08:13)
[2017-09-11] MEDS: Pantoprazole 40 MG in Sodium Chloride 0.9% 10 ML IVPUSH SCH (08:14)
[2017-09-11] MEDS: Fluticasone Propionate Nasal Spray 16 GM Bottle NASBOTH SCH ×2 (08:15→20:31)
[2017-09-11] MEDS: FORMOTEROL INH SCH ×2 (09:42→20:43)
[2017-09-11] MEDS: BUDESONIDE INH SCH ×2 (09:42→20:43)
[2017-09-11] MEDS: Tiotropium Inhaler 18 MCG Inhalation Powder Cap Kit of 5 INH SCH (09:43)
[2017-09-11] MEDS ORDERED: Gabapentin 100 MG Cap PO ONE (10:37)
--- NOTE | 2017-09-11 12:57 | PCM.CONSN ---
- General Info Date of Service: 09/11/17 Subjective Update: 72-year-old male now on the regular floor secondary to urosepsis that has now shown clinical signs of improvement on IV antibiotics. Dr. gonzalez's morning, he denies having any flank pain, fevers or chills. However he continues to complain of bilateral foot pain. He has such base with physical therapy who has been able to work with him and get him to walk to the end of his room and back but not anymore than that. He tells me that his main concern right now is not being able to walk. Aside from this he has been able to urinate without any difficulty. - Review of Systems General: Reports: Other (See history of present illness) - Patient Data Vitals - Most Recent: Last Vital Signs Temp 37.0 C 09/11/17 11:54 Pulse 85 09/11/17 11:54 Resp 22 H 09/11/17 11:54 BP 130/59 L 09/11/17 11:54 Pulse Ox 95 09/11/17 11:54 Weight - Most Recent: 115.6 kg I&O - Last 24 Hours: Intake & Output 09/10/17 09/11/17 09/11/17 22:59 06:59 14:59 Intake Total 800 320 100 Output Total 1180 1200 Balance -380 -880 100 Lab Results Last 24 Hours: Laboratory Results - last 24 hr 09/10/17 09/10/17 09/11/17 Range/Units 17:07 21:09 05:02 WBC 7.55 (4.0-11.0) K/uL RBC 2.96 L (4.50-5.90) M/uL Hgb 8.7 L (13.0-17.0) g/dL Hct 27.4 L (38.0-50.0) % MCV 92.6 (80.0-98.0) fL MCH 29.4 (27.0-32.0) pg MCHC 31.8 (31.0-37.0) g/dL RDW Std Deviation 46.9 (28.0-62.0) fl RDW Coeff of Jaleesa 14 (11.0-15.0) % Plt Count 293 (150-400) K/uL MPV 10.00 (7.40-12.00) fL Neut % (Auto) 66.2 (48.0-80.0) % Lymph % (Auto) 15.1 L (16.0-40.0) % Eagle % (Auto) 13.9 (0.0-15.0) % Eos % (Auto) 4.5 (0.0-7.0) % Baso % (Auto) 0.3 (0.0-1.5) % Neut # (Auto) 5.0 (1.4-5.7) K/uL Lymph # (Auto) 1.1 (0.6-2.4) K/uL Eagle # (Auto) 1.1 H (0.0-0.8) K/uL Eos # (Auto) 0.3 (0.0-0.7) K/uL Baso # (Auto) 0.0 (0.0-0.1) K/uL Nucleated RBC % 0.0 /100WBC Nucleated RBCs # 0 K/uL Sodium (136-146) mmol/L Potassium (3.5-5.1) mmol/L Chloride (98-110) mmol/L Carbon Dioxide (21-31) mmol/L BUN (6.0-23.0) mg/dL Creatinine (0.6-1.5) mg/dL Est Cr Clr Drug Dosing mL/min Estimated GFR (MDRD) ml/min Glucose (60-110) mg/dL POC Glucose 256 H 207 H (60-110) mg/dL Calcium (8.8-10.8) mg/dL 09/11/17 09/11/17 Range/Units 05:02 06:39 WBC (4.0-11.0) K/uL RBC (4.50-5.90) M/uL Hgb (13.0-17.0) g/dL Hct (38.0-50.0) % MCV (80.0-98.0) fL MCH (27.0-32.0) pg MCHC (31.0-37.0) g/dL RDW Std Deviation (28.0-62.0) fl RDW Coeff of Jaleesa (11.0-15.0) % Plt Count (150-400) K/uL MPV (7.40-12.00) fL Neut % (Auto) (48.0-80.0) % Lymph % (Auto) (16.0-40.0) % Eagle % (Auto) (0.0-15.0) % Eos % (Auto) (0.0-7.0) % Baso % (Auto) (0.0-1.5) % Neut # (Auto) (1.4-5.7) K/uL Lymph # (Auto) (0.6-2.4) K/uL Eagle # (Auto) (0.0-0.8) K/uL Eos # (Auto) (0.0-0.7) K/uL Baso # (Auto) (0.0-0.1) K/uL Nucleated RBC % /100WBC Nucleated RBCs # K/uL Sodium 139 (136-146) mmol/L Potassium 4.6 (3.5-5.1) mmol/L Chloride 115 H (98-110) mmol/L Carbon Dioxide 15 L (21-31) mmol/L BUN 34 H (6.0-23.0) mg/dL Creatinine 2.2 H (0.6-1.5) mg/dL Est Cr Clr Drug Dosing 28.72 mL/min Estimated GFR (MDRD) 29.7 ml/min Glucose 161 H (60-110) mg/dL POC Glucose 146 H (60-110) mg/dL Calcium 7.9 L (8.8-10.8) mg/dL Med Orders - Current: Current Medications Acetaminophen (Tylenol) 650 mg PO Q4H PRN PRN Reason: Pain/Fever Last Admin: 09/10/17 14:55 Dose: 650 mg Albuterol (Proventil Hfa) 6.7 gm INH TID PRN PRN Reason: Shortness of Breath Artificial Tears (Refresh Plus 0.5%) 0 each EYEBOTH ASDIRECTED PRN PRN Reason: Dry Eyes Bisacodyl (Dulcolax) 10 mg PO BEDTIME [facility] [place] Last Admin: 09/10/17 21:03 Dose: 10 mg Bupropion HCl (Wellbutrin Sr) 150 mg PO BEDTIME SAUNDRA Last Admin: 09/10/17 21:03 Dose: 150 mg Cetirizine HCl (Zyrtec) 10 mg PO DAILY [facility] [place] Last Admin: 09/11/17 08:12 Dose: 10 mg Cyanocobalamin (Vitamin B12) 1,000 mcg IM Q30D [facility] [place] Last Admin: 09/10/17 09:54 Dose: 1,000 mcg Ferrous Sulfate (Ferrous Sulfate) 325 mg PO DAILY [facility] [place] Last Admin: 09/11/17 08:13 Dose: 325 mg Finasteride (Proscar) 5 mg PO DAILY [facility] [place] Last Admin: 09/11/17 08:12 Dose: 5 mg Fluticasone Propionate (Flonase) 0 gm NASBOTH BID [facility] [place] Last Admin: 09/11/17 08:15 Dose: 1 spray Folic Acid (Folic Acid) 0.5 mg PO QAM [facility] [place] Last Admin: 09/11/17 08:12 Dose: 0.5 mg Gabapentin (Neurontin) 300 mg PO BID [facility] [place] Heparin Sodium (Porcine) (Heparin Sodium) 5,000 units SUBCUT Q8H [facility] [place] Last Admin: 09/11/17 06:34 Dose: 5,000 units Hydromorphone HCl (Dilaudid) 1 mg IVPUSH Q4H PRN PRN Reason: Pain (severe 7-10) Last Admin: 09/11/17 07:24 Dose: 1 mg Sodium Chloride (Normal Saline) 500 mls @ 999 mls/hr IV STAT [facility] [place] Norepinephrine Bitartrate (Norepinephr-0.9% Nacl 4 Mg/250) 250 mls @ 7.5 mls/ hr IV TITRATE SAUNDRA; 2 MCG/MIN PRN Reason: Protocol Last Titration: 09/08/17 17:18 Dose: 0 mcg/min, 0 mls/hr Pantoprazole Sodium 40 mg/ (Sodium Chloride) 10 mls @ 300 mls/hr IVPUSH DAILY [facility] [place] Last Admin: 09/11/17 08:14 Dose: 300 mls/hr Cefotaxime Sodium 2 gm/ Sodium (Chloride) 100 mls @ 200 mls/hr IV Q8H [facility] [place] Last Admin: 09/11/17 07:50 Dose: 200 mls/hr Insulin Aspart (Novolog) 0 unit SUBCUT WITHMEALSANDBED [facility] [place] PRN Reason: Protocol Last Admin: 09/11/17 12:43 Dose: 2 units Ipratropium [place] (Atrovent) 0.5 mg NEB Q6HRRT [facility] [place] Last Admin: 09/11/17 12:34 Dose: 0.5 mg Magnesium Oxide (Magnesium Oxide) 400 mg PO BID [facility] [place] Last Admin: 09/11/17 08:12 Dose: 400 mg Montelukast Sodium (Singulair) 10 mg PO BEDTIME [facility] [place] Last Admin: 09/10/17 21:02 Dose: 10 mg Ondansetron HCl (Zofran) 4 mg IVPUSH Q3H PRN PRN Reason: Nausea Last Admin: 09/09/17 21:50 Dose: 4 mg Budesonide/Formoterol ( Symbicort 160/4.5) 0 each INH BID [facility] [place] Last Admin: 09/11/17 09:42 Dose: Not Given Polyethylene Glycol (Miralax) 17 gm PO DAILY PRN PRN Reason: Constipation Last Admin: 09/09/17 16:16 Dose: 17 gm Ropinirole HCl (Requip) 1 mg PO TID PRN PRN Reason: Pain Last Admin: 09/10/17 17:00 Dose: 1 mg Senna/Docusate Sodium (Senna Plus) 2 tab PO DAILY PRN PRN Reason: Constipation Last Admin: 09/10/17 08:35 Dose: 2 tab Sertraline HCl (Zoloft) 50 mg PO DAILY [facility] [place] Last Admin: 09/11/17 08:12 Dose: 50 mg Sodium Chloride (Saline Flush) 10 ml FLUSH ASDIRECTED PRN PRN Reason: Keep Vein Open Sodium Chloride (Saline Flush) 2.5 ml FLUSH ASDIRECTED PRN PRN Reason: Keep Vein Open Tiotropium [place] (Spiriva Handihaler) 18 mcg INH DAILY [facility] [place] Last Admin: 09/11/17 09:43 Dose: 1 puff Zaleplon (Sonata) 5 mg PO BEDTIME PRN PRN Reason: Insomnia Discontinued Medications Albuterol/Ipratropium (Duoneb 3.0-0.5 Mg/3 Ml) 3 ml NEB Q4HRRT PRN PRN Reason: Wheezing Last Admin: 09/10/17 07:48 Dose: 3 ml Dopamine HCl (Dopamine) 400 mg .ROUTE .STK-MED ONE Stop: 09/07/17 16:41 Ephedrine Sulfate (Ephedrine Sulfate) Confirm Administered Dose 50 mg .ROUTE .STK-MED ONE Stop: 09/07/17 16:40 Ephedrine Sulfate (Ephedrine Sulfate) Confirm Administered Dose 50 mg .ROUTE .STK-MED ONE Stop: 09/07/17 17:13 Etomidate (Amidate) Confirm Administered Dose 40 mg IVPUSH .K-MED ONE Stop: 09/07/17 16:38 Fentanyl (Sublimaze) Confirm Administered Dose 100 mcg .ROUTE .STK-MED ONE Stop: 09/07/17 17:26 Fluticasone Propionate (Flonase) 16 gm .ROUTE .STK-MED ONE Stop: 09/10/17 22:01 Gabapentin (Neurontin) 100 mg PO BEDTIME [facility] [place] Last Admin: 09/09/17 20:15 Dose: 100 mg Gabapentin (Neurontin) 100 mg PO BID [facility] [place] Last Admin: 09/11/17 08:13 Dose: 100 mg Gabapentin (Neurontin) 200 mg PO ONETIME ONE Stop: 09/11/17 10:38 Last Admin: 09/11/17 11:39 Dose: 200 mg Hydromorphone HCl (Dilaudid) 2 mg IVPUSH Q4H PRN PRN Reason: Pain Last Admin: 09/07/17 13:35 Dose: 2 mg Ceftriaxone Sodium/Dextrose 1 (gm/ Premix) 50 mls @ 100 mls/hr IV ONETIME ONE Stop: 09/07/17 09:48 Last Admin: 09/07/17 09:25 Dose: 100 mls/hr Sodium Chloride (Normal Saline) 1,000 mls @ 125 mls/hr IV STAT [facility] [place] Last Admin: 09/07/17 11:40 Dose: 125 mls/hr Ciprofloxacin/Dextrose 400 mg/ (Premix) 200 mls @ 200 mls/hr IV Q12H [facility] [place] Last Admin: 09/07/17 13:34 Dose: 200 mls/hr Sodium Chloride (Normal Saline) Confirm Administered Dose 20 mls @ as directed .ROUTE .STK-MED ONE Stop: 09/07/17 16:40 Tobramycin 120 mg/ Sodium (Chloride) 103 mls @ 206 mls/hr IV ONETIME ONE Stop: 09/07/17 17:59 Last Admin: 09/07/17 17:30 Dose: 206 mls/hr Ampicillin Sodium 2 gm/ Sodium (Chloride) 100 mls @ 200 mls/hr IV Q6H [facility] [place] Last Admin: 09/07/17 20:14 Dose: Not Given Lactated Ringer's (Ringers, Lactated) 1,000 mls @ 200 mls/hr IV ASDIRECTED [facility] [place] Last Admin: 09/07/17 20:00 Dose: 200 mls/hr Tobramycin 120 mg/ Sodium (Chloride) 103 mls @ 103 mls/hr IV Q12H [facility]DR[facility] Cefepime HCl 2 gm/ Premix 50 mls @ 100 mls/hr IV Q12HR [facility] [place] Last Admin: 09/07/17 20:09 Dose: 100 mls/hr Norepinephrine Bitartrate 4 mg (/ Dextrose/Water) 250 mls @ 7.5 mls/hr IV TITRATE SAUNDRA; 2 MCG/MIN PRN Reason: Protocol Lactated Ringer's (Ringers, Lactated) 1,000 mls @ 100 mls/hr IV ASDIRECTED [facility] [place] Last Admin: 09/07/17 22:31 Dose: 100 mls/hr Sodium Chloride (Sodium Chloride 0.45%) 1,000 mls @ 125 mls/hr IV ASDIRECTED [facility] [place] Last Admin: 09/10/17 03:26 Dose: 125 mls/hr Sodium Chloride (Normal Saline) 250 mls @ 500 mls/hr IV ASDIRECTED [facility] [place] Last Admin: 09/08/17 01:50 Dose: 500 mls/hr Tobramycin 120 mg/ Sodium (Chloride) 103 mls @ 103 mls/hr IV Q24H [facility] [place] Last Admin: 09/09/17 18:15 Dose: 103 mls/hr Cefepime HCl 2 gm/ Premix 50 mls @ 100 mls/hr IV Q24H [facility] [place] Last Admin: 09/09/17 20:11 Dose: 100 mls/hr Cefotaxime Sodium 2 gm/ Sodium (Chloride) 100 mls @ 200 mls/hr IV Q8HR [facility] [place] Cefotaxime Sodium 2 gm/ Sodium (Chloride) 100 mls @ 200 mls/hr IV Q8HR [facility] [place] Last Admin: 09/10/17 14:42 Dose: Not Given Insulin Aspart (Novolog) 0 unit SUBCUT Q6H [facility]UNDRA PRN Reason: Protocol Last Admin: 09/07/17 21:53 Dose: 2 units Insulin Aspart (Novolog) 2 unit SUBCUT ONETIME ONE Stop: 09/07/17 23:01 Last Admin: 09/07/17 23:18 Dose: 2 units Insulin Aspart (Novolog) 0 unit SUBCUT Q4H [facility]UNDRA PRN Reason: Protocol Last Admin: 09/10/17 06:40 Dose: Not Given Insulin Aspart (Novolog) 0 unit SUBCUT ACBREAKFASTANDBED [facility] [place] PRN Reason: Protocol Iopamidol (Isovue-200 (41%)) Confirm Administered Dose 50 ml .ROUTE .STK-MED ONE Stop: 09/07/17 15:03 Lidocaine (Xylocaine-Mpf 2%) Confirm Administered Dose 5 ml .ROUTE .STK-MED ONE Stop: 09/07/17 16:38 Midazolam HCl (Versed 1 Mg/Ml) Confirm Administered Dose 2 mg .ROUTE .STK-MED ONE Stop: 09/07/17 16:39 Morphine Sulfate (Morphine) 2 mg IVPUSH ONETIME ONE Stop: 09/09/17 19:16 Last Admin: 09/09/17 19:20 Dose: 2 mg Norepinephrine Bitartrate (Levophed) 4 mg .ROUTE .STK-MED ONE Stop: 09/07/17 16:41 Omeprazole (Omeprazole) 20 mg PO DAILY [facility] [place] Last Admin: 09/10/17 08:35 Dose: 20 mg Phenylephrine HCl (Phenylephrine In Ns 100 Mcg/Ml) Confirm Administered Dose 1 mg .ROUTE .STK-MED ONE Stop: 09/07/17 16:38 Phenylephrine HCl (Phenylephrine In Ns 100 Mcg/Ml) Confirm Administered Dose 1 mg .ROUTE .STK-MED ONE Stop: 09/07/17 17:13 Sodium Bicarbonate (Sodium Bicarbonate 8.4%) 50 meq IVPUSH ONETIME ONE Stop: 09/07/17 22:56 Last Admin: 09/07/17 23:25 Dose: 50 meq - Exam General: Alert, Oriented Lungs: Clear to Auscultation, Normal Respiratory Effort Cardiovascular: Regular Rate, Regular Rhythm GI/Abdominal Exam: Normal Bowel Sounds, Soft, Non-Tender, No Organomegaly, No Distention Extremities: Other (Tenderness to palpation over the dorsal aspect of feet bilaterally without any induration or erythema.) Consult PN Assessment/Plan Procedures: Procedures AIRWAY INHALATION TREATMENT (10/13/16) ALANINE AMINO (ALT) (SGPT) (12/12/14) ANTINUCLEAR ANTIBODIES (12/25/16) ASSAY NEPHELOMETRY NOT SPEC (12/25/16) ASSAY OF BLOOD/URIC ACID (12/25/16) ASSAY OF CALCIUM (07/30/17) ASSAY OF CREATININE (03/04/16) ASSAY OF FERRITIN (12/25/16) ASSAY OF MAGNESIUM (01/09/17) ASSAY OF PARATHORMONE (07/30/17) ASSAY OF PROTEIN URINE (12/25/16) ASSAY OF PSA TOTAL (06/20/15) ASSAY OF TROPONIN QUANT (10/13/16) ASSAY OF URINE CREATININE (12/25/16) CHEST X-RAY 1 VIEW FRONTAL (10/13/16) COMPLEMENT ANTIGEN (12/25/16) COMPLETE CBC AUTOMATED (07/30/17) COMPLETE CBC W/AUTO DIFF WBC (12/25/16) COMPREHEN METABOLIC PANEL (10/13/16) CRITICAL CARE ADDL 30 MIN (09/28/16) CRITICAL CARE FIRST HOUR (09/28/16) ELECTROCARDIOGRAM TRACING (10/13/16) EMERGENCY DEPT VISIT (10/13/16) EMERGENCY DEPT VISIT (05/02/14) EVALUATE PT USE OF INHALER (10/13/16) EXTREMITY STUDY (10/13/16) FLUORESCENT ANTIBODY TITER (12/25/16) GLYCOSYLATED HEMOGLOBIN TEST (06/17/17) HELICOBACTER PYLORI ANTIBODY (04/16/15) HEMATOCRIT (10/13/16) HEMOGLOBIN (10/13/16) HYDRATE IV INFUSION ADD-ON (10/13/16) IMMUNFIX E-PHORSIS/URINE/CSF (12/25/16) IMMUNOASSAY NONANTIBODY (12/25/16) IMMUNOFIX E-PHORESIS SERUM (12/25/16) INSERT EMERGENCY AIRWAY (09/28/16) IRON BINDING TEST (12/25/16) LIPID PANEL (06/13/16) MEDICAL NUTRITION INDIV IN (10/13/16) METABOLIC PANEL TOTAL CA (06/17/17) MICROALBUMIN SEMIQUANT (06/17/17) OFFICE/OUTPATIENT VISIT EST (04/13/17) OFFICE/OUTPATIENT VISIT EST (02/13/16) OFFICE/OUTPATIENT VISIT EST (12/12/14) PPSV23 VACC 2 YRS+ SUBQ/IM (12/12/14) PROTEIN E-PHORESIS SERUM (12/25/16) PROTHROMBIN TIME (11/18/16) PT EVALUATION (10/13/16) RBC SED RATE AUTOMATED (09/21/15) RENAL FUNCTION PANEL (07/30/17) ROUTINE VENIPUNCTURE (07/30/17) THER/PROPH/DIAG INJ IV PUSH (10/13/16) THER/PROPH/DIAG IV INF INIT (09/28/16) THROMBOPLASTIN TIME PARTIAL (10/13/16) TX/PRO/DX INJ NEW DRUG ADDON (09/28/16) URINALYSIS AUTO W/SCOPE (06/17/17) US EXAM ABDO BACK WALL COMP (12/10/16) VASCULAR STUDY (12/10/16) VIT D 1 25-DIHYDROXY (07/30/17) VITAMIN D 25 HYDROXY (12/25/16) X-RAY EXAM OF ELBOW (05/02/14) X-RAY EXAM OF SHOULDER (05/02/14) Problem List Initiated/Reviewed/Updated: Yes My Orders Last 24 Hours: My Active Orders 09/11/17 09:20 Consult to Physical Therapy [PT Evaluation and Treatment] [CONS] Routine 09/11/17 11:36 Remove Astudillo Catheter [Urinary Catheter Removal] [RC] Per Unit Routine Plan: Assessment 1. Gram-negative brittany sepsis - resolved #2. Leukocytosis that has resolved #3. Right foot pain - likely a neuropathy #4. Elevated BUN/creatinine #5. ACS ruled out with negative troponin 3 Plan #1. Increase gabapentin to 300 mg by mouth twice a day #2. Repeat blood cultures #3. Continue IV antibiotics #4. Continue evaluation and treatment with physical therapy #5. Remove Astudillo. Discussed case with Dr. Gamboa, urology, who recommends discharge upon stabilization on 10 days of antibiotics.
--- NOTE | 2017-09-11 13:46 | ECHO ---
The echocardiogram report can be seen in this patient's EMR (electronic medical record) in the Reports section. The report has also been scanned into PACS. DARNELL
[2017-09-11] MEDS: Bisacodyl 5 MG Tab PO SCH (20:29)
[2017-09-11] MEDS: buPROPion 150 MG Tab.SR PO SCH (20:30)
[2017-09-11] MEDS: Montelukast 10 MG Tab PO SCH (20:31)
[2017-09-11] MEDS: Gabapentin 300 MG Cap PO SCH (20:31)
[2017-09-12] MEDS: HYDROmorphone 1 MG/ML Syringe IVPUSH PRN ×3 (03:53→20:35)
[2017-09-12] MEDS: Heparin Sodium 5,000 Units/ML Vial SUBCUT SCH ×3 (06:22→23:24)
[2017-09-12] MEDS: Ipratropium 0.02% 0.5 MG/2.5 ML Neb Soln NEB SCH ×4 (06:41→23:25)
--- NOTE | 2017-09-12 08:56 | PCM.PN ---
- Review of Systems Systems Review Comment:: feeling better, pain in foot improving. does not feel ready to go home today. - Patient Data Vitals - Most Recent: Last Vital Signs Temp 36.9 C 09/12/17 08:00 Pulse 86 09/12/17 08:00 Resp 16 09/12/17 08:00 BP 120/60 09/12/17 08:00 Pulse Ox 90 L 09/12/17 08:00 Weight - Most Recent: 115.6 kg I&O - Last 24 Hours: Intake & Output 09/11/17 09/12/17 09/12/17 22:59 06:59 14:59 Intake Total 1060 250 Output Total 710 850 Balance 350 -600 Lab Results Last 24 Hours: Laboratory Results - last 24 hr 09/11/17 09/11/17 09/11/17 Range/Units 11:44 16:36 20:39 WBC (4.0-11.0) K/uL RBC (4.50-5.90) M/uL Hgb (13.0-17.0) g/dL Hct (38.0-50.0) % MCV (80.0-98.0) fL MCH (27.0-32.0) pg MCHC (31.0-37.0) g/dL RDW Std Deviation (28.0-62.0) fl RDW Coeff of Jaleesa (11.0-15.0) % Plt Count (150-400) K/uL MPV (7.40-12.00) fL Neut % (Auto) (48.0-80.0) % Lymph % (Auto) (16.0-40.0) % [place] % (Auto) (0.0-15.0) % Eos % (Auto) (0.0-7.0) % Baso % (Auto) (0.0-1.5) % Neut # (Auto) (1.4-5.7) K/uL Lymph # (Auto) (0.6-2.4) K/uL [place] # (Auto) (0.0-0.8) K/uL Eos # (Auto) (0.0-0.7) K/uL Baso # (Auto) (0.0-0.1) K/uL Nucleated RBC % /100WBC Nucleated RBCs # K/uL Sodium (136-146) mmol/L Potassium (3.5-5.1) mmol/L Chloride (98-110) mmol/L Carbon Dioxide (21-31) mmol/L BUN (6.0-23.0) mg/dL Creatinine (0.6-1.5) mg/dL Est Cr Clr Drug Dosing mL/min Estimated GFR (MDRD) ml/min Glucose (60-110) mg/dL POC Glucose 172 H 168 H 196 H (60-110) mg/dL Calcium (8.8-10.8) mg/dL 09/12/17 09/12/17 09/12/17 Range/Units 05:59 05:59 06:03 WBC 8.07 (4.0-11.0) K/uL RBC 3.00 L (4.50-5.90) M/uL Hgb 8.8 L (13.0-17.0) g/dL Hct 28.0 L (38.0-50.0) % MCV 93.3 (80.0-98.0) fL MCH 29.3 (27.0-32.0) pg MCHC 31.4 (31.0-37.0) g/dL RDW Std Deviation 47.5 (28.0-62.0) fl RDW Coeff of Jaleesa 14 (11.0-15.0) % Plt Count 332 (150-400) K/uL MPV 9.70 (7.40-12.00) fL Neut % (Auto) 61.9 (48.0-80.0) % Lymph % (Auto) 17.7 (16.0-40.0) % [place] % (Auto) 14.4 (0.0-15.0) % Eos % (Auto) 5.8 (0.0-7.0) % Baso % (Auto) 0.2 (0.0-1.5) % Neut # (Auto) 5.0 (1.4-5.7) K/uL Lymph # (Auto) 1.4 (0.6-2.4) K/uL [place] # (Auto) 1.2 H (0.0-0.8) K/uL Eos # (Auto) 0.5 (0.0-0.7) K/uL Baso # (Auto) 0.0 (0.0-0.1) K/uL Nucleated RBC % 0.0 /100WBC Nucleated RBCs # 0 K/uL Sodium 140 (136-146) mmol/L Potassium 4.6 (3.5-5.1) mmol/L Chloride 114 H (98-110) mmol/L Carbon Dioxide 16 L (21-31) mmol/L BUN 34 H (6.0-23.0) mg/dL Creatinine 2.0 H (0.6-1.5) mg/dL Est Cr Clr Drug Dosing 31.59 mL/min Estimated GFR (MDRD) 33.1 ml/min Glucose 157 H (60-110) mg/dL POC Glucose 141 H (60-110) mg/dL Calcium 8.3 L (8.8-10.8) mg/dL Med Orders - Current: Current Medications Acetaminophen (Tylenol) 650 mg PO Q4H PRN PRN Reason: Pain/Fever Last Admin: 09/10/17 14:55 Dose: 650 mg Albuterol (Proventil Hfa) 6.7 gm INH TID PRN PRN Reason: Shortness of Breath Artificial Tears (Refresh Plus 0.5%) 0 each EYEBOTH ASDIRECTED PRN PRN Reason: Dry Eyes Bisacodyl (Dulcolax) 10 mg PO BEDTIME [facility] Last Admin: 09/11/17 20:29 Dose: 10 mg Bupropion HCl (Wellbutrin Sr) 150 mg PO BEDTIME [facility] Last Admin: 09/11/17 20:30 Dose: 150 mg Cetirizine HCl (Zyrtec) 10 mg PO DAILY [facility] Last Admin: 09/11/17 08:12 Dose: 10 mg Cyanocobalamin (Vitamin B12) 1,000 mcg IM Q30D [facility] Last Admin: 09/10/17 09:54 Dose: 1,000 mcg Ferrous Sulfate (Ferrous Sulfate) 325 mg PO DAILY [facility] Last Admin: 09/11/17 08:13 Dose: 325 mg Finasteride (Proscar) 5 mg PO DAILY [facility] Last Admin: 09/11/17 08:12 Dose: 5 mg Fluticasone Propionate (Flonase) 0 gm NASBOTH BID [facility] Last Admin: 09/11/17 20:31 Dose: 1 spray Folic Acid (Folic Acid) 0.5 mg PO QAM [facility] Last Admin: 09/11/17 08:12 Dose: 0.5 mg Gabapentin (Neurontin) 300 mg PO BID [facility] Last Admin: 09/11/17 20:31 Dose: 300 mg Heparin Sodium (Porcine) (Heparin Sodium) 5,000 units SUBCUT Q8H [facility] Last Admin: 09/12/17 06:22 Dose: 5,000 units Hydromorphone HCl (Dilaudid) 1 mg IVPUSH Q4H PRN PRN Reason: Pain (severe 7-10) Last Admin: 09/12/17 03:53 Dose: 1 mg Sodium Chloride (Normal Saline) 500 mls @ 999 mls/hr IV STAT [facility] Norepinephrine Bitartrate (Norepinephr-0.9% Nacl 4 Mg/250) 250 mls @ 7.5 mls/ hr IV TITRATE [facility]; 2 MCG/MIN PRN Reason: Protocol Last Titration: 09/08/17 17:18 Dose: 0 mcg/min, 0 mls/hr Pantoprazole Sodium 40 mg/ (Sodium Chloride) 10 mls @ 300 mls/hr IVPUSH DAILY [facility] Last Admin: 09/11/17 08:14 Dose: 300 mls/hr Cefotaxime Sodium 2 gm/ Sodium (Chloride) 100 mls @ 200 mls/hr IV Q8H [facility] Last Admin: 09/11/17 23:00 Dose: 200 mls/hr Insulin Aspart (Novolog) 0 unit SUBCUT WITHMEALSANDBED [facility] PRN Reason: Protocol Last Admin: 09/11/17 20:40 Dose: 2 units Ipratropium [place] (Atrovent) 0.5 mg NEB Q6HRRT [facility] Last Admin: 09/12/17 06:41 Dose: 0.5 mg Magnesium Oxide (Magnesium Oxide) 400 mg PO BID [facility] Last Admin: 09/11/17 20:30 Dose: 400 mg Montelukast Sodium (Singulair) 10 mg PO BEDTIME [facility] Last Admin: 09/11/17 20:31 Dose: 10 mg Ondansetron HCl (Zofran) 4 mg IVPUSH Q3H PRN PRN Reason: Nausea Last Admin: 09/09/17 21:50 Dose: 4 mg Budesonide/Formoterol ( Symbicort 160/4.5) 0 each INH BID [facility] Last Admin: 09/11/17 20:43 Dose: Not Given Polyethylene Glycol (Miralax) 17 gm PO DAILY PRN PRN Reason: Constipation Last Admin: 09/09/17 16:16 Dose: 17 gm Ropinirole HCl (Requip) 1 mg PO TID PRN PRN Reason: Pain Last Admin: 09/10/17 17:00 Dose: 1 mg Senna/Docusate Sodium (Senna Plus) 2 tab PO DAILY PRN PRN Reason: Constipation Last Admin: 09/10/17 08:35 Dose: 2 tab Sertraline HCl (Zoloft) 50 mg PO DAILY [facility] Last Admin: 09/11/17 08:12 Dose: 50 mg Sodium Chloride (Saline Flush) 10 ml FLUSH ASDIRECTED PRN PRN Reason: Keep Vein Open Sodium Chloride (Saline Flush) 2.5 ml FLUSH ASDIRECTED PRN PRN Reason: Keep Vein Open Tiotropium [place] (Spiriva Handihaler) 18 mcg INH DAILY [facility] Last Admin: 09/11/17 09:43 Dose: 1 puff Zaleplon (Sonata) 5 mg PO BEDTIME PRN PRN Reason: Insomnia Discontinued Medications Albuterol/Ipratropium (Duoneb 3.0-0.5 Mg/3 Ml) 3 ml NEB Q4HRRT PRN PRN Reason: Wheezing Last Admin: 09/10/17 07:48 Dose: 3 ml Dopamine HCl (Dopamine) 400 mg .ROUTE .STK-MED ONE Stop: 09/07/17 16:41 Ephedrine Sulfate (Ephedrine Sulfate) Confirm Administered Dose 50 mg .ROUTE .STK-MED ONE Stop: 09/07/17 16:40 Ephedrine Sulfate (Ephedrine Sulfate) Confirm Administered Dose 50 mg .ROUTE .STK-MED ONE Stop: 09/07/17 17:13 Etomidate (Amidate) Confirm Administered Dose 40 mg IVPUSH .STK-MED ONE Stop: 09/07/17 16:38 Fentanyl (Sublimaze) Confirm Administered Dose 100 mcg .ROUTE .STK-MED ONE Stop: 09/07/17 17:26 Fluticasone Propionate (Flonase) 16 gm .ROUTE .STK-MED ONE Stop: 09/10/17 22:01 Gabapentin (Neurontin) 100 mg PO BEDTIME [facility] Last Admin: 09/09/17 20:15 Dose: 100 mg Gabapentin (Neurontin) 100 mg PO BID [facility] Last Admin: 09/11/17 08:13 Dose: 100 mg Gabapentin (Neurontin) 200 mg PO ONETIME ONE Stop: 09/11/17 10:38 Last Admin: 09/11/17 11:39 Dose: 200 mg Hydromorphone HCl (Dilaudid) 2 mg IVPUSH Q4H PRN PRN Reason: Pain Last Admin: 09/07/17 13:35 Dose: 2 mg Ceftriaxone Sodium/Dextrose 1 (gm/ Premix) 50 mls @ 100 mls/hr IV ONETIME ONE Stop: 09/07/17 09:48 Last Admin: 09/07/17 09:25 Dose: 100 mls/hr Sodium Chloride (Normal Saline) 1,000 mls @ 125 mls/hr IV STAT [facility] Last Admin: 09/07/17 11:40 Dose: 125 mls/hr Ciprofloxacin/Dextrose 400 mg/ (Premix) 200 mls @ 200 mls/hr IV Q12H [facility] Last Admin: 09/07/17 13:34 Dose: 200 mls/hr Sodium Chloride (Normal Saline) Confirm Administered Dose 20 mls @ as directed .ROUTE .STK-MED ONE Stop: 09/07/17 16:40 Tobramycin 120 mg/ Sodium (Chloride) 103 mls @ 206 mls/hr IV ONETIME ONE Stop: 09/07/17 17:59 Last Admin: 09/07/17 17:30 Dose: 206 mls/hr Ampicillin Sodium 2 gm/ Sodium (Chloride) 100 mls @ 200 mls/hr IV Q6H [facility] Last Admin: 09/07/17 20:14 Dose: Not Given Lactated Ringer's (Ringers, Lactated) 1,000 mls @ 200 mls/hr IV ASDIRECTED [facility] Last Admin: 09/07/17 20:00 Dose: 200 mls/hr Tobramycin 120 mg/ Sodium (Chloride) 103 mls @ 103 mls/hr IV Q12H [facility] Cefepime HCl 2 gm/ Premix 50 mls @ 100 mls/hr IV Q12HR [facility] Last Admin: 09/07/17 20:09 Dose: 100 mls/hr Norepinephrine Bitartrate 4 mg (/ Dextrose/Water) 250 mls @ 7.5 mls/hr IV TITRATE [facility]; 2 MCG/MIN PRN Reason: Protocol Lactated Ringer's (Ringers, Lactated) 1,000 mls @ 100 mls/hr IV ASDIRECTED [facility] Last Admin: 09/07/17 22:31 Dose: 100 mls/hr Sodium Chloride (Sodium Chloride 0.45%) 1,000 mls @ 125 mls/hr IV ASDIRECTED [facility] Last Admin: 09/10/17 03:26 Dose: 125 mls/hr Sodium Chloride (Normal Saline) 250 mls @ 500 mls/hr IV ASDIRECTED [facility] Last Admin: 09/08/17 01:50 Dose: 500 mls/hr Tobramycin 120 mg/ Sodium (Chloride) 103 mls @ 103 mls/hr IV Q24H [facility] Last Admin: 09/09/17 18:15 Dose: 103 mls/hr Cefepime HCl 2 gm/ Premix 50 mls @ 100 mls/hr IV Q24H [facility] Last Admin: 09/09/17 20:11 Dose: 100 mls/hr Cefotaxime Sodium 2 gm/ Sodium (Chloride) 100 mls @ 200 mls/hr IV Q8HR [facility] Cefotaxime Sodium 2 gm/ Sodium (Chloride) 100 mls @ 200 mls/hr IV Q8HR [facility] Last Admin: 09/10/17 14:42 Dose: Not Given Insulin Aspart (Novolog) 0 unit SUBCUT Q6H [facility] PRN Reason: Protocol Last Admin: 09/07/17 21:53 Dose: 2 units Insulin Aspart (Novolog) 2 unit SUBCUT ONETIME ONE Stop: 09/07/17 23:01 Last Admin: 09/07/17 23:18 Dose: 2 units Insulin Aspart (Novolog) 0 unit SUBCUT Q4H [facility] PRN Reason: Protocol Last Admin: 09/10/17 06:40 Dose: Not Given Insulin Aspart (Novolog) 0 unit SUBCUT ACBREAKFASTANDBED [facility] PRN Reason: Protocol Iopamidol (Isovue-200 (41%)) Confirm Administered Dose 50 ml .ROUTE .STK-MED ONE Stop: 09/07/17 15:03 Lidocaine (Xylocaine-Mpf 2%) Confirm Administered Dose 5 ml .ROUTE .STK-MED ONE Stop: 09/07/17 16:38 Midazolam HCl (Versed 1 Mg/Ml) Confirm Administered Dose 2 mg .ROUTE .STK-MED ONE Stop: 09/07/17 16:39 Morphine Sulfate (Morphine) 2 mg IVPUSH ONETIME ONE Stop: 09/09/17 19:16 Last Admin: 09/09/17 19:20 Dose: 2 mg Norepinephrine Bitartrate (Levophed) 4 mg .ROUTE .STK-MED ONE Stop: 09/07/17 16:41 Omeprazole (Omeprazole) 20 mg PO DAILY [facility] Last Admin: 09/10/17 08:35 Dose: 20 mg Phenylephrine HCl (Phenylephrine In Ns 100 Mcg/Ml) Confirm Administered Dose 1 mg .ROUTE .STK-MED ONE Stop: 09/07/17 16:38 Phenylephrine HCl (Phenylephrine In Ns 100 Mcg/Ml) Confirm Administered Dose 1 mg .ROUTE .STK-MED ONE Stop: 09/07/17 17:13 Sodium Bicarbonate (Sodium Bicarbonate 8.4%) 50 meq IVPUSH ONETIME ONE Stop: 09/07/17 22:56 Last Admin: 09/07/17 23:25 Dose: 50 meq - Exam General: Alert, Oriented HEENT: Mucous Membr. Moist/[place] Lungs: Clear to Auscultation, Normal Respiratory Effort Cardiovascular: Regular Rate, Regular Rhythm Extremities: No Pedal Edema Skin: Warm, Dry, Intact Neurological: No New Focal Deficit - Problem List Review Problem List Initiated/Reviewed/Updated: Yes - Plan Plan:: 72 yo male with pyelonephritis with obstructive stone s/p j-stents placement. Ecoli pyleonephritis/bacteremia: continue cefotaxime, foot pain: likely diabetic neuropathy , continue gabapentin DM: on ssi Dispo: continue PT, likely discharge in 1-2 days.
[2017-09-12] MEDS: Tiotropium Inhaler 18 MCG Inhalation Powder Cap Kit of 5 INH SCH (09:13)
[2017-09-12] MEDS: Folic Acid 1 MG Tab PO SCH (09:55)
[2017-09-12] MEDS: Ferrous Sulfate 325 MG Tab PO SCH (09:56)
[2017-09-12] MEDS: Sertraline 50 MG Tab PO SCH (09:56)
[2017-09-12] MEDS: Finasteride 5 MG Tab PO SCH (09:56)
[2017-09-12] MEDS: Magnesium Oxide 400 MG Tab PO SCH ×2 (09:56→20:37)
[2017-09-12] MEDS: Pantoprazole 40 MG in Sodium Chloride 0.9% 10 ML IVPUSH SCH (09:56)
[2017-09-12] MEDS: Cetirizine 10 MG Tab PO SCH (09:56)
[2017-09-12] MEDS: Fluticasone Propionate Nasal Spray 16 GM Bottle NASBOTH SCH ×2 (09:56→20:37)
[2017-09-12] MEDS: Gabapentin 300 MG Cap PO SCH ×2 (09:56→20:37)
[2017-09-12] MEDS: Insulin Aspart 100 Units/ML 3 ML Pen SUBCUT SCH ×4 (09:57→20:47)
[2017-09-12] MEDS: BUDESONIDE INH SCH ×2 (10:23→20:38)
[2017-09-12] MEDS: FORMOTEROL INH SCH ×2 (10:23→20:38)
[2017-09-12] MEDS: Montelukast 10 MG Tab PO SCH (20:37)
[2017-09-12] MEDS: Bisacodyl 5 MG Tab PO SCH (20:37)
[2017-09-12] MEDS: buPROPion 150 MG Tab.SR PO SCH (20:37)
[2017-09-13] MEDS: rOPINIRole 1 MG Tab PO PRN ×2 (01:32→16:35)
[2017-09-13] MEDS: HYDROmorphone 1 MG/ML Syringe IVPUSH PRN (05:34)
[2017-09-13] MEDS: Ipratropium 0.02% 0.5 MG/2.5 ML Neb Soln NEB SCH ×3 (05:34→17:43)
[2017-09-13] MEDS: Heparin Sodium 5,000 Units/ML Vial SUBCUT SCH ×3 (06:07→22:40)
[2017-09-13] MEDS: Insulin Aspart 100 Units/ML 3 ML Pen SUBCUT SCH ×4 (07:27→21:43)
[2017-09-13] MEDS: Folic Acid 1 MG Tab PO SCH (08:01)
[2017-09-13] MEDS: Cetirizine 10 MG Tab PO SCH (08:02)
[2017-09-13] MEDS: Ferrous Sulfate 325 MG Tab PO SCH (08:02)
[2017-09-13] MEDS: Gabapentin 300 MG Cap PO SCH ×2 (08:02→21:32)
[2017-09-13] MEDS: Magnesium Oxide 400 MG Tab PO SCH ×2 (08:02→21:32)
[2017-09-13] MEDS: Finasteride 5 MG Tab PO SCH (08:02)
[2017-09-13] MEDS: Sertraline 50 MG Tab PO SCH (08:02)
[2017-09-13] MEDS: Fluticasone Propionate Nasal Spray 16 GM Bottle NASBOTH SCH ×2 (08:03→21:38)
[2017-09-13] MEDS ORDERED: Albuterol 8 GM Inhaler INH PRN (08:34)
[2017-09-13] MEDS: BUDESONIDE INH SCH ×2 (09:23→21:45)
[2017-09-13] MEDS: FORMOTEROL INH SCH ×2 (09:23→21:45)
[2017-09-13] MEDS: Tiotropium Inhaler 18 MCG Inhalation Powder Cap Kit of 5 INH SCH (09:23)
--- NOTE | 2017-09-13 09:59 | PCM.PN ---
- General Info Date of Service: 09/13/17 Subjective Update: 72 yo M currently on our service for urosepsis that has shown clinical signs of improvement. Currently, the patient complains of bilateral foot pain. He does have a history of gout. Also complains of a rash in his groin on left side that he noticed. Not itchy, not painful, no bleeding or discharge. Otherwise, denies fevers, chills, dysuria, flank pain. - Review of Systems General: Reports: Other (see HPI) - Patient Data Vitals - Most Recent: Last Vital Signs Temp 37.1 C 09/13/17 08:00 Pulse 86 09/13/17 08:00 Resp 20 09/13/17 08:00 BP 150/70 H 09/13/17 08:00 Pulse Ox 91 L 09/13/17 08:00 Weight - Most Recent: 113.5 kg I&O - Last 24 Hours: Intake & Output 09/12/17 09/13/17 09/13/17 23:59 06:59 14:59 Intake Total Output Total Balance Lab Results Last 24 Hours: Laboratory Results - last 24 hr 09/12/17 09/12/17 09/12/17 Range/Units 11:23 16:32 20:33 WBC (4.0-11.0) K/uL RBC (4.50-5.90) M/uL Hgb (13.0-17.0) g/dL Hct (38.0-50.0) % MCV (80.0-98.0) fL MCH (27.0-32.0) pg MCHC (31.0-37.0) g/dL RDW Std Deviation (28.0-62.0) fl RDW Coeff of Jaleesa (11.0-15.0) % Plt Count (150-400) K/uL MPV (7.40-12.00) fL Neut % (Auto) (48.0-80.0) % Lymph % (Auto) (16.0-40.0) % Laurens % (Auto) (0.0-15.0) % Eos % (Auto) (0.0-7.0) % Baso % (Auto) (0.0-1.5) % Neut # (Auto) (1.4-5.7) K/uL Lymph # (Auto) (0.6-2.4) K/uL [place] # (Auto) (0.0-0.8) K/uL Eos # (Auto) (0.0-0.7) K/uL Baso # (Auto) (0.0-0.1) K/uL Nucleated RBC % /100WBC Nucleated RBCs # K/uL Sodium (136-146) mmol/L Potassium (3.5-5.1) mmol/L Chloride (98-110) mmol/L Carbon Dioxide (21-31) mmol/L BUN (6.0-23.0) mg/dL Creatinine (0.6-1.5) mg/dL Est Cr Clr Drug Dosing mL/min Estimated GFR (MDRD) ml/min Glucose (60-110) mg/dL POC Glucose 173 H 174 H 152 H (60-110) mg/dL Calcium (8.8-10.8) mg/dL 09/13/17 09/13/17 09/13/17 Range/Units 05:16 05:16 07:15 WBC 9.14 (4.0-11.0) K/uL RBC 2.88 L (4.50-5.90) M/uL Hgb 8.6 L (13.0-17.0) g/dL Hct 26.7 L (38.0-50.0) % MCV 92.7 (80.0-98.0) fL MCH 29.9 (27.0-32.0) pg MCHC 32.2 (31.0-37.0) g/dL RDW Std Deviation 47.1 (28.0-62.0) fl RDW Coeff of Jaleesa 14 (11.0-15.0) % Plt Count 373 (150-400) K/uL MPV 9.60 (7.40-12.00) fL Neut % (Auto) 67.8 (48.0-80.0) % Lymph % (Auto) 15.5 L (16.0-40.0) % [place]rens % (Auto) 10.9 (0.0-15.0) % Eos % (Auto) 5.6 (0.0-7.0) % Baso % (Auto) 0.2 (0.0-1.5) % Neut # (Auto) 6.2 H (1.4-5.7) K/uL Lymph # (Auto) 1.4 (0.6-2.4) K/uL [place] # (Auto) 1.0 H (0.0-0.8) K/uL Eos # (Auto) 0.5 (0.0-0.7) K/uL Baso # (Auto) 0.0 (0.0-0.1) K/uL Nucleated RBC % 0.0 /100WBC Nucleated RBCs # 0 K/uL Sodium 140 (136-146) mmol/L Potassium 4.2 (3.5-5.1) mmol/L Chloride 114 H (98-110) mmol/L Carbon Dioxide 17 L (21-31) mmol/L BUN 32 H (6.0-23.0) mg/dL Creatinine 1.7 H (0.6-1.5) mg/dL Est Cr Clr Drug Dosing 37.17 mL/min Estimated GFR (MDRD) 39.9 ml/min Glucose 154 H (60-110) mg/dL POC Glucose 146 H (60-110) mg/dL Calcium 8.3 L (8.8-10.8) mg/dL 09/13/17 Range/Units 08:25 WBC (4.0-11.0) K/uL RBC (4.50-5.90) M/uL Hgb (13.0-17.0) g/dL Hct (38.0-50.0) % MCV (80.0-98.0) fL MCH (27.0-32.0) pg MCHC (31.0-37.0) g/dL RDW Std Deviation (28.0-62.0) fl RDW Coeff of Jaleesa (11.0-15.0) % Plt Count (150-400) K/uL MPV (7.40-12.00) fL Neut % (Auto) (48.0-80.0) % Lymph % (Auto) (16.0-40.0) % Laurens % (Auto) (0.0-15.0) % Eos % (Auto) (0.0-7.0) % Baso % (Auto) (0.0-1.5) % Neut # (Auto) (1.4-5.7) K/uL Lymph # (Auto) (0.6-2.4) K/uL [place]rens # (Auto) (0.0-0.8) K/uL Eos # (Auto) (0.0-0.7) K/uL Baso # (Auto) (0.0-0.1) K/uL Nucleated RBC % /100WBC Nucleated RBCs # K/uL Sodium (136-146) mmol/L Potassium (3.5-5.1) mmol/L Chloride (98-110) mmol/L Carbon Dioxide (21-31) mmol/L BUN (6.0-23.0) mg/dL Creatinine (0.6-1.5) mg/dL Est Cr Clr Drug Dosing mL/min Estimated GFR (MDRD) ml/min Glucose (60-110) mg/dL POC Glucose 162 H (60-110) mg/dL Calcium (8.8-10.8) mg/dL Satnam Results Last 24 Hours: Microbiology 09/11/17 10:35 Aerobic Blood Culture - Preliminary Blood - Venous NO GROWTH AFTER 1 DAY Anaerobic Blood Culture - Preliminary NO GROWTH AFTER 1 DAY 09/11/17 10:47 Aerobic Blood Culture - Preliminary Blood - Venous - Lab Draw NO GROWTH AFTER 1 DAY Anaerobic Blood Culture - Preliminary NO GROWTH AFTER 1 DAY Med Orders - Current: Current Medications Acetaminophen (Tylenol) 650 mg PO Q4H PRN PRN Reason: Pain/Fever Last Admin: 09/10/17 14:55 Dose: 650 mg Albuterol (Ventolin Hfa) 8 gm INH TID PRN PRN Reason: Shortness of Breath Artificial Tears (Refresh Plus 0.5%) 0 each EYEBOTH ASDIRECTED PRN PRN Reason: Dry Eyes Bisacodyl (Dulcolax) 10 mg PO BEDTIME REPLACED BY [facility] Last Admin: 09/12/17 20:37 Dose: 10 mg Bupropion HCl (Wellbutrin Sr) 150 mg PO BEDTIME REPLACED BY [facility] Last Admin: 09/12/17 20:37 Dose: 150 mg Cetirizine HCl (Zyrtec) 10 mg PO DAILY REPLACED BY [facility] Last Admin: 09/13/17 08:02 Dose: 10 mg Ciprofloxacin (Ciprofloxacin Hcl) 500 mg PO BID REPLACED BY [facility] Cyanocobalamin (Vitamin B12) 1,000 mcg IM Q30D REPLACED BY [facility] Last Admin: 09/10/17 09:54 Dose: 1,000 mcg Ferrous Sulfate (Ferrous Sulfate) 325 mg PO DAILY REPLACED BY [facility] Last Admin: 09/13/17 08:02 Dose: 325 mg Finasteride (Proscar) 5 mg PO DAILY REPLACED BY [facility] Last Admin: 09/13/17 08:02 Dose: 5 mg Fluticasone Propionate (Flonase) 0 gm NASBOTH BID REPLACED BY [facility] Last Admin: 09/13/17 08:03 Dose: 1 spray Folic Acid (Folic Acid) 0.5 mg PO QAM REPLACED BY [facility] Last Admin: 09/13/17 08:01 Dose: 0.5 mg Gabapentin (Neurontin) 300 mg PO BID REPLACED BY [facility] Last Admin: 09/13/17 08:02 Dose: 300 mg Heparin Sodium (Porcine) (Heparin Sodium) 5,000 units SUBCUT Q8H REPLACED BY [facility] Last Admin: 09/13/17 06:07 Dose: 5,000 units Sodium Chloride (Normal Saline) 500 mls @ 999 mls/hr IV STAT REPLACED BY [facility] Norepinephrine Bitartrate (Norepinephr-0.9% Nacl 4 Mg/250) 250 mls @ 7.5 mls/ hr IV TITRATE SAUNDRA; 2 MCG/MIN PRN Reason: Protocol Last Titration: 09/08/17 17:18 Dose: 0 mcg/min, 0 mls/hr Pantoprazole Sodium 40 mg/ (Sodium Chloride) 10 mls @ 300 mls/hr IVPUSH DAILY REPLACED BY [facility] Last Admin: 09/12/17 09:56 Dose: 300 mls/hr Insulin Aspart (Novolog) 0 unit SUBCUT WITHMEALSANDBED REPLACED BY [facility] PRN Reason: Protocol Last Admin: 09/13/17 07:27 Dose: 2 units Ipratropium [place] (Atrovent) 0.5 mg NEB Q6HRRT REPLACED BY [facility] Last Admin: 09/13/17 05:34 Dose: 0.5 mg Magnesium Oxide (Magnesium Oxide) 400 mg PO BID REPLACED BY [facility] Last Admin: 09/13/17 08:02 Dose: 400 mg Montelukast Sodium (Singulair) 10 mg PO BEDTIME REPLACED BY [facility] Last Admin: 09/12/17 20:37 Dose: 10 mg Nystatin (Nystatin Crm) 0 gm TOP TID REPLACED BY [facility] Ondansetron HCl (Zofran) 4 mg IVPUSH Q3H PRN PRN Reason: Nausea Last Admin: 09/09/17 21:50 Dose: 4 mg Budesonide/Formoterol ( Symbicort 160/4.5) 0 each INH BID REPLACED BY [facility] Last Admin: 09/13/17 09:23 Dose: 2 each Polyethylene Glycol (Miralax) 17 gm PO DAILY PRN PRN Reason: Constipation Last Admin: 09/09/17 16:16 Dose: 17 gm Prednisone (Prednisone) 40 mg PO DAILY REPLACED BY [facility] Ropinirole HCl (Requip) 1 mg PO TID PRN PRN Reason: Pain Last Admin: 09/13/17 01:32 CDT Dose: 1 mg Senna/Docusate Sodium (Senna Plus) 2 tab PO DAILY PRN PRN Reason: Constipation Last Admin: 09/10/17 08:35 Dose: 2 tab Sertraline HCl (Zoloft) 50 mg PO DAILY REPLACED BY [facility] Last Admin: 09/13/17 08:02 Dose: 50 mg Sodium Chloride (Saline Flush) 10 ml FLUSH ASDIRECTED PRN PRN Reason: Keep Vein Open Sodium Chloride (Saline Flush) 2.5 ml FLUSH ASDIRECTED PRN PRN Reason: Keep Vein Open Tiotropium [place] (Spiriva Handihaler) 18 mcg INH DAILY REPLACED BY [facility] Last Admin: 09/13/17 09:23 Dose: 1 puff Zaleplon (Sonata) 5 mg PO BEDTIME PRN PRN Reason: Insomnia Discontinued Medications Albuterol (Proventil Hfa) 6.7 gm INH TID PRN PRN Reason: Shortness of Breath Albuterol/Ipratropium (Duoneb 3.0-0.5 Mg/3 Ml) 3 ml NEB Q4HRRT PRN PRN Reason: Wheezing Last Admin: 09/10/17 07:48 Dose: 3 ml Dopamine HCl (Dopamine) 400 mg .ROUTE .STK-MED ONE Stop: 09/07/17 16:41 Ephedrine Sulfate (Ephedrine Sulfate) Confirm Administered Dose 50 mg .ROUTE .STK-MED ONE Stop: 09/07/17 16:40 Ephedrine Sulfate (Ephedrine Sulfate) Confirm Administered Dose 50 mg .ROUTE .STK-MED ONE Stop: 09/07/17 17:13 Etomidate (Amidate) Confirm Administered Dose 40 mg IVPUSH .STK-MED ONE Stop: 09/07/17 16:38 Fentanyl (Sublimaze) Confirm Administered Dose 100 mcg .ROUTE .STK-MED ONE Stop: 09/07/17 17:26 Fluticasone Propionate (Flonase) 16 gm .ROUTE .STK-MED ONE Stop: 09/10/17 22:01 Gabapentin (Neurontin) 100 mg PO BEDTIME REPLACED BY [facility] Last Admin: 09/09/17 20:15 Dose: 100 mg Gabapentin (Neurontin) 100 mg PO BID REPLACED BY [facility] Last Admin: 09/11/17 08:13 Dose: 100 mg Gabapentin (Neurontin) 200 mg PO ONETIME ONE Stop: 09/11/17 10:38 Last Admin: 09/11/17 11:39 Dose: 200 mg Hydromorphone HCl (Dilaudid) 2 mg IVPUSH Q4H PRN PRN Reason: Pain Last Admin: 09/07/17 13:35 Dose: 2 mg Hydromorphone HCl (Dilaudid) 1 mg IVPUSH Q4H PRN PRN Reason: Pain (severe 7-10) Last Admin: 09/13/17 05:34 Dose: 1 mg Ceftriaxone Sodium/Dextrose 1 (gm/ Premix) 50 mls @ 100 mls/hr IV ONETIME ONE Stop: 09/07/17 09:48 Last Admin: 09/07/17 09:25 Dose: 100 mls/hr Sodium Chloride (Normal Saline) 1,000 mls @ 125 mls/hr IV STAT REPLACED BY [facility] Last Admin: 09/07/17 11:40 Dose: 125 mls/hr Ciprofloxacin/Dextrose 400 mg/ (Premix) 200 mls @ 200 mls/hr IV Q12H REPLACED BY [facility] Last Admin: 09/07/17 13:34 Dose: 200 mls/hr Sodium Chloride (Normal Saline) Confirm Administered Dose 20 mls @ as directed .ROUTE .STK-MED ONE Stop: 09/07/17 16:40 Tobramycin 120 mg/ Sodium (Chloride) 103 mls @ 206 mls/hr IV ONETIME ONE Stop: 09/07/17 17:59 Last Admin: 09/07/17 17:30 Dose: 206 mls/hr Ampicillin Sodium 2 gm/ Sodium (Chloride) 100 mls @ 200 mls/hr IV Q6H REPLACED BY [facility] Last Admin: 09/07/17 20:14 Dose: Not Given Lactated Ringer's (Ringers, Lactated) 1,000 mls @ 200 mls/hr IV ASDIRECTED REPLACED BY [facility] Last Admin: 09/07/17 20:00 Dose: 200 mls/hr Tobramycin 120 mg/ Sodium (Chloride) 103 mls @ 103 mls/hr IV Q12H SAUNDRA Cefepime HCl 2 gm/ Premix 50 mls @ 100 mls/hr IV Q12HR REPLACED BY [facility] Last Admin: 09/07/17 20:09 Dose: 100 mls/hr Norepinephrine Bitartrate 4 mg (/ Dextrose/Water) 250 mls @ 7.5 mls/hr IV TITRATE SAUNDRA; 2 MCG/MIN PRN Reason: Protocol Lactated Ringer's (Ringers, Lactated) 1,000 mls @ 100 mls/hr IV ASDIRECTED REPLACED BY [facility] Last Admin: 09/07/17 22:31 Dose: 100 mls/hr Sodium Chloride (Sodium Chloride 0.45%) 1,000 mls @ 125 mls/hr IV ASDIRECTED REPLACED BY [facility] Last Admin: 09/10/17 03:26 Dose: 125 mls/hr Sodium Chloride (Normal Saline) 250 mls @ 500 mls/hr IV ASDIRECTED REPLACED BY [facility] Last Admin: 09/08/17 01:50 Dose: 500 mls/hr Tobramycin 120 mg/ Sodium (Chloride) 103 mls @ 103 mls/hr IV Q24H REPLACED BY [facility] Last Admin: 09/09/17 18:15 Dose: 103 mls/hr Cefepime HCl 2 gm/ Premix 50 mls @ 100 mls/hr IV Q24H REPLACED BY [facility] Last Admin: 09/09/17 20:11 Dose: 100 mls/hr Cefotaxime Sodium 2 gm/ Sodium (Chloride) 100 mls @ 200 mls/hr IV Q8HR REPLACED BY [facility] Cefotaxime Sodium 2 gm/ Sodium (Chloride) 100 mls @ 200 mls/hr IV Q8HR REPLACED BY [facility] Last Admin: 09/10/17 14:42 Dose: Not Given Cefotaxime Sodium 2 gm/ Sodium (Chloride) 100 mls @ 200 mls/hr IV Q8H REPLACED BY [facility] Last Admin: 09/13/17 08:00 Dose: 200 mls/hr Insulin Aspart (Novolog) 0 unit SUBCUT Q6H REPLACED BY [facility] PRN Reason: Protocol Last Admin: 09/07/17 21:53 Dose: 2 units Insulin Aspart (Novolog) 2 unit SUBCUT ONETIME ONE Stop: 09/07/17 23:01 Last Admin: 09/07/17 23:18 Dose: 2 units Insulin Aspart (Novolog) 0 unit SUBCUT Q4H REPLACED BY [facility] PRN Reason: Protocol Last Admin: 09/10/17 06:40 Dose: Not Given Insulin Aspart (Novolog) 0 unit SUBCUT ACBREAKFASTANDBED REPLACED BY [facility] PRN Reason: Protocol Iopamidol (Isovue-200 (41%)) Confirm Administered Dose 50 ml .ROUTE .STK-MED ONE Stop: 09/07/17 15:03 Lidocaine (Xylocaine-Mpf 2%) Confirm Administered Dose 5 ml .ROUTE .STK-MED ONE Stop: 09/07/17 16:38 Midazolam HCl (Versed 1 Mg/Ml) Confirm Administered Dose 2 mg .ROUTE .STK-MED ONE Stop: 09/07/17 16:39 Morphine Sulfate (Morphine) 2 mg IVPUSH ONETIME ONE Stop: 09/09/17 19:16 Last Admin: 09/09/17 19:20 Dose: 2 mg Norepinephrine Bitartrate (Levophed) 4 mg .ROUTE .STK-MED ONE Stop: 09/07/17 16:41 Omeprazole (Omeprazole) 20 mg PO DAILY REPLACED BY [facility] Last Admin: 09/10/17 08:35 Dose: 20 mg Phenylephrine HCl (Phenylephrine In Ns 100 Mcg/Ml) Confirm Administered Dose 1 mg .ROUTE .STK-MED ONE Stop: 09/07/17 16:38 Phenylephrine HCl (Phenylephrine In Ns 100 Mcg/Ml) Confirm Administered Dose 1 mg .ROUTE .STK-MED ONE Stop: 09/07/17 17:13 Sodium Bicarbonate (Sodium Bicarbonate 8.4%) 50 meq IVPUSH ONETIME ONE Stop: 09/07/17 22:56 Last Admin: 09/07/17 23:25 Dose: 50 meq - Exam General: Alert, Oriented, Cooperative, No Acute Distress HEENT: Pupils Equal, Pupils Reactive Neck: Supple, Trachea Midline Lungs: Clear to Auscultation, Normal Respiratory Effort Cardiovascular: Regular Rate, Regular Rhythm GI/Abdominal Exam: Normal Bowel Sounds, Soft, Non-Tender Extremities: Other (left great toe appears to be erythematous and painful to palpation. ) - Problem List Review Problem List Initiated/Reviewed/Updated: Yes - My Orders Last 24 Hours: My Active Orders 09/13/17 08:34 Albuterol [Ventolin HFA] 8 gm INH TID PRN 09/13/17 09:30 predniSONE 40 mg PO DAILY 09/13/17 14:00 Nystatin [Nystatin Crm] See Dose Instructions TOP TID 09/13/17 21:00 Ciprofloxacin [Ciprofloxacin HCl] 500 mg PO BID - Assessment Assessment:: 1. UTI Sepsis s/p stent placement - improved 2. Acute on chronic kidney injury. Pyelonephritis secondary to nephrolithiasis - improved 3. Insulin dependent diabetes mellitus 4. Gram negative rods septicemia - improved 5. Elevated creatinine - improved 6. Hyperkalemia - improved 7. Leukocytosis - improved 8. Foot alejandre consistent with Gout 9. Tinea Cruris - Plan Plan:: Plan: #1. Prednisone 40mg daily for gout #2. Switch to PO Ciprofloxacin 500mg BID #3. Topical nystatin for fungal infection #4. anticipate discharge tomorrow.
[2017-09-13] MEDS: Pantoprazole 40 MG in Sodium Chloride 0.9% 10 ML IVPUSH SCH (10:21)
[2017-09-13] MEDS: predniSONE 20 MG Tab PO SCH (10:33)
[2017-09-13] MEDS: Nystatin Crm 30 GM Tube TOP SCH ×2 (13:27→21:50)
[2017-09-13] MEDS: Ciprofloxacin 500 MG Tab PO SCH (21:31)
[2017-09-13] MEDS: Bisacodyl 5 MG Tab PO SCH (21:32)
[2017-09-13] MEDS: buPROPion 150 MG Tab.SR PO SCH (21:33)
[2017-09-13] MEDS: Montelukast 10 MG Tab PO SCH (21:33)
[2017-09-13] MEDS: Acetaminophen 325 MG Tab PO PRN (21:36)
[2017-09-14] MEDS: Ipratropium 0.02% 0.5 MG/2.5 ML Neb Soln NEB SCH ×2 (00:16→06:49)
[2017-09-14] MEDS: rOPINIRole 1 MG Tab PO PRN ×2 (00:24→08:35)
[2017-09-14] MEDS: Acetaminophen 325 MG Tab PO PRN (06:36)
[2017-09-14] MEDS: Nystatin Crm 30 GM Tube TOP SCH ×2 (06:37→08:46)
[2017-09-14] MEDS: Heparin Sodium 5,000 Units/ML Vial SUBCUT SCH (06:39)
[2017-09-14] MEDS: Insulin Aspart 100 Units/ML 3 ML Pen SUBCUT SCH (07:15)
[2017-09-14] MEDS ORDERED: Pantoprazole 40 MG Tab.CR PO SCH ×2 (07:30→09:00)
[2017-09-14] MEDS: Ciprofloxacin 500 MG Tab PO SCH (08:35)
[2017-09-14] MEDS: predniSONE 20 MG Tab PO SCH (08:35)
[2017-09-14] MEDS: Finasteride 5 MG Tab PO SCH (08:35)
[2017-09-14] MEDS: Folic Acid 1 MG Tab PO SCH (08:35)
[2017-09-14] MEDS: Sertraline 50 MG Tab PO SCH (08:35)
[2017-09-14] MEDS: Gabapentin 300 MG Cap PO SCH (08:35)
[2017-09-14] MEDS: Ferrous Sulfate 325 MG Tab PO SCH (08:35)
[2017-09-14] MEDS: Magnesium Oxide 400 MG Tab PO SCH (08:35)
[2017-09-14] MEDS: Fluticasone Propionate Nasal Spray 16 GM Bottle NASBOTH SCH (08:36)
[2017-09-14] MEDS: Cetirizine 10 MG Tab PO SCH (08:36)
[2017-09-14 09:05] VITALS: BP 147/71
[2017-09-14] MEDS: BUDESONIDE INH SCH (10:44)
[2017-09-14] MEDS: FORMOTEROL INH SCH (10:44)
[2017-09-14] MEDS: Tiotropium Inhaler 18 MCG Inhalation Powder Cap Kit of 5 INH SCH (10:45)
--- NOTE | 2017-09-14 11:22 | PCM.DCSUM1 ---
<Boris Wilson - Last Filed: 09/14/17 11:23> Discharge Summary - Hospital Course Free Text/Narrative:: Admission date September 07, 2017 Discharge date September 14, 2017 Admission diagnosis #1. Septic shock #2. Pyelonephritis secondary to an obstructive stone #3. Gram-negative brittany bacteremia #4. History of congestive heart failure #5. History of hypertension #6. History of diabetes 2 Discharge diagnosis #1. Septic shock resolved #2. Pyelonephritis with an obstructive stones status post double J stent placement #3. Gram-negative brittany bacteremia resolved #4. History of congestive heart failure #5. Gout #6. Ambulatory dysfunction secondary to #5 #7. History of peripheral neuropathy #8 history of hypertension, diabetes Hospital course 72-year-old male with a past history of CHF who presented to the emergency room on September 07 complaining of flank pain was found to have an obstructive stone bilaterally. This patient was then brought in for surgery and I will stent placement and admitted to the floor for septic shock secondary to pyelonephritis with blood cultures growing gram-negative rods. Patient was initially placed into ICU, with management for both his ongoing pyelonephritis, placed on a levophed drip, and started on tobramycin along with cefepime. This patient was then weaned off of the pressors, and de-escalated on his antibiotic coverage with reassuring laboratory results and clinical improvement. Patient then transferred to the regular floor for further IV antibiotics and monitoring along with management for his congestive heart failure. He was then de- escalated to cefotaxime based on culture sensitivities. A central line was then removed, IV antibiotics were then stopped and he was switched to by mouth ciprofloxacin as per urology recommendation which he is to go home on to complete a 10 day course. This patient then continued to complain of foot pain that resulted in his inability to walk without a great deal of discomfort. A uric acid level was obtained and was elevated, along with a clinical correlation likelihood of this being gout was high. He is then placed on 40 mg of by mouth prednisone for this. Because of his ambulatory dysfunction, he is in need of a walker. He has mobility to prevent symptoms from doing daily living activities in the home, he is able to safely use the walker and the functional mobility deficit can be sufficiently resolved with the use of a walker. Use of a cane has been ruled out and is not an appropriate alternative. He is to follow-up with his primary care provider within one week. He is to get home health. This patient is homebound as he is able to ambulate less than 20 feet before becoming short of breath and needing to stop for a rest break. He is also unable to safely navigate stairs without assistance secondary to his foot pain. He will be followed by Dr. Christianson, his primary care provider once discharged from the hospital. He is also to follow-up with Dr. Gamboa, urology. Discharge medications #1. Ciprofloxacin 500 mg twice a day 9 days #2. By mouth prednisone 40 mg daily 4 days #3. Continue home medications - Discharge Data Discharge Date: 09/14/17 Discharge Disposition: Home, W Home Health Agency Condition: Good - Patient Summary/Data Consults: Consultations 09/09/17 12:30 Consult to Physical Therapy [PT Evaluation and Treatment] [CONS] Routine 09/11/17 09:20 Consult to Physical Therapy [PT Evaluation and Treatment] [CONS] Routine - Patient Instructions Diet: Regular Diet as Tolerated Activity: As Tolerated Notify Provider of: Fever, Increased Pain, Swelling and Redness, Nausea and/or Vomiting - Discharge Plan Prescriptions/Med Rec: Ciprofloxacin [Ciprofloxacin HCl] 500 mg PO BID 9 Days #18 tablet Gabapentin [Neurontin] 300 mg PO BID 30 Days #60 cap Prednisone [IJD: predniSONE] 40 mg PO DAILY 4 Days #4 tablet Home Medications: Home Meds Acetaminophen [Tylenol] 2 tab PO Q4H PRN 02/08/16 [History] Zolpidem Tartrate 5 mg PO BEDTIME PRN 02/08/16 [History] amLODIPine [Norvasc] 5 mg PO DAILY 02/08/16 [History] Albuterol [Proventil HFA] 6.7 gm INH TID PRN 10/13/16 [History] Doxazosin Mesylate [Cardura] 8 mg PO BEDTIME 10/13/16 [History] Ferrous Sulfate [Ferosul] 325 mg PO DAILY 10/13/16 [History] Finasteride 5 mg PO DAILY 10/13/16 [History] Fluticasone Propionate [Flonase] 1 spray NASBOTH BID 10/13/16 [History] Ipratropium [Atrovent] 0.5 mg NEB Q6HRRT 10/13/16 [History] Montelukast [Singulair] 10 mg PO BEDTIME 10/13/16 [History] Omeprazole 20 mg PO DAILY 10/13/16 [History] Sertraline HCl 50 mg PO DAILY 10/13/16 [History] Tiotropium [Spiriva HandiHaler] 18 mcg INH DAILY 10/13/16 [History] buPROPion HCl [Wellbutrin SR] 150 mg PO BEDTIME 10/13/16 [History] buPROPion HCl [Wellbutrin SR] 300 mg PO DAILY 10/13/16 [History] rOPINIRole HCl [Requip] 1 mg PO TID PRN 10/13/16 [History] Metoprolol Succinate [Toprol XL] 200 mg PO DAILY 10/14/16 [History] Bisacodyl [Dulcolax] 10 mg PO BEDTIME 09/08/17 [History] Budesonide/Formoterol Fumarate [Symbicort 160-4.5 Mcg Inhaler] 2 puff INH BID [History] Calcium Carbonate [Calcium Antacid] 860 mg PO BID 09/08/17 [History] Cetirizine [ZyrTEC] 10 mg PO DAILY 09/08/17 [History] Cholecalciferol (Vitamin D3) [Vitamin D3] 1,000 unit PO DAILY 09/08/17 [History] Cyanocobalamin (Vitamin B-12) [Vitamin B-12] 1 ml IM Q30D 09/08/17 [History] Folic Acid 0.5 mg PO QAM 09/08/17 [History] Furosemide 20 mg PO DAILY 09/08/17 [History] Insulin Isophane NPH, Human [NovoLIN N] 6 - 8 units SUBCUT QPM 09/08/17 [History ] Insulin Isophane NPH, Human [NovoLIN N] 10 - 14 units SUBCUT QAM 09/08/17 [ History] Magnesium Oxide 400 mg PO BID 09/08/17 [History] [place]-3/DHA/Epa/Fish Oil [Fish Oil 500 MG Softgel] 500 mg PO DAILY 09/08/17 [ History] Sodium Bicarbonate 1,300 mg PO BID 09/08/17 [History] Ciprofloxacin [Ciprofloxacin HCl] 500 mg PO BID 9 Days #18 tablet 09/14/17 [Rx] Gabapentin [Neurontin] 300 mg PO BID 30 Days #60 cap 09/14/17 [Rx] Prednisone [IJD: predniSONE] 40 mg PO DAILY 4 Days #4 tablet 09/14/17 [Rx] Patient Handouts: Gabapentin capsules or tablets, Kidney Stones, [id number], Urosepsis, Prednisone tablets, Ciprofloxacin tablets Forms: ED Department Discharge Referrals: Juan Daniel Christianson MD [Primary Care Provider] - 09/18/17 10:00 am Nadja Ramires MD [Physician] - 10/08/17 1:00 pm - Discharge Summary/Plan Comment DC Time >30 min.: No Discharge Summary/Plan Comment: Admission date September 07, 2017 Discharge date September 14, 2017 Admission diagnosis #1. Septic shock #2. Pyelonephritis secondary to an obstructive stone #3. Gram-negative brittany bacteremia #4. History of congestive heart failure #5. History of hypertension #6. History of diabetes 2 Discharge diagnosis #1. Septic shock resolved #2. Pyelonephritis with an obstructive stones status post double J stent placement #3. Gram-negative brittany bacteremia resolved #4. History of congestive heart failure #5. Gout #6. Ambulatory dysfunction secondary to #5 #7. History of peripheral neuropathy #8 history of hypertension, diabetes Hospital course 72-year-old male with a past history of CHF who presented to the emergency room on September 07 complaining of flank pain was found to have an obstructive stone bilaterally. This patient was then brought in for surgery and I will stent placement and admitted to the floor for septic shock secondary to pyelonephritis with blood cultures growing gram-negative rods. Patient was initially placed into ICU, with management for both his ongoing pyelonephritis, placed on a levophed drip, and started on tobramycin along with cefepime. This patient was then weaned off of the pressors, and de-escalated on his antibiotic coverage with reassuring laboratory results and clinical improvement. Patient then transferred to the regular floor for further IV antibiotics and monitoring along with management for his congestive heart failure. He was then de- escalated to cefotaxime based on culture sensitivities. A central line was then removed, IV antibiotics were then stopped and he was switched to by mouth ciprofloxacin as per urology recommendation which he is to go home on to complete a 10 day course. This patient then continued to complain of foot pain that resulted in his inability to walk without a great deal of discomfort. A uric acid level was obtained and was elevated, along with a clinical correlation likelihood of this being gout was high. He is then placed on 40 mg of by mouth prednisone for this. Because of his ambulatory dysfunction, he is in need of a walker. He has mobility to prevent symptoms from doing daily living activities in the home, he is able to safely use the walker and the functional mobility deficit can be sufficiently resolved with the use of a walker. Use of a cane has been ruled out and is not an appropriate alternative. He is to follow-up with his primary care provider within one week. He is to get home health. This patient is homebound as he is able to ambulate less than 20 feet before becoming short of breath and needing to stop for a rest break. He is also unable to safely navigate stairs without assistance secondary to his foot pain. He will be followed by Dr. Christianson, his primary care provider once discharged from the hospital. He is also to follow-up with Dr. Ramires, urology. Discharge medications #1. Ciprofloxacin 500 mg twice a day 9 days #2. By mouth prednisone 40 mg daily 4 days #3. Continue home medications - Patient Data Vitals - Most Recent: Last Vital Signs Temp 36.6 C 09/14/17 08:00 Pulse 90 09/14/17 08:00 Resp 18 09/14/17 08:00 BP 147/71 H 09/14/17 08:00 Pulse Ox 95 09/14/17 08:00 Weight - Most Recent: 111.13 kg I&O - Last 24 hours: Intake & Output 09/13/17 09/14/17 09/14/17 22:59 06:59 14:59 Intake Total 840 1000 Output Total 1025 1375 Balance -185 -375 Lab Results - Last 24 hrs: Laboratory Results - last 24 hr 09/13/17 09/13/17 09/13/17 Range/Units 12:37 17:26 22:41 POC Glucose 147 H 258 H 260 H (60-110) mg/dL ABILIO Results - Last 24 hrs: Microbiology 09/11/17 10:35 Aerobic Blood Culture - Preliminary Blood - Venous NO GROWTH AFTER 3 DAYS Anaerobic Blood Culture - Preliminary NO GROWTH AFTER 3 DAYS 09/11/17 10:47 Aerobic Blood Culture - Preliminary Blood - Venous - Lab Draw NO GROWTH AFTER 3 DAYS Anaerobic Blood Culture - Preliminary NO GROWTH AFTER 3 DAYS Med Orders - Current: Current Medications Acetaminophen (Tylenol) 650 mg PO Q4H PRN PRN Reason: Pain/Fever Last Admin: 09/14/17 06:36 Dose: 650 mg Albuterol (Ventolin Hfa) 8 gm INH TID PRN PRN Reason: Shortness of Breath Artificial Tears (Refresh Plus 0.5%) 0 each EYEBOTH ASDIRECTED PRN PRN Reason: Dry Eyes Bisacodyl (Dulcolax) 10 mg PO BEDTIME [facility] Last Admin: 09/13/17 21:32 Dose: 10 mg Bupropion HCl (Wellbutrin Sr) 150 mg PO BEDTIME [facility] Last Admin: 09/13/17 21:33 Dose: 150 mg Cetirizine HCl (Zyrtec) 10 mg PO DAILY [facility] Last Admin: 09/14/17 08:36 Dose: 10 mg Ciprofloxacin (Ciprofloxacin Hcl) 500 mg PO BID [facility] Last Admin: 09/14/17 08:35 Dose: 500 mg Cyanocobalamin (Vitamin B12) 1,000 mcg IM Q30D [facility] Last Admin: 09/10/17 09:54 Dose: 1,000 mcg Ferrous Sulfate (Ferrous Sulfate) 325 mg PO DAILY [facility] Last Admin: 09/14/17 08:35 Dose: 325 mg Finasteride (Proscar) 5 mg PO DAILY [facility] Last Admin: 09/14/17 08:35 Dose: 5 mg Fluticasone Propionate (Flonase) 0 gm NASBOTH BID [facility] Last Admin: 09/14/17 08:36 Dose: 1 spray Folic Acid (Folic Acid) 0.5 mg PO QAM [facility] Last Admin: 09/14/17 08:35 Dose: 0.5 mg Gabapentin (Neurontin) 300 mg PO BID [facility] Last Admin: 09/14/17 08:35 Dose: 300 mg Heparin Sodium (Porcine) (Heparin Sodium) 5,000 units SUBCUT Q8H [facility] Last Admin: 09/14/17 06:39 Dose: 5,000 units Sodium Chloride (Normal Saline) 500 mls @ 999 mls/hr IV STAT [facility] Norepinephrine Bitartrate (Norepinephr-0.9% Nacl 4 Mg/250) 250 mls @ 7.5 mls/ hr IV TITRATE SAUNDRA; 2 MCG/MIN PRN Reason: Protocol Last Titration: 09/08/17 17:18 Dose: 0 mcg/min, 0 mls/hr Insulin Aspart (Novolog) 0 unit SUBCUT WITHMEALSANDBED [facility] PRN Reason: Protocol Last Admin: 09/14/17 07:15 Dose: 2 units Ipratropium [place] (Atrovent) 0.5 mg NEB Q6HRRT [facility] Last Admin: 09/14/17 06:49 Dose: 0.5 mg Magnesium Oxide (Magnesium Oxide) 400 mg PO BID [facility] Last Admin: 09/14/17 08:35 Dose: 400 mg Montelukast Sodium (Singulair) 10 mg PO BEDTIME [facility] Last Admin: 09/13/17 21:33 Dose: 10 mg Nystatin (Nystatin Crm) 0 gm TOP TID [facility] Last Admin: 09/14/17 08:46 Dose: 1 applic Ondansetron HCl (Zofran) 4 mg IVPUSH Q3H PRN PRN Reason: Nausea Last Admin: 09/09/17 21:50 Dose: 4 mg Pantoprazole Sodium (Protonix) 40 mg PO DAILY [facility] Last Admin: 09/14/17 08:35 Dose: 40 mg Budesonide/Formoterol ( Symbicort 160/4.5) 0 each INH BID [facility] Last Admin: 09/14/17 10:44 Dose: Not Given Polyethylene Glycol (Miralax) 17 gm PO DAILY PRN PRN Reason: Constipation Last Admin: 09/09/17 16:16 Dose: 17 gm Prednisone (Prednisone) 40 mg PO DAILY [facility] Last Admin: 09/14/17 08:35 Dose: 40 mg Ropinirole HCl (Requip) 1 mg PO TID PRN PRN Reason: Pain Last Admin: 09/14/17 08:35 Dose: 1 mg Senna/Docusate Sodium (Senna Plus) 2 tab PO DAILY PRN PRN Reason: Constipation Last Admin: 09/10/17 08:35 Dose: 2 tab Sertraline HCl (Zoloft) 50 mg PO DAILY [facility] Last Admin: 09/14/17 08:35 Dose: 50 mg Sodium Chloride (Saline Flush) 10 ml FLUSH ASDIRECTED PRN PRN Reason: Keep Vein Open Sodium Chloride (Saline Flush) 2.5 ml FLUSH ASDIRECTED PRN PRN Reason: Keep Vein Open Tiotropium [place] (Spiriva Handihaler) 18 mcg INH DAILY [facility] Last Admin: 09/14/17 10:45 Dose: Not Given Zaleplon (Sonata) 5 mg PO BEDTIME PRN PRN Reason: Insomnia Discontinued Medications Albuterol (Proventil Hfa) 6.7 gm INH TID PRN PRN Reason: Shortness of Breath Albuterol/Ipratropium (Duoneb 3.0-0.5 Mg/3 Ml) 3 ml NEB Q4HRRT PRN PRN Reason: Wheezing Last Admin: 09/10/17 07:48 Dose: 3 ml Dopamine HCl (Dopamine) 400 mg .ROUTE .STK-MED ONE Stop: 09/07/17 16:41 Ephedrine Sulfate (Ephedrine Sulfate) Confirm Administered Dose 50 mg .ROUTE .STK-MED ONE Stop: 09/07/17 16:40 Ephedrine Sulfate (Ephedrine Sulfate) Confirm Administered Dose 50 mg .ROUTE .STK-MED ONE Stop: 09/07/17 17:13 Etomidate (Amidate) Confirm Administered Dose 40 mg IVPUSH .STK-MED ONE Stop: 09/07/17 16:38 Fentanyl (Sublimaze) Confirm Administered Dose 100 mcg .ROUTE .STK-MED ONE Stop: 09/07/17 17:26 Fluticasone Propionate (Flonase) 16 gm .ROUTE .STK-MED ONE Stop: 09/10/17 22:01 Gabapentin (Neurontin) 100 mg PO BEDTIME [facility] Last Admin: 09/09/17 20:15 Dose: 100 mg Gabapentin (Neurontin) 100 mg PO BID [facility] Last Admin: 09/11/17 08:13 Dose: 100 mg Gabapentin (Neurontin) 200 mg PO ONETIME ONE Stop: 09/11/17 10:38 Last Admin: 09/11/17 11:39 Dose: 200 mg Hydromorphone HCl (Dilaudid) 2 mg IVPUSH Q4H PRN PRN Reason: Pain Last Admin: 09/07/17 13:35 Dose: 2 mg Hydromorphone HCl (Dilaudid) 1 mg IVPUSH Q4H PRN PRN Reason: Pain (severe 7-10) Last Admin: 09/13/17 05:34 Dose: 1 mg Ceftriaxone Sodium/Dextrose 1 (gm/ Premix) 50 mls @ 100 mls/hr IV ONETIME ONE Stop: 09/07/17 09:48 Last Admin: 09/07/17 09:25 Dose: 100 mls/hr Sodium Chloride (Normal Saline) 1,000 mls @ 125 mls/hr IV STAT SAUNDRA Last Admin: 09/07/17 11:40 Dose: 125 mls/hr Ciprofloxacin/Dextrose 400 mg/ (Premix) 200 mls @ 200 mls/hr IV Q12H SAUNDRA Last Admin: 09/07/17 13:34 Dose: 200 mls/hr Sodium Chloride (Normal Saline) Confirm Administered Dose 20 mls @ as directed .ROUTE .STK-MED ONE Stop: 09/07/17 16:40 Tobramycin 120 mg/ Sodium (Chloride) 103 mls @ 206 mls/hr IV ONETIME ONE Stop: 09/07/17 17:59 Last Admin: 09/07/17 17:30 Dose: 206 mls/hr Ampicillin Sodium 2 gm/ Sodium (Chloride) 100 mls @ 200 mls/hr IV Q6H SAUNDRA Last Admin: 09/07/17 20:14 Dose: Not Given Lactated Ringer's (Ringers, Lactated) 1,000 mls @ 200 mls/hr IV ASDIRECTED SAUNDRA Last Admin: 09/07/17 20:00 Dose: 200 mls/hr Tobramycin 120 mg/ Sodium (Chloride) 103 mls @ 103 mls/hr IV Q12H SAUNDRA Cefepime HCl 2 gm/ Premix 50 mls @ 100 mls/hr IV Q12HR SAUNDRA Last Admin: 09/07/17 20:09 Dose: 100 mls/hr Norepinephrine Bitartrate 4 mg (/ Dextrose/Water) 250 mls @ 7.5 mls/hr IV TITRATE SAUNDRA; 2 MCG/MIN PRN Reason: Protocol Lactated Ringer's (Ringers, Lactated) 1,000 mls @ 100 mls/hr IV ASDIRECTED SAUNDRA Last Admin: 09/07/17 22:31 Dose: 100 mls/hr Pantoprazole Sodium 40 mg/ (Sodium Chloride) 10 mls @ 300 mls/hr IVPUSH DAILY SAUNDRA Last Admin: 09/13/17 10:21 Dose: 300 mls/hr Sodium Chloride (Sodium Chloride 0.45%) 1,000 mls @ 125 mls/hr IV ASDIRECTED SAUNDRA Last Admin: 09/10/17 03:26 Dose: 125 mls/hr Sodium Chloride (Normal Saline) 250 mls @ 500 mls/hr IV ASDIRECTED [facility] Last Admin: 09/08/17 01:50 Dose: 500 mls/hr Tobramycin 120 mg/ Sodium (Chloride) 103 mls @ 103 mls/hr IV Q24H [facility] Last Admin: 09/09/17 18:15 Dose: 103 mls/hr Cefepime HCl 2 gm/ Premix 50 mls @ 100 mls/hr IV Q24H [facility] Last Admin: 09/09/17 20:11 Dose: 100 mls/hr Cefotaxime Sodium 2 gm/ Sodium (Chloride) 100 mls @ 200 mls/hr IV Q8HR [facility] Cefotaxime Sodium 2 gm/ Sodium (Chloride) 100 mls @ 200 mls/hr IV Q8HR [facility] Last Admin: 09/10/17 14:42 Dose: Not Given Cefotaxime Sodium 2 gm/ Sodium (Chloride) 100 mls @ 200 mls/hr IV Q8H [facility] Last Admin: 09/13/17 08:00 Dose: 200 mls/hr Insulin Aspart (Novolog) 0 unit SUBCUT Q6H [facility] PRN Reason: Protocol Last Admin: 09/07/17 21:53 Dose: 2 units Insulin Aspart (Novolog) 2 unit SUBCUT ONETIME ONE Stop: 09/07/17 23:01 Last Admin: 09/07/17 23:18 Dose: 2 units Insulin Aspart (Novolog) 0 unit SUBCUT Q4H [facility] PRN Reason: Protocol Last Admin: 09/10/17 06:40 Dose: Not Given Insulin Aspart (Novolog) 0 unit SUBCUT ACBREAKFASTANDBED [facility] PRN Reason: Protocol Iopamidol (Isovue-200 (41%)) Confirm Administered Dose 50 ml .ROUTE .STK-MED ONE Stop: 09/07/17 15:03 Lidocaine (Xylocaine-Mpf 2%) Confirm Administered Dose 5 ml .ROUTE .STK-MED ONE Stop: 09/07/17 16:38 Midazolam HCl (Versed 1 Mg/Ml) Confirm Administered Dose 2 mg .ROUTE .STK-MED ONE Stop: 09/07/17 16:39 Morphine Sulfate (Morphine) 2 mg IVPUSH ONETIME ONE Stop: 09/09/17 19:16 Last Admin: 09/09/17 19:20 Dose: 2 mg Norepinephrine Bitartrate (Levophed) 4 mg .ROUTE .STK-MED ONE Stop: 09/07/17 16:41 Omeprazole (Omeprazole) 20 mg PO DAILY SAUNDRA Last Admin: 09/10/17 08:35 Dose: 20 mg Phenylephrine HCl (Phenylephrine In Ns 100 Mcg/Ml) Confirm Administered Dose 1 mg .ROUTE .STK-MED ONE Stop: 09/07/17 16:38 Phenylephrine HCl (Phenylephrine In Ns 100 Mcg/Ml) Confirm Administered Dose 1 mg .ROUTE .STK-MED ONE Stop: 09/07/17 17:13 Sodium Bicarbonate (Sodium Bicarbonate 8.4%) 50 meq IVPUSH ONETIME ONE Stop: 09/07/17 22:56 Last Admin: 09/07/17 23:25 Dose: 50 meq *Q Meaningful Use (DIS) - VTE *Q VTE Criteria *Q: - Stroke *Q Stroke Criteria *Q: - AMI *Q AMI Criteria *Q: <Jonathon Pham - Last Filed: 09/14/17 14:20> Discharge Summary - Patient Summary/Data Consults: Consultations 09/09/17 12:30 Consult to Physical Therapy [PT Evaluation and Treatment] [CONS] Routine 09/11/17 09:20 Consult to Physical Therapy [PT Evaluation and Treatment] [CONS] Routine - Patient Data Vitals - Most Recent: Last Vital Signs Temp 36.6 C 09/14/17 08:00 Pulse 90 09/14/17 08:00 Resp 18 09/14/17 08:00 BP 147/71 H 09/14/17 08:00 Pulse Ox 95 09/14/17 08:00 I&O - Last 24 hours: Intake & Output 09/13/17 09/14/17 09/14/17 22:59 06:59 14:59 Intake Total 840 1000 540 Output Total 1025 1375 1000 Balance -571 -139 -447 Lab Results - Last 24 hrs: Laboratory Results - last 24 hr 09/13/17 09/13/17 09/13/17 Range/Units 12:37 17:26 22:41 POC Glucose 147 H 258 H 260 H (60-110) mg/dL 09/14/17 Range/Units 06:43 POC Glucose 187 H (60-110) mg/dL ABILIO Results - Last 24 hrs: Microbiology 09/11/17 10:35 Aerobic Blood Culture - Preliminary Blood - Venous NO GROWTH AFTER 3 DAYS Anaerobic Blood Culture - Preliminary NO GROWTH AFTER 3 DAYS 09/11/17 10:47 Aerobic Blood Culture - Preliminary Blood - Venous - Lab Draw NO GROWTH AFTER 3 DAYS Anaerobic Blood Culture - Preliminary NO GROWTH AFTER 3 DAYS Med Orders - Current: Current Medications Discontinued Medications Acetaminophen (Tylenol) 650 mg PO Q4H PRN PRN Reason: Pain/Fever Last Admin: 09/14/17 06:36 Dose: 650 mg Albuterol (Proventil Hfa) 6.7 gm INH TID PRN PRN Reason: Shortness of Breath Albuterol (Ventolin Hfa) 8 gm INH TID PRN PRN Reason: Shortness of Breath Albuterol/Ipratropium (Duoneb 3.0-0.5 Mg/3 Ml) 3 ml NEB Q4HRRT PRN PRN Reason: Wheezing Last Admin: 09/10/17 07:48 Dose: 3 ml Artificial Tears (Refresh Plus 0.5%) 0 each EYEBOTH ASDIRECTED PRN PRN Reason: Dry Eyes Bisacodyl (Dulcolax) 10 mg PO BEDTIME [facility] Last Admin: 09/13/17 21:32 Dose: 10 mg Bupropion HCl (Wellbutrin Sr) 150 mg PO BEDTIME [facility] Last Admin: 09/13/17 21:33 Dose: 150 mg Cetirizine HCl (Zyrtec) 10 mg PO DAILY [facility] Last Admin: 09/14/17 08:36 Dose: 10 mg Ciprofloxacin (Ciprofloxacin Hcl) 500 mg PO BID [facility] Last Admin: 09/14/17 08:35 Dose: 500 mg Cyanocobalamin (Vitamin B12) 1,000 mcg IM Q30D [facility] Last Admin: 09/10/17 09:54 Dose: 1,000 mcg Dopamine HCl (Dopamine) 400 mg .ROUTE .STK-MED ONE Stop: 09/07/17 16:41 Ephedrine Sulfate (Ephedrine Sulfate) Confirm Administered Dose 50 mg .ROUTE .STK-MED ONE Stop: 09/07/17 16:40 Ephedrine Sulfate (Ephedrine Sulfate) Confirm Administered Dose 50 mg .ROUTE .STK-MED ONE Stop: 09/07/17 17:13 Etomidate (Amidate) Confirm Administered Dose 40 mg IVPUSH .STK-MED ONE Stop: 09/07/17 16:38 Fentanyl (Sublimaze) Confirm Administered Dose 100 mcg .ROUTE .STK-MED ONE Stop: 09/07/17 17:26 Ferrous Sulfate (Ferrous Sulfate) 325 mg PO DAILY [facility] Last Admin: 09/14/17 08:35 Dose: 325 mg Finasteride (Proscar) 5 mg PO DAILY [facility] Last Admin: 09/14/17 08:35 Dose: 5 mg Fluticasone Propionate (Flonase) 0 gm NASBOTH BID [facility] Last Admin: 09/14/17 08:36 Dose: 1 spray Fluticasone Propionate (Flonase) 16 gm .ROUTE .STK-MED ONE Stop: 09/10/17 22:01 Folic Acid (Folic Acid) 0.5 mg PO QAM [facility] Last Admin: 09/14/17 08:35 Dose: 0.5 mg Gabapentin (Neurontin) 100 mg PO BEDTIME [facility] Last Admin: 09/09/17 20:15 Dose: 100 mg Gabapentin (Neurontin) 100 mg PO BID [facility] Last Admin: 09/11/17 08:13 Dose: 100 mg Gabapentin (Neurontin) 300 mg PO BID [facility] Last Admin: 09/14/17 08:35 Dose: 300 mg Gabapentin (Neurontin) 200 mg PO ONETIME ONE Stop: 09/11/17 10:38 Last Admin: 09/11/17 11:39 Dose: 200 mg Heparin Sodium (Porcine) (Heparin Sodium) 5,000 units SUBCUT Q8H [facility] Last Admin: 09/14/17 06:39 Dose: 5,000 units Hydromorphone HCl (Dilaudid) 2 mg IVPUSH Q4H PRN PRN Reason: Pain Last Admin: 09/07/17 13:35 Dose: 2 mg Hydromorphone HCl (Dilaudid) 1 mg IVPUSH Q4H PRN PRN Reason: Pain (severe 7-10) Last Admin: 09/13/17 05:34 Dose: 1 mg Ceftriaxone Sodium/Dextrose 1 (gm/ Premix) 50 mls @ 100 mls/hr IV ONETIME ONE Stop: 09/07/17 09:48 Last Admin: 09/07/17 09:25 Dose: 100 mls/hr Sodium Chloride (Normal Saline) 1,000 mls @ 125 mls/hr IV STAT [facility] Last Admin: 09/07/17 11:40 Dose: 125 mls/hr Ciprofloxacin/Dextrose 400 mg/ (Premix) 200 mls @ 200 mls/hr IV Q12H [facility]UNDRA Last Admin: 09/07/17 13:34 Dose: 200 mls/hr Sodium Chloride (Normal Saline) 500 mls @ 999 mls/hr IV STAT SAUNDRA Sodium Chloride (Normal Saline) Confirm Administered Dose 20 mls @ as directed .ROUTE .STK-MED ONE Stop: 09/07/17 16:40 Tobramycin 120 mg/ Sodium (Chloride) 103 mls @ 206 mls/hr IV ONETIME ONE Stop: 09/07/17 17:59 Last Admin: 09/07/17 17:30 Dose: 206 mls/hr Ampicillin Sodium 2 gm/ Sodium (Chloride) 100 mls @ 200 mls/hr IV Q6H SAUNDRA Last Admin: 09/07/17 20:14 Dose: Not Given Lactated Ringer's (Ringers, Lactated) 1,000 mls @ 200 mls/hr IV ASDIRECTED SAUNDRA Last Admin: 09/07/17 20:00 Dose: 200 mls/hr Tobramycin 120 mg/ Sodium (Chloride) 103 mls @ 103 mls/hr IV Q12H SAUNDRA Cefepime HCl 2 gm/ Premix 50 mls @ 100 mls/hr IV Q12HR [facility]UNDRA Last Admin: 09/07/17 20:09 Dose: 100 mls/hr Norepinephrine Bitartrate 4 mg (/ Dextrose/Water) 250 mls @ 7.5 mls/hr IV TITRATE SAUNDRA; 2 MCG/MIN PRN Reason: Protocol Lactated Ringer's (Ringers, Lactated) 1,000 mls @ 100 mls/hr IV ASDIRECTED SAUNDRA Last Admin: 09/07/17 22:31 Dose: 100 mls/hr Norepinephrine Bitartrate (Norepinephr-0.9% Nacl 4 Mg/250) 250 mls @ 7.5 mls/ hr IV TITRATE SAUNDRA; 2 MCG/MIN PRN Reason: Protocol Last Titration: 09/08/17 17:18 Dose: 0 mcg/min, 0 mls/hr Pantoprazole Sodium 40 mg/ (Sodium Chloride) 10 mls @ 300 mls/hr IVPUSH DAILY SAUNDRA Last Admin: 09/13/17 10:21 Dose: 300 mls/hr Sodium Chloride (Sodium Chloride 0.45%) 1,000 mls @ 125 mls/hr IV ASDIRECTED [facility] Last Admin: 09/10/17 03:26 Dose: 125 mls/hr Sodium Chloride (Normal Saline) 250 mls @ 500 mls/hr IV ASDIRECTED [facility] Last Admin: 09/08/17 01:50 Dose: 500 mls/hr Tobramycin 120 mg/ Sodium (Chloride) 103 mls @ 103 mls/hr IV Q24H [facility] Last Admin: 09/09/17 18:15 Dose: 103 mls/hr Cefepime HCl 2 gm/ Premix 50 mls @ 100 mls/hr IV Q24H [facility] Last Admin: 09/09/17 20:11 Dose: 100 mls/hr Cefotaxime Sodium 2 gm/ Sodium (Chloride) 100 mls @ 200 mls/hr IV Q8HR [facility] Cefotaxime Sodium 2 gm/ Sodium (Chloride) 100 mls @ 200 mls/hr IV Q8HR [facility] Last Admin: 09/10/17 14:42 Dose: Not Given Cefotaxime Sodium 2 gm/ Sodium (Chloride) 100 mls @ 200 mls/hr IV Q8H [facility] Last Admin: 09/13/17 08:00 Dose: 200 mls/hr Insulin Aspart (Novolog) 0 unit SUBCUT Q6H [facility] PRN Reason: Protocol Last Admin: 09/07/17 21:53 Dose: 2 units Insulin Aspart (Novolog) 2 unit SUBCUT ONETIME ONE Stop: 09/07/17 23:01 Last Admin: 09/07/17 23:18 Dose: 2 units Insulin Aspart (Novolog) 0 unit SUBCUT Q4H [facility] PRN Reason: Protocol Last Admin: 09/10/17 06:40 Dose: Not Given Insulin Aspart (Novolog) 0 unit SUBCUT ACBREAKFASTANDBED [facility] PRN Reason: Protocol Insulin Aspart (Novolog) 0 unit SUBCUT WITHMEALSANDBED [facility] PRN Reason: Protocol Last Admin: 09/14/17 07:15 Dose: 2 units Iopamidol (Isovue-200 (41%)) Confirm Administered Dose 50 ml .ROUTE .STK-MED ONE Stop: 09/07/17 15:03 Ipratropium [place] (Atrovent) 0.5 mg NEB Q6HRRT [facility] Last Admin: 09/14/17 06:49 Dose: 0.5 mg Lidocaine (Xylocaine-Mpf 2%) Confirm Administered Dose 5 ml .ROUTE .[facility] ONE Stop: 09/07/17 16:38 Magnesium Oxide (Magnesium Oxide) 400 mg PO BID [facility] Last Admin: 09/14/17 08:35 Dose: 400 mg Midazolam HCl (Versed 1 Mg/Ml) Confirm Administered Dose 2 mg .ROUTE .[facility] ONE Stop: 09/07/17 16:39 Montelukast Sodium (Singulair) 10 mg PO BEDTIME [facility] Last Admin: 09/13/17 21:33 Dose: 10 mg Morphine Sulfate (Morphine) 2 mg IVPUSH ONETIME ONE Stop: 09/09/17 19:16 Last Admin: 09/09/17 19:20 Dose: 2 mg Norepinephrine Bitartrate (Levophed) 4 mg .ROUTE .[facility] ONE Stop: 09/07/17 16:41 Nystatin (Nystatin Crm) 0 gm TOP TID [facility] Last Admin: 09/14/17 08:46 Dose: 1 applic Omeprazole (Omeprazole) 20 mg PO DAILY [facility] Last Admin: 09/10/17 08:35 Dose: 20 mg Ondansetron HCl (Zofran) 4 mg IVPUSH Q3H PRN PRN Reason: Nausea Last Admin: 09/09/17 21:50 Dose: 4 mg Pantoprazole Sodium (Protonix) 40 mg PO DAILY [facility] Last Admin: 09/14/17 08:35 Dose: 40 mg Budesonide/Formoterol ( Symbicort 160/4.5) 0 each INH BID [facility] Last Admin: 09/14/17 10:44 Dose: Not Given Phenylephrine HCl (Phenylephrine In Ns 100 Mcg/Ml) Confirm Administered Dose 1 mg .ROUTE .STK-MED ONE Stop: 09/07/17 16:38 Phenylephrine HCl (Phenylephrine In Ns 100 Mcg/Ml) Confirm Administered Dose 1 mg .ROUTE .[facility] ONE Stop: 09/07/17 17:13 Polyethylene Glycol (Miralax) 17 gm PO DAILY PRN PRN Reason: Constipation Last Admin: 09/09/17 16:16 Dose: 17 gm Prednisone (Prednisone) 40 mg PO DAILY [facility] Last Admin: 09/14/17 08:35 Dose: 40 mg Ropinirole HCl (Requip) 1 mg PO TID PRN PRN Reason: Pain Last Admin: 09/14/17 08:35 Dose: 1 mg Senna/Docusate Sodium (Senna Plus) 2 tab PO DAILY PRN PRN Reason: Constipation Last Admin: 09/10/17 08:35 Dose: 2 tab Sertraline HCl (Zoloft) 50 mg PO DAILY [facility] Last Admin: 09/14/17 08:35 Dose: 50 mg Sodium Bicarbonate (Sodium Bicarbonate 8.4%) 50 meq IVPUSH ONETIME ONE Stop: 09/07/17 22:56 Last Admin: 09/07/17 23:25 Dose: 50 meq Sodium Chloride (Saline Flush) 10 ml FLUSH ASDIRECTED PRN PRN Reason: Keep Vein Open Sodium Chloride (Saline Flush) 2.5 ml FLUSH ASDIRECTED PRN PRN Reason: Keep Vein Open Tiotropium [place] (Spiriva Handihaler) 18 mcg INH DAILY [facility]UNDR[facility] Last Admin: 09/14/17 10:45 Dose: Not Given Zaleplon (Sonata) 5 mg PO BEDTIME PRN PRN Reason: Insomnia *Q Meaningful Use (DIS) - VTE *Q VTE Criteria *Q: - Stroke *Q Stroke Criteria *Q: - AMI *Q AMI Criteria *Q: - Free Text/Narrative Note: I have examined the patient. I have discussed findings and treatment plan with resident. I agree with the assessment and plan outlined in the following resident's note. Patient was treated for Ecoli pyelonephritis with septic shock and bacteremia
== END 2017-09-14 11:45 | disposition home health service (06) | DRG 853 ==
LOC: MW.ED 08:01 → MW.MS 10:46 → MW.ICU 18:25 → MW.MS 09-10 10:46
PROVIDERS: ADMIT Urology; ATTEND Urology
PROC: 0TH98YZ Insertion of Other Device into Ureter, Via Natural or Artificial Opening Endoscopic (ICD-10-PCS; principal; 2017-09-07)
PROC: 05HM33Z Insertion of Infusion Device into Right Internal Jugular Vein, Percutaneous Approach (ICD-10-PCS; 2017-09-07)
DX: N13.9 Obstructive and reflux uropathy, unspecified (principal); N39.0 Urinary tract infection, site not specified; E11.9 Type 2 diabetes mellitus without complications; A41.51 Sepsis due to Escherichia coli [E. coli]; I11.0 Hypertensive heart disease with heart failure; R65.21 Severe sepsis with septic shock; N13.6 Pyonephrosis; I13.0 Hypertensive heart and chronic kidney disease with heart failure and stage 1 through stage 4 chronic kidney disease, or unspecified chronic kidney disease; I25.10 Atherosclerotic heart disease of native coronary artery without angina pectoris; N18.9 Chronic kidney disease, unspecified; I50.9 Heart failure, unspecified; Z87.891 Personal history of nicotine dependence; E11.42 Type 2 diabetes mellitus with diabetic polyneuropathy; G47.33 Obstructive sleep apnea (adult) (pediatric); Z68.30 Body mass index [BMI] 30.0-30.9, adult; J44.9 Chronic obstructive pulmonary disease, unspecified; K21.9 Gastro-esophageal reflux disease without esophagitis; N40.0 Benign prostatic hyperplasia without lower urinary tract symptoms; M19.90 Unspecified osteoarthritis, unspecified site; Z79.82 Long term (current) use of aspirin; F32.9 Major depressive disorder, single episode, unspecified; F41.9 Anxiety disorder, unspecified; E66.9 Obesity, unspecified; E53.8 Deficiency of other specified B group vitamins; H91.93 Unspecified hearing loss, bilateral; E87.5 Hyperkalemia; R09.02 Hypoxemia; I95.9 Hypotension, unspecified; Z88.4 Allergy status to anesthetic agent; Z88.8 Allergy status to other drugs, medicaments and biological substances; Z79.4 Long term (current) use of insulin; Z79.899 Other long term (current) drug therapy
CPT/HCPCS: 36415; 71020; 74176; 80053; 81001; 83605; 85025; 85610; 87040 ×2; 87077 ×2; 87086; 87088; 87186 ×2; 93005; 96365; 99285; J0696; 00910; 36620; 51702; 71010; 71010-26; 76000; 76000-26; 80048; 82962; 84484; 84550; 85027; 93306; 93971-26-LT; 93971-LT; 94640; 97110-GP; 97161-GP; 97530-GP; 99283; A9270-GY; C1769; C2625; C9113; J0692; J0698; J0744; J1170; J1265; J1644; J1815-GY; J2250; J2270; J2405; J3010; J3260; J3420; J7030; J7040; J7050; J7120; Q9966

== ENCOUNTER 2017-10-13 11:57 | Day surgery (SDC) | payer MEDICARE, BC ==
[~2017-10-13 11:57] MED LIST: Lactated Ringers 1,000 ML IV SCH; Sodium Chloride 0.9% 10 ML Syringe FLUSH PRN; Sodium Chloride 0.9% 2.5 ML Syringe FLUSH PRN; ceFAZolin 2 GM in Premix Bag 1 BAG IV ONE
--- NOTE | 2017-10-13 13:26 | PCM.PREANE ---
Preanesthetic Assessment - Procedure Proposed Procedure: Stone removal and stent removal via cystoscope - Anesthesia/Transfusion/Family Hx Anesthesia History: Prior Anesthesia Reaction Family History of Anesthesia Reaction: No Transfusion History: Prior Transfusion Without Reaction Intubation History: Unknown - Review of Systems General: Other (aware of stent) Pulmonary: Other (sleep apnea) Cardiovascular: Other (HTN, AHD, abdominal aortic aneurysm) Gastrointestinal: Other (GERD) Neurological: Other (BPH) Other: Reports: Diabetes (typeII insulin dependent) - Physical Assessment NPO Status Date: 10/12/17 NPO Status Time: 22:00 O2 Sat by Pulse Oximetry: 96 Respiratory Rate: 16 Vital Signs: Last Vital Signs Temp 98.2 F 10/13/17 12:39 Pulse 63 10/13/17 12:39 Resp 16 10/13/17 12:39 BP 119/60 10/13/17 12:39 Pulse Ox 96 10/13/17 12:39 Height: 5 ft 7 in Weight: 239 lb ASA Class: 2 Mental Status: Alert & Oriented x3 Airway Class: Mallampati = 2 Dentition: Reports: Dentures (upper), Missing Tooth/Teeth Thyro-Mental Finger Breadths: 3 Mouth Opening Finger Breadths: 3 ROM/Head Extension: Full Lungs: Clear to Auscultation, Normal Respiratory Effort Cardiovascular: Regular Rate, Regular Rhythm, No Murmurs - Lab Values: Laboratory Last Values POC Glucose 127 mg/dL (60-110) H 10/13/17 12:26 - Allergies Allergies/Adverse Reactions: Allergies Allergy/AdvReac Type Severity Reaction Status Date / Time metformin Allergy Body Aches Verified 10/09/17 11:52 simvastatin [From Zocor] Allergy Body Aches Verified 10/09/17 11:52 - Blood Blood Available: No Product(s) Available: None - Anesthesia Plan Free Text/Narrative:: Hx of N and V with emergence from anesthetics....prophylaxis Pre-Op Medication Ordered: Other (fentanyl for restless leg complaint while waiting hours) - Acknowledgements Anesthesia Type Planned: General Anesthesia Pt an Appropriate Candidate for the Planned Anesthesia: Yes Alternatives and Risks of Anesthesia Discussed w Pt/Guardian: Yes Pt/Guardian Understands and Agrees with Anesthesia Plan: Yes PreAnesthesia Questionnaire HEENT History: Reports: Allergic Rhinitis, Cataract, Hard of Hearing Other HEENT History: has top denture, [employer] hearing aids Cardiovascular History: Reports: Aneurysm, Blood Clots/VTE/DVT, CAD, Heart Valve Replacement, High Cholesterol, Hypertension Other Cardiovascular History: states has had blood clots in his legs, took anticoagulants Respiratory History: Reports: Asthma, COPD, Sleep Apnea Other Respiratory History: uses CPAP Gastrointestinal History: Reports: GERD, Hiatal Hernia Genitourinary History: Reports: BPH, Renal Calculus Other Genitourinary History: hx of septic shock x2 for urinary obstruction/ infection....hx of renal failure Musculoskeletal History: Reports: Arthritis, Fracture, Gout Other Musculoskeletal History: hx of fx right ankle Psychiatric History: Reports: Depression Endocrine/Metabolic History: Reports: Obesity/BMI 30+ Hematologic History: Reports: Anemia, Blood Transfusion(s) Immunologic History: Reports: None Oncologic (Cancer) History: Reports: None Dermatologic History: Reports: None - Past Surgical History Head Surgeries/Procedures: Reports: None HEENT Surgical History: Reports: Adenoidectomy, Cataract Surgery, Naso-Sinus Surgery, Tonsillectomy Other HEENT Surgeries/Procedures: has had sinus surgery Cardiovascular Surgical History: Reports: AAA Repair Other Cardiovascular Surgeries/Procedures: with graft GI Surgical History: Reports: Appendectomy, Bariatric Procedure, Cholecystectomy , Colonoscopy, Other (See Below) Other GI Surgeries/Procedures: abdominoplasty Male Surgical History: Reports: Ureteral Stent Neurological Surgical History: Reports: Other (See Below) Other Neurological Surgeries/Procedures: "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 Musculoskeletal Surgical History: Reports: Arthroscopic Knee, ORIF, Shoulder Surgery Other Musculoskeletal Surgeries/Procedures:: ORIF right ankle (has hardware), bilateral RTCR - SUBSTANCE USE Smoking Status *Q: Former Smoker Tobacco Use Within Last Twelve Months: No Days Per Week of Alcohol Use: 0 Recreational Drug Use History: No - HOME MEDS Home Medications: Home Meds Acetaminophen [Tylenol] 2 tab PO Q4H PRN 02/08/16 [History] Zolpidem Tartrate 5 mg PO BEDTIME PRN 02/08/16 [History] amLODIPine [Norvasc] 5 mg PO QPM 02/08/16 [History] Albuterol [Proventil HFA] 2 puff INH TID PRN 10/13/16 [History] Doxazosin Mesylate [Cardura] 8 mg PO BEDTIME 10/13/16 [History] Ferrous Sulfate [Ferosul] 325 mg PO DAILY 10/13/16 [History] Finasteride 5 mg PO DAILY 10/13/16 [History] Fluticasone Propionate [Flonase] 1 spray NASBOTH BID 10/13/16 [History] Ipratropium [Atrovent] 0.5 mg NEB Q6HRRT PRN 10/13/16 [History] Montelukast [Singulair] 10 mg PO BEDTIME 10/13/16 [History] Omeprazole 20 mg PO ASDIRECTED 10/13/16 [History] Sertraline HCl 50 mg PO DAILY 10/13/16 [History] Tiotropium [Spiriva HandiHaler] 18 mcg INH DAILY 10/13/16 [History] buPROPion HCl [Wellbutrin SR] 150 mg PO BEDTIME 10/13/16 [History] buPROPion HCl [Wellbutrin SR] 300 mg PO DAILY 10/13/16 [History] rOPINIRole HCl [Requip] 1 mg PO TID PRN 10/13/16 [History] Metoprolol Succinate [Toprol XL] 200 mg PO DAILY 10/14/16 [History] Budesonide/Formoterol Fumarate [Symbicort 160-4.5 Mcg Inhaler] 2 puff INH BID [History] Cetirizine [ZyrTEC] 10 mg PO DAILY PRN 09/08/17 [History] Cholecalciferol (Vitamin D3) [Vitamin D3] 1,000 unit PO DAILY 09/08/17 [History] Cyanocobalamin (Vitamin B-12) [Vitamin B-12] 1 ml IM Q30D 09/08/17 [History] Folic Acid 400 mcg PO QAM 09/08/17 [History] Insulin Isophane NPH, Human [NovoLIN N] 6 - 8 units SUBCUT QPM 09/08/17 [History ] Insulin Isophane NPH, Human [NovoLIN N] 10 - 14 units SUBCUT QAM 09/08/17 [ History] Magnesium Oxide 400 mg PO BID 09/08/17 [History] Sodium Bicarbonate 1,300 mg PO BID 09/08/17 [History] Ciprofloxacin [Ciprofloxacin HCl] 500 mg PO BID 9 Days #18 tablet 09/14/17 [Rx] Gabapentin [Neurontin] 300 mg PO BID 30 Days #60 cap 09/14/17 [Rx] Calcium Carbonate [Tums] 1,000 mg PO BID 10/09/17 [History] Docusate Sodium 100 mg PO DAILY 10/09/17 [History] Folic Acid/Vit Bcomp,C [Renal Vitamin Tablet] 1 tab PO DAILY 10/09/17 [History] - CURRENT (IN HOUSE) MEDS Current Meds: Current Medications Lactated Ringer's (Ringers, Lactated) 1,000 mls @ 100 mls/hr IV ASDIRECTED [facility]UNDRA Last Admin: 10/13/17 12:34 Dose: 100 mls/hr Sodium Chloride (Saline Flush) 10 ml FLUSH ASDIRECTED PRN PRN Reason: Keep Vein Open Sodium Chloride (Saline Flush) 2.5 ml FLUSH ASDIRECTED PRN PRN Reason: Keep Vein Open Discontinued Medications Cefazolin Sodium/Dextrose 2 gm (/ Premix) 50 mls @ 100 mls/hr IV ONETIME ONE Stop: 10/13/17 07:29
[2017-10-13] MEDS: fentaNYL 100 MCG/2 ML SDV IVPUSH PRN ×2 (13:52→17:28)
[2017-10-13] MEDS ORDERED: fentaNYL 100 MCG/2 ML SDV ONE (16:09)
[2017-10-13] MEDS ORDERED: Ondansetron 4 MG/2 ML SDV ONE (16:09)
[2017-10-13] MEDS ORDERED: Midazolam 1 MG/ML 2 ML SDV ONE (16:09)
[2017-10-13] MEDS ORDERED: Propofol 200 MG/20 ML SDV ONE (16:09)
[2017-10-13] MEDS ORDERED: Dexamethasone 4 MG/ML 5 ML MDV ONE (16:10)
[2017-10-13] MEDS ORDERED: Rocuronium 10 MG/ML 10 ML Syringe ONE (16:10)
[2017-10-13] MEDS ORDERED: Sugammadex Sodium 200 MG/2 ML VIAL ONE (16:14)
[2017-10-13] MEDS ORDERED: Iopamidol 408 MG/ML 50 ML SDV ONE (16:21)
[2017-10-13] MEDS ORDERED: Metoclopramide 10 MG/2 ML SDV ONE (16:36)
[2017-10-13] MEDS ORDERED: Ciprofloxacin in D5W 200 ML ONE (16:51)
--- NOTE | 2017-10-13 19:04 | PCM.POSTAN ---
POST ANESTHESIA ASSESSMENT - MENTAL STATUS Mental Status: Alert, Oriented - VITAL SIGNS Pulse Rate: 64 SaO2: 99 (3 L) Resp Rate: 12 Blood Pressure: 132/64 Temperature: 36.5 C - RESPIRATORY Respiratory Status: Respiratory Rate WNL, Airway Patent, O2 Saturation Stable, Supplemental Oxygen - CARDIOVASCULAR CV Status: Pulse Rate WNL, Blood Pressure Stable - GASTROINTESTINAL GI Status: No Symptoms - PAIN Pain Score: 1 (Hips sore) - POST OP HYDRATION Hydration Status: Adequate & Stable
--- NOTE | 2017-10-13 19:05 | PCM48HPAN ---
Post Anesthesia Note - EVALUATION WITHIN 48HRS OF ANESTHETIC Vital Signs in Normal Range: Yes Patient Participated in Evaluation: Yes Respiratory Function Stable: Yes Airway Patent: Yes Cardiovascular Function Stable: Yes Hydration Status Stable: Yes Pain Control Satisfactory: Yes Nausea and Vomiting Control Satisfactory: Yes Mental Status Recovered: Yes - COMMENTS/OBSERVATIONS Free Text/Narrative:: Doing well no problems noted post.
[2017-10-13 19:39] VITALS: BP 148/72
--- NOTE | 2017-10-13 23:39 | OR ---
SURGEON: Nadja Ramires M.D. DATE OF PROCEDURE: 10/13/2017 PREOPERATIVE DIAGNOSIS: Left upper ureteral stone. POSTOPERATIVE DIAGNOSES: Left upper ureteral stone, status post double-J stent placement. OPERATIONS: 1. Cystoscopy. 2. Removal of double-J stent. 3. Ureteroscopy. 4. Removal of stones. DESCRIPTION OF PROCEDURE: The patient was given general anesthesia, placed in dorsal lithotomy position, and prepped and draped in sterile drapes. Cystourethroscopy was done. The double-J stent that was in the bladder in part, the lower end which was in the bladder was removed. The ureteroscope was then advanced in the left ureter, and the other double-J stent was taken out. At this point, the ureteroscope was advanced in the left ureter, all the way up to where the stones were encountered. There was a smaller one that was taken out at first in the mid ureter, then going all the way into the upper ureter, the larger one was removed. With that done, the procedure was terminated. CONDITION: The patient was moved to the recovery room in good condition. PRIMARY SURGEON: SECONDARY SURGEON: PILOT: REASON PILOT WAS NECESSARY: ROLE OF PILOT: BRANDON OBANDO /[id number]
--- NOTE | 2017-10-14 14:04 | CR ---
EXAMINATION: Ureteroscopy HISTORY: Intraoperative COMPARISON: None TECHNIQUE: Single view FINDINGS/IMPRESSION: An intraoperative control film demonstrates a scope projecting over the left shawn dder.
== END 2017-10-13 19:39 | disposition home or self-care (01) ==
LOC: MW.SDS 11:57
PROVIDERS: ATTEND Urology
DX: N20.1 Calculus of ureter (principal); K21.9 Gastro-esophageal reflux disease without esophagitis; Z88.8 Allergy status to other drugs, medicaments and biological substances; Z86.718 Personal history of other venous thrombosis and embolism; J44.9 Chronic obstructive pulmonary disease, unspecified; F32.9 Major depressive disorder, single episode, unspecified; N40.0 Benign prostatic hyperplasia without lower urinary tract symptoms; K59.09 Other constipation; F41.1 Generalized anxiety disorder; I12.9 Hypertensive chronic kidney disease with stage 1 through stage 4 chronic kidney disease, or unspecified chronic kidney disease; E11.22 Type 2 diabetes mellitus with diabetic chronic kidney disease; N18.3 Chronic kidney disease, stage 3 (moderate); E11.40 Type 2 diabetes mellitus with diabetic neuropathy, unspecified; E78.1 Pure hyperglyceridemia; G25.81 Restless legs syndrome; F51.04 Psychophysiologic insomnia; G47.33 Obstructive sleep apnea (adult) (pediatric); E66.01 Morbid (severe) obesity due to excess calories; Z68.37 Body mass index [BMI] 37.0-37.9, adult; Z87.891 Personal history of nicotine dependence; Z79.51 Long term (current) use of inhaled steroids; Z79.4 Long term (current) use of insulin; Z79.899 Other long term (current) drug therapy; Z95.2 Presence of prosthetic heart valve; Z95.828 Presence of other vascular implants and grafts; Z98.49 Cataract extraction status, unspecified eye; Z98.84 Bariatric surgery status; Z99.89 Dependence on other enabling machines and devices; Z98.890 Other specified postprocedural states
CPT/HCPCS: 52320; 76000; 82962; C1769; C9399; J0744; J1100; J2250; J2405; J2765; J3010; J7120; 00910; 88300; J2704; Q9966

== ENCOUNTER 2018-12-06 14:58 | Emergency (ER) | payer MEDICARE, BC ==
[2018-12-06] MEDS ORDERED: Promethazine 25 MG/ML SDV IM ONE (15:11)
--- NOTE | 2018-12-06 15:13 | EDM.PDOC ---
ED HPI GENERAL MEDICAL PROBLEM - General Chief Complaint: Neuro Symptoms/Deficits Stated Complaint: UNSTEADY GAIT Time Seen by Provider: 12/06/18 15:12 Source of Information: Reports: Patient - History of Present Illness INITIAL COMMENTS - FREE TEXT/NARRATIVE: HISTORY AND PHYSICAL: History of present illness: []Patient sent over from clinic, he has history of vertigo presents with dizziness No fever nausea vomiting chills sweats no chest pain shortness breath headache or palpitation no bowel or urine symptoms History of end-stage renal disease on dialysis with diabetes Review of systems: As per history of present illness and below otherwise all systems reviewed and negative. Past medical history: As per history of present illness and as reviewed below otherwise noncontributory. Surgical history: As per history of present illness and as reviewed below otherwise noncontributory. Social history: No reported history of drug or alcohol abuse. Family history: As per history of present illness and as reviewed below otherwise noncontributory. Physical exam: HEENT: Atraumatic, normocephalic, pupils reactive, negative for conjunctival pallor or scleral icterus, mucous membranes moist, throat clear, neck supple, nontender, trachea midline. Lungs: Clear to auscultation, breath sounds equal bilaterally, chest nontender. Heart: S1S2, regular, negative for clicks, rubs, or JVD. Abdomen: Soft, nondistended, nontender. Negative for masses or hepatosplenomegaly. Negative for costovertebral tenderness. Pelvis: Stable nontender. Genitourinary: Deferred. Rectal: Deferred. Extremities: Atraumatic, negative for cords or calf pain. Neurovascular unremarkable. Neuro: Awake, alert, oriented. Cranial nerves II through XII unremarkable. Cerebellum unremarkable. Motor and sensory unremarkable throughout. Exam nonfocal. Diagnostics: [BC CMP troponin EKG Chest [address] no contrast ] Therapeutics: normal saline Phenergan 25 mg IM Scopolamine transdermal #10 no refill Impression: [Vertigo] Chronic history of baseline, due for dialysis tomorrow morning Definitive disposition and diagnosis as appropriate pending reevaluation and review of above. - Related Data Allergies Allergy/AdvReac Type Severity Reaction Status Date / Time atorvastatin [From Lipitor] Allergy Body Aches Verified 12/06/18 15:34 metformin Allergy Body Aches Verified 06/16/18 15:44 simvastatin [From Zocor] Allergy Body Aches Verified 06/16/18 15:44 Home Meds: Home Meds Acetaminophen [Tylenol] 2 tab PO Q4H PRN 02/08/16 [History] Zolpidem Tartrate 5 mg PO BEDTIME PRN 02/08/16 [History] amLODIPine [Norvasc] 5 mg PO QPM 02/08/16 [History] Albuterol [Proventil HFA] 2 puff INH TID PRN 10/13/16 [History] Doxazosin Mesylate [Cardura] 8 mg PO BEDTIME 10/13/16 [History] Ferrous Sulfate [Ferosul] 325 mg PO DAILY 10/13/16 [History] Finasteride 5 mg PO DAILY 10/13/16 [History] Fluticasone Propionate [Flonase] 1 spray NASBOTH BID 10/13/16 [History] Ipratropium [Atrovent] 0.5 mg NEB Q6HRRT PRN 10/13/16 [History] Montelukast [Singulair] 10 mg PO BEDTIME 10/13/16 [History] Omeprazole 20 mg PO ASDIRECTED 10/13/16 [History] Sertraline HCl 50 mg PO DAILY 10/13/16 [History] Tiotropium [Spiriva HandiHaler] 18 mcg INH DAILY 10/13/16 [History] buPROPion HCl [Wellbutrin SR] 150 mg PO BEDTIME 10/13/16 [History] buPROPion HCl [Wellbutrin SR] 300 mg PO DAILY 10/13/16 [History] rOPINIRole HCl [Requip] 1 mg PO TID PRN 10/13/16 [History] Metoprolol Succinate [Toprol XL] 200 mg PO DAILY 10/14/16 [History] Budesonide/Formoterol Fumarate [Symbicort 160-4.5 Mcg Inhaler] 2 puff INH BID [History] Cetirizine [ZyrTEC] 10 mg PO DAILY PRN 09/08/17 [History] Cholecalciferol (Vitamin D3) [Vitamin D3] 1,000 unit PO DAILY 09/08/17 [History] Cyanocobalamin (Vitamin B-12) [Vitamin B-12] 1 ml IM Q30D 09/08/17 [History] Folic Acid 400 mcg PO QAM 09/08/17 [History] Insulin Isophane NPH, Human [NovoLIN N] 6 - 8 units SUBCUT QPM 09/08/17 [History ] Insulin Isophane NPH, Human [NovoLIN N] 10 - 14 units SUBCUT QAM 09/08/17 [ History] Magnesium Oxide 400 mg PO BID 09/08/17 [History] Sodium Bicarbonate 1,300 mg PO BID 09/08/17 [History] Ciprofloxacin [Ciprofloxacin HCl] 500 mg PO BID 9 Days #18 tablet 09/14/17 [Rx] Gabapentin [Neurontin] 300 mg PO BID 30 Days #60 cap 09/14/17 [Rx] Calcium Carbonate [Tums] 1,000 mg PO BID 10/09/17 [History] Docusate Sodium 100 mg PO DAILY 10/09/17 [History] Folic Acid/Vit Bcomp,C [Renal Vitamin Tablet] 1 tab PO DAILY 10/09/17 [History] Past Medical History HEENT History: Reports: Allergic Rhinitis, Cataract, Hard of Hearing Other HEENT History: has top denture, [employer] hearing aids Cardiovascular History: Reports: Aneurysm, Blood Clots/VTE/DVT, CAD, Heart Valve Replacement, High Cholesterol, Hypertension Other Cardiovascular History: states has had blood clots in his legs, took anticoagulants Respiratory History: Reports: Asthma, COPD, Sleep Apnea Other Respiratory History: uses CPAP Gastrointestinal History: Reports: GERD, Hiatal Hernia Genitourinary History: Reports: BPH, Renal Calculus Other Genitourinary History: hx of septic shock x2 for urinary obstruction/ infection....hx of renal failure Musculoskeletal History: Reports: Arthritis, Fracture, Gout Other Musculoskeletal History: hx of fx right ankle Psychiatric History: Reports: Depression Endocrine/Metabolic History: Reports: Obesity/BMI 30+ Hematologic History: Reports: Anemia, Blood Transfusion(s) Immunologic History: Reports: None Oncologic (Cancer) History: Reports: None Dermatologic History: Reports: None - Past Surgical History Head Surgeries/Procedures: Reports: None HEENT Surgical History: Reports: Adenoidectomy, Cataract Surgery, Naso-Sinus Surgery, Tonsillectomy Other HEENT Surgeries/Procedures: has had sinus surgery Cardiovascular Surgical History: Reports: AAA Repair Other Cardiovascular Surgeries/Procedures: with graft GI Surgical History: Reports: Appendectomy, Bariatric Procedure, Cholecystectomy , Colonoscopy, Other (See Below) Other GI Surgeries/Procedures: abdominoplasty Male Surgical History: Reports: Ureteral Stent Neurological Surgical History: Reports: Other (See Below) Other Neurological Surgeries/Procedures: "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 Musculoskeletal Surgical History: Reports: Arthroscopic Knee, ORIF, Shoulder Surgery Other Musculoskeletal Surgeries/Procedures:: ORIF right ankle (has hardware), bilateral RTCR Social & Family History - Family History Family Medical History: Noncontributory - Caffeine Use Caffeine Use: Reports: Coffee, Soda, Tea ED ROS GENERAL - Review of Systems Review Of Systems: See Below ED EXAM, GENERAL - Physical Exam Exam: See Below Course - Vital Signs Last Recorded V/S: Last Vital Signs Temp 97.5 F 12/06/18 15:34 Pulse 68 12/06/18 15:34 Resp 20 12/06/18 15:34 BP 116/64 12/06/18 15:34 Pulse Ox 93 L 12/06/18 15:34 - Orders/Labs/Meds Orders: Active Orders 24 hr Category Date Time Status EKG Documentation Completion [RC] STAT Care 12/06/18 15:11 Active UA RFX ABILIO AND CULT IF INDIC [URIN] Stat Lab 12/06/18 15:11 Ordered Sodium Chloride 0.9% [Normal Saline] 250 ml Med 12/06/18 15:15 Active IV STAT Medication Orders Sodium Chloride (Normal Saline) 250 mls @ 999 mls/hr IV STAT SAUNDRA Last Admin: 12/06/18 15:39 Dose: 999 mls/hr Labs: Laboratory Tests 12/06/18 12/06/18 12/06/18 Range/Units 15:27 15:27 15:27 WBC 13.40 H (4.0-11.0) K/uL RBC 3.50 L (4.50-5.90) M/uL Hgb 10.5 L (13.0-17.0) g/dL Hct 32.6 L (38.0-50.0) % MCV 93.1 (80.0-98.0) fL MCH 30.0 (27.0-32.0) pg MCHC 32.2 (31.0-37.0) g/dL RDW Std Deviation 51.8 (28.0-62.0) fl RDW Coeff of Jaleesa 15 (11.0-15.0) % Plt Count 249 (150-400) K/uL MPV 9.40 (7.40-12.00) fL Neut % (Auto) 78.6 (48.0-80.0) % Lymph % (Auto) 6.8 L (16.0-40.0) % Letcher % (Auto) 11.3 (0.0-15.0) % Eos % (Auto) 3.0 (0.0-7.0) % Baso % (Auto) 0.3 (0.0-1.5) % Neut # (Auto) 10.5 H (1.4-5.7) K/uL Lymph # (Auto) 0.9 (0.6-2.4) K/uL Letcher # (Auto) 1.5 H (0.0-0.8) K/uL Eos # (Auto) 0.4 (0.0-0.7) K/uL Baso # (Auto) 0.0 (0.0-0.1) K/uL Nucleated RBC % 0.0 /100WBC Nucleated RBCs # 0 K/uL INR 1.00 Sodium 141 (136-148) mmol/L Potassium 4.8 (3.5-5.1) mmol/L Chloride 103 (98-107) mmol/L Carbon Dioxide 25.2 (21.0-32.0) mmol/L BUN 48 H (7.0-18.0) mg/dL Creatinine 8.2 H (0.8-1.3) mg/dL Est Cr Clr Drug Dosing 7.35 mL/min Estimated GFR (MDRD) 6.5 ml/min Glucose 70 L (74-106) mg/dL Calcium 8.8 (8.5-10.1) mg/dL Total Bilirubin 0.7 (0.2-1.0) mg/dL AST 13 L (15-37) IU/L ALT 26 (14-63) IU/L Alkaline Phosphatase 62 (46-116) U/L Troponin I < 0.050 (0.000-0.056) ng/mL Total Protein 7.0 (6.4-8.2) g/dL Albumin 3.0 L (3.4-5.0) g/dL Globulin 4.0 (2.6-4.0) g/dL Albumin/Globulin Ratio 0.8 L (0.9-1.6) Meds: Medications Generic Name Dose Route Start Last Admin Trade Name Freq PRN Reason Stop Dose Admin Sodium Chloride 250 mls @ 999 mls/hr 12/06/18 15:15 12/06/18 15:39 Normal Saline IV 999 mls/hr STAT SAUNDRA Administration Discontinued Medications Generic Name Dose Route Start Last Admin Trade Name Freq PRN Reason Stop Dose Admin Promethazine HCl 25 mg 12/06/18 15:11 12/06/18 15:39 Phenergan IM 12/06/18 15:12 25 mg ONETIME ONE Administration Departure - Departure Time of Disposition: 17:08 Disposition: Home, Self-Care 01 Condition: Good Clinical Impression: Vertigo - Discharge Information Referrals: PCP,None [Primary Care Provider] - Forms: ED Department Discharge Additional Instructions: The following information is given to patients seen in the emergency department who are being discharged to home. This information is to outline your options for follow-up care. We provide all patients seen in our emergency department with a follow-up referral. The need for follow-up, as well as the timing and circumstances, are variable depending upon the specifics of your emergency department visit. If you don't have a primary care physician on staff, we will provide you with a referral. We always advise you to contact your personal physician following an emergency department visit to inform them of the circumstance of the visit and for follow-up with them and/or the need for any referrals to a consulting specialist. The emergency department will also refer you to a specialist when appropriate. This referral assures that you have the opportunity for follow-up care with a specialist. All of these measure are taken in an effort to provide you with optimal care, which includes your follow-up. Under all circumstances we always encourage you to contact your private physician who remains a resource for coordinating your care. When calling for follow-up care, please make the office aware that this follow-up is from your recent emergency room visit. If for any reason you are refused follow-up, please contact the [facility] emergency department at and asked to speak to the emergency department charge nurse. - My Orders Last 24 Hours: My Active Orders 12/06/18 15:11 EKG Documentation Completion [RC] STAT UA RFX ABILIO AND CULT IF INDIC [URIN] Stat 12/06/18 15:15 Sodium Chloride 0.9% [Normal Saline] 250 ml IV STAT - Assessment/Plan Last 24 Hours: My Active Orders 12/06/18 15:11 EKG Documentation Completion [RC] STAT UA RFX ABILIO AND CULT IF INDIC [URIN] Stat 12/06/18 15:15 Sodium Chloride 0.9% [Normal Saline] 250 ml IV STAT
[2018-12-06] MEDS ORDERED: Sodium Chloride 0.9% 250 ML IV SCH (15:15)
--- NOTE | 2018-12-06 16:00 | CR ---
EXAMINATION: Portable chest radiograph. HISTORY: Shortness of breath. FINDINGS: The trachea is midline. The cardiomediastinal silhouette is within normal limits. No pulmonary infiltrates, effusions or pneumothorax. There is a right-sided dialysis catheter noted. Chronic interstitial prominence identified. Osseous structures appear unremarkable. IMPRESSION: Chronic interstitial prominence without an acute cardiopulmonary finding.
--- NOTE | 2018-12-06 16:17 | CT ---
EXAMINATION: Non contrast CT head. Coronal and sagittal reformats. HISTORY: Pain FINDINGS: No evidence of intra or extra axial hemorrhage, mass, midline shift, hydrocephalus or edema. Mild periventricular and subcortical white matter hypodensities. No hypoattenuation changes in the major vascular territories to suggest acute infarct. No abnormal intracranial calcifications are detected. No evidence of substantial vascular calcifications. Paranasal sinuses and mastoid air cells are well aerated without substantial findings. Antrostomy changes are noted. Orbits and globes are symmetric. Pituitary fossa appears unremarkable. Calvarium is intact. No evidence of skull fracture. IMPRESSION: 1. No acute intracranial findings. 2. Mild small vessel ischemic changes.
[2018-12-06 16:20] LABS: CHLORIDE,CL 103 mmol/L (98-107); SODIUM,NA 141 mmol/L (136-148)
[2018-12-06 17:26] VITALS: BP 144/73
== END 2018-12-06 17:26 | disposition home or self-care (01) ==
LOC: MW.ED 14:58
DX: R42 Dizziness and giddiness (principal); I10 Essential (primary) hypertension; F32.9 Major depressive disorder, single episode, unspecified; E78.00 Pure hypercholesterolemia, unspecified; J44.9 Chronic obstructive pulmonary disease, unspecified; D64.9 Anemia, unspecified; Z79.899 Other long term (current) drug therapy; Z79.4 Long term (current) use of insulin; Z88.8 Allergy status to other drugs, medicaments and biological substances
CPT/HCPCS: 36415; 70450; 71045; 80053; 84484; 85025; 85610; 93005; 96360; 96372; 99284; J2550; J7050; 99283